=== PATIENT | female | born 1985 | race Caucasian/White ===

== ENCOUNTER 2016-07-26 14:13 | Emergency (ER) | payer SELFPAY ==
[~2016-07-26] VITALS: Ht 152.4 cm; Wt 57.2 kg
[~2016-07-26 14:13] MED LIST: ASPI-390 PO; IBUP-1050 PO
[2016-07-26 14:16] VITALS: TEMP 36.9; Ht 152.4 cm; Wt 57.2 kg
--- NOTE | 2016-07-26 14:45 | EMERGENCY ROOM VISIT NOTE ---
History Report prepared by Sachinibe: Sowmya Patel Under the Supervision of: Dr. Katia Fam M.D. First contact with patient: 14:32 Chief Complaint: VAGINAL DISCHARGE Stated Complaint: SOMETHING IS COMING OUT OF PATIENT History of Present Illness The patient is a 31 year old female who presents to the Emergency Room with complaints of persistent vaginal bleeding and discharge over the past month and a half. The patient states that she has had multiple abnormal menstrual periods and came to the emergency room to be evaluated for her vaginal bleeding a week ago. She admits that she became irritated due to the long wait in the ER and left without full testing and treatment. Since then, the bleeding has slowed down some. The patient states that she has noticed a clear, foul smelling fluid coming from her vagina. When she started her stream of urine earlier today, she felt something come out of her vagina and saw a white solid mass coming from her vagina. The patient states that there is no chance of as she has not had intercourse in several years. She has had one vaginal delivery 13 years ago. She does have her uterus. Source of History: patient Onset: a month and a half ago Position: other (vaginal) Quality: other (foul odor) Timing: other (persistent) Review of Systems See HPI for pertinent positives & negatives. A total of 10 systems reviewed and were otherwise negative. Past Medical & Surgical Medical Problems: (1) Kidney stones (2) Methicillin resistant Staphylococcus aureus infection Surgical Problems: (1) History of lithotripsy Family History Diabetes mellitus Social History Smoking Status: Current Every Day Smoker Alcohol Use: none Drug Use: none Marital Status: single Housing Status: lives with family Occupation Status: employed Current/Historical Medications Scheduled Buprenorphine Hcl-Naloxone Hcl (Suboxone 8-2 Mg), 1 EA SL DAILY Ibuprofen (Advil), 600 MG PO BID Miscellaneous Medications Tbbjpqp-Wekoghfcemqqx-Jocttqar (Excedrin Migraine), 1 TAB PO Allergies Coded Allergies: No Known Allergies (Unverified , 07/26/16) Physical Exam Vital Signs Date Time Temp Pulse Resp B/P Pulse Ox O2 Delivery O2 Flow Rate FiO2 07/26/16 18:56 69 18 120/77 100 07/26/16 18:05 68 20 115/78 99 Room Air 07/26/16 16:07 66 18 130/87 100 Room Air 07/26/16 14:16 36.9 78 18 146/97 96 Room Air Physical Exam Vital signs reviewed. General: Well-appearing 31 year old female, in no significant distress. HEENT: No scleral icterus, PERRLA, neck supple. Atraumatic. Cardiovascular: Regular rate and rhythm, no extra sounds. Pulmonary: Clear to auscultation bilaterally, normal work of breathing. Abdomen: Soft, nontender, nondistended, positive bowel sounds. Pelvic: She has normal external female genitals, clear vaginal discharge, 5 cm soft tissue mass fairly smooth with a white-maida discoloration, unable to be reduced without significant pain, minimal dark blood in the vault. Musculoskeletal: Atraumatic, no peripheral edema. Neurologic: Patient awake alert and oriented x 3 Skin: Warm, dry, no rash Medical Decision & Procedures ER Provider Diagnostic Interpretation: Radiology results as stated below per my review and radiologist interpretation: PELVIC ULTRASOUND, TRANSABDOMINAL AND TRANSVAGINAL HISTORY: dysfunctional uterine bleeding, clear d/c COMPARISON: Abdomen and pelvis CT 04/12/2014. FINDINGS: Uterus: 10.1 x 5.6 x 6.7 cm. The cervix is distended and filled with complex fluid. The cervix is heterogeneous and demonstrates increased color flow. The endometrial stripe is borderline thickened measuring up to 1.3 cm. The endometrial stripe is heterogeneous and demonstrates increased color flow. There are normal bilateral ovaries. No significant pelvic free fluid. Multiple bowel loops within the right adnexa. IMPRESSION: 1. Distended cervix containing complex fluid. The cervix is heterogeneous and demonstrates increased color flow. There is also a heterogeneous and borderline thickened endometrium demonstrating increased color flow. Therefore, this could represent an infectious process such as pelvic inflammatory disease. Clinical correlation recommended. 2. Normal bilateral ovaries. Electronically signed by: Jace Be M.D. 07/26/2016 5:57 PM Dictated Date/Time: 07/26/2016 5:50 PM Laboratory Results 07/26/16 15:05 Red Blood Count 3.50, Mean Corpuscular Volume 87.7, Mean Corpuscular Hemoglobin 28.6, Mean Corpuscular Hemoglobin Concent 32.6, Mean Platelet Volume 9.9, Neutrophils (%) (Auto) 49.3, Lymphocytes (%) (Auto) 39.0, Monocytes (%) (Auto) 7.8, Eosinophils (%) (Auto) 3.4, Basophils (%) (Auto) 0.4, Neutrophils # (Auto) 3.82, Lymphocytes # (Auto) 3.02, Monocytes # (Auto) 0.60, Eosinophils # (Auto) 0.26, Basophils # (Auto) 0.03 07/26/16 15:05 Test 07/26/16 15:00 07/26/16 15:05 07/26/16 15:25 Urine Color YELLOW Urine Appearance CLEAR (CLEAR) Urine pH 6.5 (4.5-7.5) Urine Specific [place] 1.018 (1.000-1.030) Urine Protein NEG (NEG) Urine Glucose (UA) NEG (NEG) Urine Ketones NEG (NEG) Urine Occult Blood 2+ (NEG) Urine Nitrite NEG (NEG) Urine Bilirubin NEG (NEG) Urine Urobilinogen NEG (NEG) Urine Leukocyte Esterase TRACE (NEG) Urine WBC (Auto) 1-5 /hpf (0-5) Urine RBC (Auto) 10-30 /hpf (0-4) Urine Hyaline Casts (Auto) 0 /lpf (0-5) Urine Epithelial Cells (Auto) 10-20 /lpf (0-5) Urine Bacteria (Auto) NEG (NEG) Urine Test NEG (NEG) White Blood Count 7.74 K/uL (4.8-10.8) Red Blood Count 3.50 M/uL (4.2-5.4) Hemoglobin 10.0 g/dL (12.0-16.0) Hematocrit 30.7 % (37-47) Mean Corpuscular Volume 87.7 fL (80-100) Mean Corpuscular Hemoglobin 28.6 pg (25-34) Mean Corpuscular Hemoglobin Concent 32.6 g/dl (32-36) Platelet Count 313 K/uL (130-400) Mean Platelet Volume 9.9 fL (7.4-10.4) Neutrophils (%) (Auto) 49.3 % Lymphocytes (%) (Auto) 39.0 % Monocytes (%) (Auto) 7.8 % Eosinophils (%) (Auto) 3.4 % Basophils (%) (Auto) 0.4 % Neutrophils # (Auto) 3.82 K/uL (1.4-6.5) Lymphocytes # (Auto) 3.02 K/uL (1.2-3.4) Monocytes # (Auto) 0.60 K/uL (0.11-0.59) Eosinophils # (Auto) 0.26 K/uL (0-0.5) Basophils # (Auto) 0.03 K/uL (0-0.2) RDW Standard Deviation 43.1 fL (36.4-46.3) RDW Coefficient of Variation 13.4 % (11.5-14.5) Immature Granulocyte % (Auto) 0.1 % Immature Granulocyte # (Auto) 0.01 K/uL (0.00-0.02) Anion Gap 8.0 mmol/L (3-11) Est Creatinine Clear Calc Drug Dose 140.9 ml/min Estimated GFR () > 150.0 Estimated GFR (Non- 131.7 BUN/Creatinine Ratio 40.7 (10-20) Calcium Level 8.6 mg/dl (8.5-10.1) Total Bilirubin 0.2 mg/dl (0.2-1) Direct Bilirubin < 0.1 mg/dl (0-0.2) Aspartate Amino Transf (AST/SGOT) 15 U/L (15-37) Alanine Aminotransferase (ALT/SGPT) 17 U/L (12-78) Alkaline Phosphatase 65 U/L (45-117) Total Protein 6.8 gm/dl (6.4-8.2) Albumin 3.6 gm/dl (3.4-5.0) Laboratory results per my review. Medications Administered Medications (Trade) Dose Ordered Sig/Juwan Route Start Time Stop Time Status Last Admin Dose Admin Sodium Chloride (Nss 1000ml) 1,000 ml @ 999 mls/hr Q1H1M STAT IV 07/26/16 14:46 07/26/16 15:46 DC 07/26/16 15:35 999 MLS/HR Ketorolac Tromethamine (Toradol Inj) 30 mg NOW STAT IV 07/26/16 14:46 07/26/16 14:50 DC 07/26/16 15:35 30 MG ED Course 1436: Past medical records reviewed. The patient was evaluated in room C5. A complete history and physical examination was performed. 1446: Ordered Toradol Inj 30 mg IV, NSS 1000 ml @ 999 mls/hr IV. 1805: I discussed the imaging results with Dr. Be - Radiology. 1810: I discussed the case with Dr. Juan Carlos CABR[employer]A [employer]. She will have the office call the patient on Thursday to schedule an outpatient appointment. She thinks the patient's radiology results and physical exam suggest a polyp obstructing uterine flow. 1814: Upon reevaluation, the patient was resting comfortably. I discussed findings with the patient. She verbalized agreement of the treatment plan. The patient was discharged home. Medical Decision Differential diagnosis: Dysfunctional uterine bleeding, uterine mass, uterine prolapse, bladder prolapse , rectal prolapse, uterine fibroid, STD. This patient was evaluated and appeared to be in no significant distress. IV access was obtained and laboratory work was drawn. Pelvic exam was performed and reveals a large mass near the cervix. An ultrasound was performed and is read as above. Vaginal cultures were sent. I did discuss the findings with Dr. Brittni Rangel of [employer]. She suggests that may be the mass is a polyp of the cervix and is blocking flow from the uterus. Nonetheless patient is stable and this has been going on for several weeks if not longer. Case management evaluated the patient and gave her some resources regarding insurance coverage. [employer] will contact the patient on Thursday morning with an appointment for evaluation this week. Patient seems happy with the plan and will return to the ER for worsening of symptoms or any medical concerns. Consults Time Called: 1800 Consulting Physician: Dr. Be - Radiology Returned Call: [phone] I discussed the imaging results with him. Additional Consults: Time Called: 180 Consulted Physician: Dr. Juan Carlos CAB[employer] Returned Call: [phone] Additional Comments: I discussed the case with her. She will have the office call the patient on Thursday to schedule an outpatient appointment. She thinks the patient's radiology results and physical exam suggest a polyp obstructing uterine flow. Impression Primary Impression: Cervical mass Scribe Attestation The scribe's documentation has been prepared under my direction and personally reviewed by me in its entirety. I confirm that the note above accurately reflects all work, treatment, procedures, and medical decision making performed by me. Departure Information Dispostion Home / Self-Care Referrals No Doctor, Assigned (PCP) Brittni Rangel M.D.([employer]) Forms HOME CARE DOCUMENTATION FORM, IMPORTANT VISIT INFORMATION, WORK / SCHOOL INSTRUCTIONS Patient Instructions A Signature Page, My [facility] Additional Instructions Diagnosis: Cervical mass [employer] O[employer] will call you on Thursday to help arrange a follow-up appointment. Return to the emergency department for worsening of symptoms or any medical concerns.
[2016-07-26] MEDS ORDERED: SODIUM CHLORIDE 0.9% 1000ML 1,000 ML IV STA (14:46)
[2016-07-26] MEDS ORDERED: KETOROLAC TROMETHAMINE 30 MG/ML VIAL IV STA (14:46)
[2016-07-26 15:21] LABS: BASO % 0.4 %; BASO ABS # 0.03 K/uL (0-0.2); COMPLETE YES; EOS % 3.4 %; HEMATOCRIT 30.7 % (37-47); IG% 0.1 %; LYMPH ABS # 3.02 K/uL (1.2-3.4); MEAN CELL VOLUME 87.7 fL (80-100); MEAN CORPUSCULAR HEMOGLOBIN 28.6 pg (25-34); MEAN CORPUSCULAR HGB CONC 32.6 g/dl (32-36); MEAN PLATELET VOLUME 9.9 fL (7.4-10.4); MONO % 7.8 %; NEUT % 49.3 %; PLATELET COUNT 313 K/uL (130-400); WHITE BLOOD COUNT 7.74 K/uL (4.8-10.8)
[2016-07-26 15:30] LABS: URINE APPEARANCE CLEAR (CLEAR); URINE BILIRUBIN NEG (NEG); URINE COLOR YELLOW; URINE NITRITE NEG (NEG); URINE PH 6.5 (4.5-7.5); URINE SPECIFIC GRAVITY 1.018 (1.000-1.030); UROBILINOGEN NEG (NEG); ZZUR CULT IF INDIC CLEAN CATCH NO
[2016-07-26 15:33] LABS: MANUAL MICROSCOPIC REQUIRED? NO; REVIEW REQ? NO
[2016-07-26 15:35] LABS: ALT/SGPT 17 U/L (12-78); BLOOD UREA NITROGEN 18 mg/dl (7-18); BUN/CREATININE RATIO 40.7 (10-20); CALCIUM 8.6 mg/dl (8.5-10.1); CARBON DIOXIDE 26 mmol/L (21-32); CHLORIDE 107 mmol/L (98-107); CREATININE 0.45 mg/dl (0.60-1.20); GLUCOSE 78 mg/dl (70-99); POTASSIUM 3.7 mmol/L (3.5-5.1); SODIUM 141 mmol/L (136-145)
[2016-07-26 15:38] LABS: ALKALINE PHOSPHATASE 65 U/L (45-117); AST/SGOT 15 U/L (15-37)
--- NOTE | 2016-07-26 17:59 | DIAGNOSTIC IMAGING REPORT ---
PELVIC ULTRASOUND, TRANSABDOMINAL AND TRANSVAGINAL HISTORY: dysfunctional uterine bleeding, clear d/c COMPARISON: Abdomen and pelvis CT 04/12/2014. FINDINGS: Uterus: 10.1 x 5.6 x 6.7 cm. The cervix is distended and filled with complex fluid. The cervix is heterogeneous and demonstrates increased color flow. The endometrial stripe is borderline thickened measuring up to 1.3 cm. The endometrial stripe is heterogeneous and demonstrates increased color flow. There are normal bilateral ovaries. No significant pelvic free fluid. Multiple bowel loops within the right adnexa. IMPRESSION: 1. Distended cervix containing complex fluid. The cervix is heterogeneous and demonstrates increased color flow. There is also a heterogeneous and borderline thickened endometrium demonstrating increased color flow. Therefore, this could represent an infectious process such as pelvic inflammatory disease. Clinical correlation recommended. 2. Normal bilateral ovaries. Electronically signed by: Jace Be M.D. 07/26/2016 5:57 PM Dictated Date/Time: 07/26/2016 5:50 PM
[2016-07-26 18:56] VITALS: BP 120/77; PULSE 69; O2SAT 100
[2016-07-30 03:25] LABS: CHLAMYDIA TRACH RNA*** NOT DETECTED (NOT DETECTED); GC (NEIS GONORRHOEAE)RNA** NOT DETECTED (NOT DETECTED); TRICHOMONAS VAGINALIS RNA** NOT DETECTED (NOT DETECTED)
[2016-08-11] MEDS ORDERED: ASPI-390 PO (10:00)
[2016-08-11] MEDS ORDERED: BUPR8MIS SL (16:46)
== END 2016-07-26 18:57 | disposition home or self-care (01) ==
LOC: C.EDB 14:14 → C.EDC 18:57
DX: N88.9 Noninflammatory disorder of cervix uteri, unspecified (principal); F17.200 Nicotine dependence, unspecified, uncomplicated; Z86.14 Personal history of Methicillin resistant Staphylococcus aureus infection

== ENCOUNTER 2016-08-09 10:59 | Emergency (ER) | payer SELFPAY ==
[~2016-08-09] VITALS: Ht 149.9 cm; Wt 54.5 kg
[2016-08-09 11:05] VITALS: TEMP 37.2; Ht 149.9 cm; Wt 54.5 kg
[2016-08-09] MEDS ORDERED: SODIUM CHLORIDE 0.9% 500ML 500 ML IV STA (11:45)
[2016-08-09 12:06] LABS: HEMATOCRIT 22.9 % (37-47); MEAN CELL VOLUME 84.8 fL (80-100); MEAN CORPUSCULAR HGB CONC 31.9 g/dl (32-36); MEAN PLATELET VOLUME 9.2 fL (7.4-10.4); PLATELET COUNT 312 K/uL (130-400)
[2016-08-09 12:29] LABS: BASO % 0.1 %; BASO ABS # 0.01 K/uL (0-0.2); COMPLETE YES; EOS % 1.5 %; HYPOCHROMIA PRESENT; IG% 0.1 %; LYMPH % 29.1 %; MONO % 8.3 %; NEUT % 60.9 %; POLYCHROMASIA 1+
[2016-08-09 12:30] LABS: ALT/SGPT 14 U/L (12-78); AST/SGOT 5 U/L (15-37); BLOOD UREA NITROGEN 15 mg/dl (7-18); BUN/CREATININE RATIO 29.1 (10-20); CALCIUM 8.1 mg/dl (8.5-10.1); CARBON DIOXIDE 27 mmol/L (21-32); CHLORIDE 111 mmol/L (98-107); CREATININE 0.51 mg/dl (0.60-1.20); GLUCOSE 82 mg/dl (70-99); POTASSIUM 3.9 mmol/L (3.5-5.1); SODIUM 143 mmol/L (136-145)
[2016-08-09 12:33] LABS: ALKALINE PHOSPHATASE 57 U/L (45-117)
--- NOTE | 2016-08-09 13:44 | DIAGNOSTIC IMAGING REPORT ---
ULTRASOUND OF THE PELVIS CLINICAL HISTORY: Pelvic mass. COMPARISON STUDY: Pelvic CT dated 04/12/2014. Pelvic ultrasound dated 07/26/2016. TECHNIQUE: Real-time, grayscale, and color flow sonography of the pelvis is performed both transabdominally and endovaginally. Images are reviewed in the transverse and longitudinal planes. FINDINGS: Uterus: The retroverted uterus is normal in size measuring 9.9 x 6.6 x 6.7 cm. Endometrium: The endometrium is slightly heterogeneous, and the endometrial stripe measures up to 0.6 cm. There is questionable mild vascularity within the endometrium on color flow imaging. Cervix: The cervix appears heterogeneous and slightly hyperemic, and is distended and filled with complex nonvascular fluid. This is unchanged from previous. Ovaries: The ovaries are normal in size and morphology, and only visualized transabdominally. The right ovary measures 3.0 x 2.2 x 3.0 cm and the left ovary measures 3.7 x 1.6 x 2.7 cm. Small follicles are seen bilaterally. Normal Doppler waveforms are shown within both ovaries. Pelvis: There is a small volume of free fluid in the cul-de-sac. No concerning adnexal lesion is seen. IMPRESSION: 1. The cervix is distended and filled with complex fluid. This is similar in appearance to the 07/26/2016 examination. The cervix appears heterogeneous and demonstrates increased color flow. There is also mild heterogeneity of the endometrial stripe. This is indeterminant, and could be seen in the setting of pelvic inflammatory disease/infection. This could also represent blood products or less likely an incomplete . Correlation with clinical and laboratory findings will be essential. Follow-up with gynecology is recommended. 2. The ovaries are normal as visualized. 3. No adnexal mass lesion is seen. Electronically signed by: Dhaval Johns M.D. 08/09/2016 1:43 PM Dictated Date/Time: 08/09/2016 1:35 PM
[2016-08-09 14:27] LABS: URINE APPEARANCE CLEAR (CLEAR); URINE BILIRUBIN NEG (NEG); URINE COLOR YELLOW; URINE NITRITE NEG (NEG); URINE SPECIFIC GRAVITY 1.022 (1.000-1.030); UROBILINOGEN NEG (NEG); ZZUR CULT IF INDIC CLEAN CATCH NO
[2016-08-09 14:32] LABS: MANUAL MICROSCOPIC REQUIRED? NO; REVIEW REQ? NO
[2016-08-09 15:15] VITALS: BP 106/78; PULSE 78; O2SAT 92
--- NOTE | 2016-08-09 15:38 | Medical Consult ---
Consultation Note Consultation Note OBGYN Consult Reason for consult: mass protruding in vagina, hemoglobin 7.3 Physician ordering consult: Dr Kasandra Oviedo CC: difficulty urinating HPI: Patient is a 31yo who presented to the emergency department today with complaint of mass protruding into the vagina making it sometimes difficult to urinate. She has a known fibroid protruding into the vaginal canal, and saw Dr Velasco in the office 07/28/16. His plan is to surgically remove mass. Due to problems with patient's insurance, she has not yet scheduled surgery, but is in talks with delinquency prevention officer Jackineena Das to obtain coverage. Today, patient reports that she is not having any current vaginal bleeding, but the mass sometimes bleeds like a period. She uses a tampon to splint the mass, and this makes her able to urinate. Denies dysuria, denies weakness/dizziness. Ambulating about the ER room without difficulty. PMH: opioid use, kidney stones PSH: lithotripsy Soc: current smoker, denies drug/ETOH use. Fam: noncontributory Allergies: NKDA Meds: suboxone ROS: all systems reviewed, negative except as above. Date Time Temp Pulse Resp B/P Pulse Ox O2 Delivery O2 Flow Rate FiO2 08/09/16 15:15 78 18 106/78 92 Room Air 08/09/16 13:33 79 18 129/82 100 Room Air 08/09/16 11:05 37.2 95 18 134/75 100 Room Air Gen: AAOx3 NAD CV: RRR S1S2 no MGR L:CTAB Abd: soft, NTTP, no palpable masses, no rebound/guarding Ext: no edema, no calf tenderness Pelvic exam: purple smooth mass protruding from cervix into vagina, to approximately hymenal ring. Causes dilation of cervix, unable to palpate stalk. Foul-smelling discharge. No vaginal bleeding on exam. Nontender. 08/09/16 11:55 Red Blood Count 2.70, Mean Corpuscular Volume 84.8, Mean Corpuscular Hemoglobin 27.0, Mean Corpuscular Hemoglobin Concent 31.9, Mean Platelet Volume 9.2, Neutrophils (%) (Auto) 60.9, Lymphocytes (%) (Auto) 29.1, Monocytes (%) (Auto) 8.3, Eosinophils (%) (Auto) 1.5, Basophils (%) (Auto) 0.1, Neutrophils # (Auto) 5.24, Lymphocytes # (Auto) 2.50, Monocytes # (Auto) 0.71, Eosinophils # (Auto) 0.13, Basophils # (Auto) 0.01 Test 08/09/16 11:55 08/09/16 12:50 White Blood Count 8.60 K/uL (4.8-10.8) Red Blood Count 2.70 M/uL (4.2-5.4) Hemoglobin 7.3 g/dL (12.0-16.0) Hematocrit 22.9 % (37-47) Mean Corpuscular Volume 84.8 fL (80-100) Mean Corpuscular Hemoglobin 27.0 pg (25-34) Mean Corpuscular Hemoglobin Concent 31.9 g/dl (32-36) Platelet Count 312 K/uL (130-400) Mean Platelet Volume 9.2 fL (7.4-10.4) Neutrophils (%) (Auto) 60.9 % Lymphocytes (%) (Auto) 29.1 % Monocytes (%) (Auto) 8.3 % Eosinophils (%) (Auto) 1.5 % Basophils (%) (Auto) 0.1 % Neutrophils # (Auto) 5.24 K/uL (1.4-6.5) Lymphocytes # (Auto) 2.50 K/uL (1.2-3.4) Monocytes # (Auto) 0.71 K/uL (0.11-0.59) Eosinophils # (Auto) 0.13 K/uL (0-0.5) Basophils # (Auto) 0.01 K/uL (0-0.2) RDW Standard Deviation 41.1 fL (36.4-46.3) RDW Coefficient of Variation 13.5 % (11.5-14.5) Immature Granulocyte % (Auto) 0.1 % Immature Granulocyte # (Auto) 0.01 K/uL (0.00-0.02) Polychromasia 1+ Hypochromasia PRESENT Anion Gap 5.0 mmol/L (3-11) Est Creatinine Clear Calc Drug Dose 118.2 ml/min Estimated GFR () 146.4 Estimated GFR (Non- 126.3 BUN/Creatinine Ratio 29.1 (10-20) Calcium Level 8.1 mg/dl (8.5-10.1) Total Bilirubin 0.1 mg/dl (0.2-1) Direct Bilirubin < 0.1 mg/dl (0-0.2) Aspartate Amino Transf (AST/SGOT) 5 U/L (15-37) Alanine Aminotransferase (ALT/SGPT) 14 U/L (12-78) Alkaline Phosphatase 57 U/L (45-117) Total Protein 6.3 gm/dl (6.4-8.2) Albumin 2.9 gm/dl (3.4-5.0) Lipase 74 U/L (73-393) Urine Color YELLOW Urine Appearance CLEAR (CLEAR) Urine pH 6.0 (4.5-7.5) Urine Specific [place] 1.022 (1.000-1.030) Urine Protein NEG (NEG) Urine Glucose (UA) NEG (NEG) Urine Ketones NEG (NEG) Urine Occult Blood NEG (NEG) Urine Nitrite NEG (NEG) Urine Bilirubin NEG (NEG) Urine Urobilinogen NEG (NEG) Urine Leukocyte Esterase NEG (NEG) Urine Test NEG (NEG) Ultrasound performed today: normal appearing endometrium. Ultrasound mentions fluid in cervix, no mention of vaginal mass. Bladder ultrasound performed at bedside by Dr Oviedo: 43cc residual A/P 1. 31yo with fibroid protrusion into vagina - Patient will ultimately need surgical management of this problem, however she is stable at this time and does not require emergent surgery. She has stable vitals and is able to ambulate around the room without symptoms. She is not having any bleeding today. When patient uses a tampon, she is able to urinate with a 43cc residual on bladder scan. Recommend that patient call our office on Thursday to schedule surgery. 2. anemia of acute loss - Hgb 7.3. Vitals are stable and she is not currently bleeding. I discussed with patient that while she is currently stable, it may behoove her to transfuse 2u PRBC to provide a better starting point prior to surgery. She states that she does not want to have a blood transfusion at this time and would prefer to take iron tablets. Recommend that she take 325mg iron BID. 3. trouble urinating - patient notes that she is able to splint with a tampon and this allows her to urinate. She has a bladder postvoid residual of 43cc. Recommend that she use a tampon with a small amount of lubricant and change it at least every 8 hours.
--- NOTE | 2016-08-09 17:02 | EMERGENCY ROOM VISIT NOTE ---
History Report prepared by Maxim: Charis Morales Under the Supervision of: Dr. Evens Oviedo D.O. First contact with patient: 11:21 Chief Complaint: UNABLE TO VOID Stated Complaint: CAN'T URINATE History of Present Illness The patient is a 31 year old female who presents to the Emergency Room with complaints of persistently being unable to void that started a couple days ago. She states that she is experiencing pain with urination, along with having to strain to void. She was able to pass a small amount of urine this morning. Her last bowel movement was this morning and it was normal. The patient is also experiencing headaches and fatigue. Additionally, she is experiencing dizziness with exertion.. She denies fevers, chest pain, shortness of breath, nausea, vomiting, diarrhea, and new vaginal discharge. The patient was seen in the ED on July 26, 2016 and was setup with a follow-up with [facility] PROSPECTING SUPERVISOR on the week of July 29, 2016. She saw Dr. Velasco - OB-GRAVITY PROSPECTING SUPERVISOR two weeks ago and was diagnosed with a prolapsed fibroid tumor. She has been experiencing nonstop vaginal bleeding for the past 2 months as a result of that. Dr. Velasco told her that they would operate, but there has been a problem with her insurance so they have not scheduled anything yet. She has been going through several pads an hour for the past month per the patient. Her bleeding has actually decreased recently over the past 24-48 hours. Source of History: patient Onset: a couple days ago Position: other (bladder) Quality: other (unable to void) Timing: other (persistent) Associated Symptoms: + fatigue, + headache, No SOB, No chest pain, No diarrhea, No fevers, No nausea, No vomiting Note: dizziness with exertion, no new vaginal discharge Review of Systems See HPI for pertinent positives & negatives. A total of 10 systems reviewed and were otherwise negative. Past Medical & Surgical Medical Problems: (1) Kidney stones (2) Methicillin resistant Staphylococcus aureus infection Surgical Problems: (1) History of lithotripsy Family History Diabetes mellitus Social History Smoking Status: Current Every Day Smoker Alcohol Use: none Drug Use: none Marital Status: single Housing Status: lives with family Occupation Status: employed Current/Historical Medications Scheduled Buprenorphine Hcl-Naloxone Hcl (Suboxone 8-2 Mg), 1 EA SL DAILY Scheduled PRN Fjgzsus-Ewfemsyaayvjz-Trqmmeci (Excedrin Migraine), 1 TAB PO DAILY PRN for Headache Allergies Coded Allergies: No Known Allergies (Unverified , 08/09/16) Physical Exam Vital Signs Date Time Temp Pulse Resp B/P Pulse Ox O2 Delivery O2 Flow Rate FiO2 08/09/16 15:15 78 18 106/78 92 Room Air 08/09/16 13:33 79 18 129/82 100 Room Air 08/09/16 11:05 37.2 95 18 134/75 100 Room Air Physical Exam GENERAL: alert, sitting up in bed, disheveled appearing, well nourished, no distress, non-toxic EYE EXAM: normal conjunctiva OROPHARYNX: no exudate, no erythema, lips, buccal mucosa, and tongue normal and mucous membranes are moist NECK: supple, no nuchal rigidity, no adenopathy, non-tender LUNGS: Clear to auscultation. Normal chest wall mechanics HEART: no murmurs, S1 normal and S2 normal ABDOMEN: abdomen soft, non-tender, normo-active bowel sounds, no masses, no rebound or guarding. BACK: Back is symmetrical on inspection and there is no deformity, no midline tenderness, no CVA tenderness. PELVIC: Normal external genitalia, at 1-5 o'clock there is a large firm mass with pale, green to black color and slight yellowish discharge, small clots present, unable to visualize cervix. SKIN: no rashes and no bruising UPPER EXTREMITIES: upper extremities are grossly normal. LOWER EXTREMITIES: No pitting edema. NEURO EXAM: Normal sensorium, cranial nerves II-XII grossly intact, normal speech, no gross weakness of arms, no gross weakness of legs. Medical Decision & Procedures ER Provider Diagnostic Interpretation: US results have been interpreted by the radiologist and reviewed by me. ULTRASOUND OF THE PELVIS IMPRESSION: 1. The cervix is distended and filled with complex fluid. This is similar in appearance to the 07/26/2016 examination. The cervix appears heterogeneous and demonstrates increased color flow. There is also mild heterogeneity of the endometrial stripe. This is indeterminant, and could be seen in the setting of pelvic inflammatory disease/infection. This could also represent blood products or less likely an incomplete . Correlation with clinical and laboratory findings will be essential. Follow-up with gynecology is recommended. 2. The ovaries are normal as visualized. 3. No adnexal mass lesion is seen. Electronically signed by: Dhaval Johns M.D. 08/09/2016 1:43 PM Dictated Date/Time: 08/09/2016 1:35 PM Laboratory Results 08/09/16 11:55 Red Blood Count 2.70, Mean Corpuscular Volume 84.8, Mean Corpuscular Hemoglobin 27.0, Mean Corpuscular Hemoglobin Concent 31.9, Mean Platelet Volume 9.2, Neutrophils (%) (Auto) 60.9, Lymphocytes (%) (Auto) 29.1, Monocytes (%) (Auto) 8.3, Eosinophils (%) (Auto) 1.5, Basophils (%) (Auto) 0.1, Neutrophils # (Auto) 5.24, Lymphocytes # (Auto) 2.50, Monocytes # (Auto) 0.71, Eosinophils # (Auto) 0.13, Basophils # (Auto) 0.01 08/09/16 11:55 Test 08/09/16 11:55 08/09/16 12:50 White Blood Count 8.60 K/uL (4.8-10.8) Red Blood Count 2.70 M/uL (4.2-5.4) Hemoglobin 7.3 g/dL (12.0-16.0) Hematocrit 22.9 % (37-47) Mean Corpuscular Volume 84.8 fL (80-100) Mean Corpuscular Hemoglobin 27.0 pg (25-34) Mean Corpuscular Hemoglobin Concent 31.9 g/dl (32-36) Platelet Count 312 K/uL (130-400) Mean Platelet Volume 9.2 fL (7.4-10.4) Neutrophils (%) (Auto) 60.9 % Lymphocytes (%) (Auto) 29.1 % Monocytes (%) (Auto) 8.3 % Eosinophils (%) (Auto) 1.5 % Basophils (%) (Auto) 0.1 % Neutrophils # (Auto) 5.24 K/uL (1.4-6.5) Lymphocytes # (Auto) 2.50 K/uL (1.2-3.4) Monocytes # (Auto) 0.71 K/uL (0.11-0.59) Eosinophils # (Auto) 0.13 K/uL (0-0.5) Basophils # (Auto) 0.01 K/uL (0-0.2) RDW Standard Deviation 41.1 fL (36.4-46.3) RDW Coefficient of Variation 13.5 % (11.5-14.5) Immature Granulocyte % (Auto) 0.1 % Immature Granulocyte # (Auto) 0.01 K/uL (0.00-0.02) Polychromasia 1+ Hypochromasia PRESENT Anion Gap 5.0 mmol/L (3-11) Est Creatinine Clear Calc Drug Dose 118.2 ml/min Estimated GFR () 146.4 Estimated GFR (Non- 126.3 BUN/Creatinine Ratio 29.1 (10-20) Calcium Level 8.1 mg/dl (8.5-10.1) Total Bilirubin 0.1 mg/dl (0.2-1) Direct Bilirubin < 0.1 mg/dl (0-0.2) Aspartate Amino Transf (AST/SGOT) 5 U/L (15-37) Alanine Aminotransferase (ALT/SGPT) 14 U/L (12-78) Alkaline Phosphatase 57 U/L (45-117) Total Protein 6.3 gm/dl (6.4-8.2) Albumin 2.9 gm/dl (3.4-5.0) Lipase 74 U/L (73-393) Urine Color YELLOW Urine Appearance CLEAR (CLEAR) Urine pH 6.0 (4.5-7.5) Urine Specific [place] 1.022 (1.000-1.030) Urine Protein NEG (NEG) Urine Glucose (UA) NEG (NEG) Urine Ketones NEG (NEG) Urine Occult Blood NEG (NEG) Urine Nitrite NEG (NEG) Urine Bilirubin NEG (NEG) Urine Urobilinogen NEG (NEG) Urine Leukocyte Esterase NEG (NEG) Urine Test NEG (NEG) Laboratory results per my review. Medications Administered Medications (Trade) Dose Ordered Sig/Juwan Route Start Time Stop Time Status Last Admin Dose Admin Sodium Chloride (Nss 500ml) 500 ml @ 999 mls/hr Q31M STAT IV 08/09/16 11:45 08/09/16 12:15 DC 08/09/16 11:45 999 MLS/HR ED Course ED COURSE: Vital signs were reviewed and showed normal. The patients medical record was reviewed The above diagnostic studies were performed and reviewed. ED treatments and interventions as stated above. 1127: The patient was evaluated in room C3. A complete history and physical examination was performed. 1145: Ordered Sodium Chloride 500 ml @ 999 mls/hr IV 1334: I reviewed the patient's case with Dr. Trivedi - [facility]PECTING SUPERVISOR. She is going to come in and evaluate the patient. 1447: Dr. Trivedi evaluated the patient and informed me that she does not think the patient needs any emergent surgery, since she is stable. She is going to have the office follow-up with the patient during the week. 1457: Upon reevaluation, the patient is doing well. She declined a blood transfusion. I discussed my findings with the patient and she understands and agrees with the treatment plan. Based on the patients age, coexisting illnesses, exam and lab findings the decision to treat as an outpatient was made. The patient remained stable while under my care. The patient appeared well at the time of discharge. Medical Decision Differential diagnoses include ectopic , dysfunction uterine bleeding, bleeding dyscrasia, trauma, infection, as well as others were entertained. Patient is a 31-year-old female who presents the ER for vaginal bleeding which is been present for the past month. She was seen here once in the ER earlier this month. She followed up with B[employer] PR[employer]ING SUPERVISOR and is supposed to have pelvic mass/ prolapsing uterine fibroid removed is having difficulty with insurance. Today she notes that her bleeding has actually improved. On exam no new pain. Labs are remarkable for hemoglobin of 7.3. This is trended down from 10 her last visit and upon review of her chart she started around 12. She is clearly symptom medical. BMP along with LFTs, bilirubin and lipase is unremarkable. UA was negative. She is completely emptying her bladder with a post void residual of 43 ML's. was negative. Pelvic ultrasound was unchanged. Patient was evaluated at bedside bysoila. Recommended transfusion but she declined. She prefers to follow up as an outpatient. She will likely be scheduled for the OR on Thursday morning. If anything changes of chest importance of returning to the ER. She is currently not bleeding on my pelvic exam by stressed that if this does recur or any things worsens she needs to return to the ER as her hemoglobin is extremely low at 7. Discussed with Pt concerning signs and symptoms to watch out for. Pt was instructed to follow up with their PCP and discussed with the patient their option to return to the ED at anytime for persistent or worsening symptoms. The appropriate anticipatory guidance and out-patient management, including indications for return to the emergency department, were explained at length to the patient and understood. Consults Time Called: 1331 Consulting Physician: Dr. Trivedi - OB[facility]PECTING SUPERVISOR Returned Call: [phone] I reviewed the patient's case with Dr. Trivedi - OB-GRAVITY PROSPECTING SUPERVISOR. She is going to come in and evaluate the patient. Impression Primary Impression: Vaginal bleeding Additional Impressions: Symptomatic anemia Pelvic mass Scribe Attestation The scribe's documentation has been prepared under my direction and personally reviewed by me in its entirety. I confirm that the note above accurately reflects all work, treatment, procedures, and medical decision making performed by me. Departure Information Dispostion Home / Self-Care Referrals No Doctor, Assigned (PCP) Forms HOME CARE DOCUMENTATION FORM, IMPORTANT VISIT INFORMATION, WORK / SCHOOL INSTRUCTIONS Patient Instructions Anemia, My [facility] [employer] Additional Instructions Please follow up with your data acquisition technician with in the next 24 hours. Any worsening of your symptoms, please return to the ED immediately. This includes return of bleeding from her vagina, feeling more dizzy or lightheaded, passing out, chest pain, shortness of breath, or any other concerning signs or symptoms from your standpoint. Please do not drive if you're feeling lightheaded or dizzy. Any recurrence of bleeding she should return to the ER. Please take one iron tab twice a day. Problem Qualifiers
== END 2016-08-09 15:21 | disposition home or self-care (01) ==
LOC: C.EDB 11:00 → C.EDC 15:21
DX: N93.9 Abnormal uterine and vaginal bleeding, unspecified (principal); D64.9 Anemia, unspecified; R19.00 Intra-abdominal and pelvic swelling, mass and lump, unspecified site; F17.200 Nicotine dependence, unspecified, uncomplicated; Z87.442 Personal history of urinary calculi; Z86.14 Personal history of Methicillin resistant Staphylococcus aureus infection; Z86.018 Personal history of other benign neoplasm; Z83.3 Family history of diabetes mellitus

== ENCOUNTER 2016-08-11 09:36 | Observation (INO) | payer SELFPAY ==
[~2016-08-11] VITALS: Ht 149.9 cm; Wt 55.0 kg
[2016-08-11] VITALS (14 sets, daily range): BP systolic 99–120; BP diastolic 64–78; PULSE 69–93; TEMP 36.7–37.2; O2SAT 96–100; Ht 149.9 cm; Wt 55.0 kg
[2016-08-11] MEDS ORDERED: ASPI-390 PO ×2 (10:00)
[2016-08-11] MEDS ORDERED: SODIUM CHLORIDE 0.9% 1000ML 500 ML IV STA (10:20)
[2016-08-11] MEDS ORDERED: SODIUM CHLORIDE 0.9% 1000ML 1,000 ML IV STA (10:20)
--- NOTE | 2016-08-11 10:32 | EMERGENCY ROOM VISIT NOTE ---
History Report prepared by Maxim: Earnestine Jarrett Under the Supervision of: Dr. Dhaval Forbes M.D. First contact with patient: 10:10 Chief Complaint: SHORTNESS OF BREATH Stated Complaint: TROUBLE BREATHING - FIBROID MASS OPERATION TODAY Nursing Triage Summary: "I was here on thursday told I need a blood transfusion. I am feeling short of breath and have a real bad headache" History of Present Illness The patient is a 31 year old female who presents to the Emergency Room with complaints of persistent shortness of breath that began last evening. She currently rates her discomfort as an 8/10 in severity. Per records, the patient was evaluated in the emergency department on 08/09 and was found to have a uterine cervical mass. Records indicate that the patient was recommended to have a blood transfusion because her hemoglobin was 7.3. Records indicate that the patient declined the blood transfusion and went home. Per records the patient had an venture capital analyst consult that day. Today the patient notes shortness of breath, a headache, and fatigue. She states that the vaginal bleeding has subsided. The patient states that she was supposed to see venture capital analyst today to consult for surgery, but states that since she was not feeling well, she came here. The patient notes a history of kidney stones, but denies any history of lung, heart or spleen problems. She denies any abdominal pain. The patient's problems began three months ago with urinary symptoms and vaginal bleeding. Source of History: patient, parent (mother) Onset: last evening Position: other (global) Symptom Intensity: 8/10 Quality: other (shortness of breath) Timing: other (persistent) Associated Symptoms: + fatigue, + headache, + urinary symptoms, No abdominal pain Review of Systems See HPI for pertinent positives & negatives. A total of 10 systems reviewed and were otherwise negative. Past Medical & Surgical Medical Problems: (1) Kidney stones (2) Methicillin resistant Staphylococcus aureus infection (3) Uterine fibroid Surgical Problems: (1) History of lithotripsy Family History Diabetes mellitus Social History Smoking Status: Current Every Day Smoker Alcohol Use: none Drug Use: none Marital Status: single Housing Status: lives with family Occupation Status: employed Current/Historical Medications Scheduled Buprenorphine Hcl-Naloxone Hcl (Suboxone 8-2 Mg), 1 EA SL DAILY Scheduled PRN Tqtbldw-Rgofxwikjrepi-Scuevewu (Excedrin Migraine), 1 TAB PO DAILY PRN for Headache Allergies Coded Allergies: No Known Allergies (Unverified , 08/09/16) Physical Exam Vital Signs Date Time Temp Pulse Resp B/P Pulse Ox O2 Delivery O2 Flow Rate FiO2 08/11/16 09:58 80 08/11/16 09:54 100 Room Air 08/11/16 09:54 85 17 118/83 97 Room Air 08/11/16 09:40 100 Room Air 08/11/16 09:38 37.0 92 18 130/80 100 Room Air Physical Exam GENERAL: Patient is in no acute distress. HEENT: No acute trauma, normocephalic atraumatic, mucous membranes moist, no nasal congestion, no scleral icterus. NECK: No stridor, no adenopathy, no meningismus, trachea is midline. LUNGS: Clear to auscultation bilaterally, no wheeze, no rhonchi, breath sounds equal. HEART: Without murmurs gallops or rubs, regular rate and rhythm. ABDOMEN: Soft, nontender, bowel sounds positive, no hernias, no peritonitis. EXTREMITIES: No cyanosis or edema, full range of motion of all the joints without pain or difficulty, no signs for acute trauma. NEUROLOGIC: Oriented x 3, no acute motor or sensory deficits, no focal weakness. SKIN: No rash, no jaundice, no diaphoresis. Medical Decision & Procedures ER Provider Diagnostic Interpretation: X-ray results as stated below per interpretation by me and the radiologist: CHEST ONE VIEW PORTABLE CLINICAL HISTORY: Altered mental status. Weakness. COMPARISON STUDY: Chest radiograph May 18, 2012. FINDINGS: Lung volumes are normal. There is no pneumothorax or pleural effusion. Cardiac size is normal. Mediastinal contours are normal. There is no evidence of pulmonary edema. IMPRESSION: No acute cardiopulmonary findings. Electronically signed by: Christian Mao M.D. 08/11/2016 10:41 AM Dictated Date/Time: 08/11/2016 10:41 AM Laboratory Results 08/11/16 10:14 Red Blood Count 2.69, Mean Corpuscular Volume 85.5, Mean Corpuscular Hemoglobin 26.8, Mean Corpuscular Hemoglobin Concent 31.3, Mean Platelet Volume 9.9, Neutrophils (%) (Auto) 59.6, Lymphocytes (%) (Auto) 28.3, Monocytes (%) (Auto) 9.9, Eosinophils (%) (Auto) 1.9, Basophils (%) (Auto) 0.2, Neutrophils # (Auto) 4.92, Lymphocytes # (Auto) 2.34, Monocytes # (Auto) 0.82, Eosinophils # (Auto) 0.16, Basophils # (Auto) 0.02 08/11/16 10:14 Test 08/11/16 10:14 White Blood Count 8.27 K/uL (4.8-10.8) Red Blood Count 2.69 M/uL (4.2-5.4) Hemoglobin 7.2 g/dL (12.0-16.0) Hematocrit 23.0 % (37-47) Mean Corpuscular Volume 85.5 fL (80-100) Mean Corpuscular Hemoglobin 26.8 pg (25-34) Mean Corpuscular Hemoglobin Concent 31.3 g/dl (32-36) Platelet Count 384 K/uL (130-400) Mean Platelet Volume 9.9 fL (7.4-10.4) Neutrophils (%) (Auto) 59.6 % Lymphocytes (%) (Auto) 28.3 % Monocytes (%) (Auto) 9.9 % Eosinophils (%) (Auto) 1.9 % Basophils (%) (Auto) 0.2 % Neutrophils # (Auto) 4.92 K/uL (1.4-6.5) Lymphocytes # (Auto) 2.34 K/uL (1.2-3.4) Monocytes # (Auto) 0.82 K/uL (0.11-0.59) Eosinophils # (Auto) 0.16 K/uL (0-0.5) Basophils # (Auto) 0.02 K/uL (0-0.2) RDW Standard Deviation 41.8 fL (36.4-46.3) RDW Coefficient of Variation 13.4 % (11.5-14.5) Immature Granulocyte % (Auto) 0.1 % Immature Granulocyte # (Auto) 0.01 K/uL (0.00-0.02) Red Blood Cell Morphology Unremarkable Prothrombin Time 11.0 SECONDS (9.0-12.0) Prothromb Time International Ratio 1.0 (0.9-1.1) Activated Partial Thromboplast Time 29.1 SECONDS (21.0-31.0) Partial Thromboplastin Ratio 1.1 Anion Gap 8.0 mmol/L (3-11) Est Creatinine Clear Calc Drug Dose 112.1 ml/min Estimated GFR () 143.7 Estimated GFR (Non- 124.0 BUN/Creatinine Ratio 26.2 (10-20) Calcium Level 8.5 mg/dl (8.5-10.1) Laboratory results reviewed by me. Medications Administered Medications (Trade) Dose Ordered Sig/Juwan Route Start Time Stop Time Status Last Admin Dose Admin Sodium Chloride 500 ml @ 999 mls/hr Q31M STAT IV 08/11/16 10:20 08/11/16 10:50 DC 08/11/16 10:33 999 MLS/HR Sodium Chloride 1,000 ml @ 200 mls/hr Q5H STAT IV 08/11/16 10:20 08/11/16 12:44 DC 08/11/16 11:21 200 MLS/HR Sodium Chloride (Nss 1000ml) 1,000 ml @ 125 mls/hr Q8H IV 08/11/16 11:16 09/10/16 11:15 08/11/16 15:08 125 MLS/HR ECG Indication: SOB/dyspnea Rate (beats per minute): 74 Rhythm: normal sinus Findings: no acute ischemic change, no ectopy ED Course 1015: The patient was evaluated in room A2. A complete history and physical exam was performed. I discussed the treatment plan with her and she verbalized complete understanding and agreement. She will be evaluated for further treatment. 1020: Ordered Sodium chloride 1000 ml @ 200 mls/hr IV, Sodium Chloride 500 ml @ 999 mls/hr IV. 1057: I discussed the patient's case with Dr. Arizmendi, venture capital analyst. She is going to evaluate the patient for further treatment. Medical Decision The patient is a 31 year old female who presents to the ED with complaints of shortness of breath. Differential diagnoses considered include Anemia, electrolyte imbalance, dehydration, UTI, pneumonia, dysrhythmia. There is no leukocytosis. The patient is quite anemic with a hemoglobin of 7.2. No significant electrolyte abnormality or kidney failure. There is no coagulopathy. Chest film shows no CHF or pneumonia. EKG shows a normal sinus rhythm, no acute ischemia. The patient presents with weakness, fatigue and some shortness of breath. She is quite anemic. I discussed her case with the on-call FOOTWEAR STITCHER doctor. The patient will be brought into the hospital for a blood transfusion and also likely for uterine surgery. Blood was ordered for transfusion, it is not yet ready to be given. The patient did receive IV saline. I talked to the patient, case management has been consulted. Consults Time Called: 1054 Consulting Physician: Dr. Arizmendi, venture capital analyst Returned Call: [phone] I discussed the patient's case with Dr. Arizmendi, venture capital analyst. She is going to evaluate the patient for further treatment. Impression Primary Impression: Anemia Additional Impressions: Weakness Vaginal bleeding Scribe Attestation The scribe's documentation has been prepared under my direction and personally reviewed by me in its entirety. I confirm that the note above accurately reflects all work, treatment, procedures, and medical decision making performed by me. Departure Information Dispostion Being Evaluated By Surgeon (FOOTWEAR STITCHER) Referrals Jacinto Velasco M.D. (PCP) Problem Qualifiers
[2016-08-11 10:37] LABS: BASO % 0.2 %; BASO ABS # 0.02 K/uL (0-0.2); EOS % 1.9 %; IG% 0.1 %; LYMPH % 28.3 %; LYMPH ABS # 2.34 K/uL (1.2-3.4); MEAN CELL VOLUME 85.5 fL (80-100); MEAN CORPUSCULAR HEMOGLOBIN 26.8 pg (25-34); MEAN CORPUSCULAR HGB CONC 31.3 g/dl (32-36); MEAN PLATELET VOLUME 9.9 fL (7.4-10.4); MONO % 9.9 %; NEUT % 59.6 %; PLATELET COUNT 384 K/uL (130-400); RED BLOOD COUNT 2.69 M/uL (4.2-5.4); WHITE BLOOD COUNT 8.27 K/uL (4.8-10.8)
--- NOTE | 2016-08-11 10:43 | DIAGNOSTIC IMAGING REPORT ---
CHEST ONE VIEW PORTABLE CLINICAL HISTORY: Altered mental status. Weakness. COMPARISON STUDY: Chest radiograph May 18, 2012. FINDINGS: Lung volumes are normal. There is no pneumothorax or pleural effusion. Cardiac size is normal. Mediastinal contours are normal. There is no evidence of pulmonary edema. IMPRESSION: No acute cardiopulmonary findings. Electronically signed by: Christian Mao M.D. 08/11/2016 10:41 AM Dictated Date/Time: 08/11/2016 10:41 AM
[2016-08-11 10:46] LABS: PARTIAL THROMBOPLASTIN RATIO 1.1
[2016-08-11 10:54] LABS: BUN/CREATININE RATIO 26.2 (10-20); CALCIUM 8.5 mg/dl (8.5-10.1); CREATININE 0.54 mg/dl (0.60-1.20); POTASSIUM 3.9 mmol/L (3.5-5.1)
[2016-08-11 11:06] LABS: COMPLETE YES
[2016-08-11] MEDS ORDERED: SODIUM CHLORIDE 0.9% 1000ML 1,000 ML IV SCH (11:16)
[2016-08-11] MEDS ORDERED: ACETAMINOPHEN 325 MG TAB PO PRN (11:30)
--- NOTE | 2016-08-11 11:30 | History and Physical ---
History & Physical Date & Time of Service: Aug 11, 2016 at 11:18 Chief Complaint: Trouble Breathing - Fibroid Mass Operation Today Primary Care Physician: Jacinto Velasco M.D. History of Present Illness Source: patient Patient is a 31yowf , x 1 who presents to the ED with symptomatic anemia. Patient known to our practice with a prolapsing 6cm fibroid through the cervical os into the vagina. It intermittently bleeds, can be heavy. Has been seen by Dr. Velasco and hoping to plan surgery but did not have insurance so working on this. Patient was then seen in the ED on 08/09 because she was unable to void. Patient uses a tampon to reduce so she can void. Hgb was found to be 7.3 at that time. She refused transfusion at that time. since then the patient has felt more symptomatic--sob, dizzy, headache, fatigue and represents. No significant increase in her bleeding, just spotting. She is now amendable to a transfusion. She is also orthostatic. Notes she is able to void ok now. Notes no f/c/n/v. Patient is on suboxone currently in maintainance therapy, except note being seen in a clinic because of insurance issues. She has been getting her suboxone off the street. She notes she only takes a "small amount". 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 psxhx--lithotripsy and cysto. Past Medical/Surgical History Medical Problems: (1) Kidney stones Status: Chronic (2) Methicillin resistant Staphylococcus aureus infection Status: Chronic Surgical Problems: (1) History of lithotripsy Status: Resolved Family History Diabetes mellitus Social History Smoking Status: Current Every Day Smoker Smokeless Tobacco Use: No Alcohol Use: none Drug Use: none Marital Status: single Housing status: lives with family Occupational Status: employed Immunizations History of Influenza Vaccine: No History of Tetanus Vaccine?: YES - 2 YEAR AGO History of Pneumococcal: No History of Hepatitis B Vaccine: Yes Multi-Drug Resistant Organisms History of MDRO: Yes Type of MDRO: MRSA Allergies Coded Allergies: No Known Allergies (Unverified , 08/09/16) Home Medications Scheduled Buprenorphine Hcl-Naloxone Hcl (Suboxone 8-2 Mg), 1 EA SL DAILY Scheduled PRN [id number]-Cmalhoegirxuu-Ydsyvddd (Excedrin Migraine), 1 TAB PO DAILY PRN for Headache Review of Systems Constitutional: + weight loss, No chills, No fatigue, No fever, No problem reported, No sweats, No weakness Respiratory: + dyspnea on exertion, + shortness of breath, No cough, No dyspnea at rest, No hemoptysis, No problem reported, No sputum, No wheezing Cardiovascular: No PND, No chest pain, No claudication, No edema, No orthopnea , No palpitations, No problem reported Abdomen: No GI bleeding, No constipation, No diarrhea, No nausea, No pain, No problem reported, No vomiting Genitourinary - Female: + menorrhagia, + vaginal bleeding, + vaginal discharge Psychiatric: No anhedonism, No anxiety, No depression symptoms, No insomnia, No problem reported, No substance abuse Endocrine: + fatigue, No excessive thirst, No excessive urination, No problem reported Physical Exam Vital Signs Date Time Temp Pulse Resp B/P Pulse Ox O2 Delivery O2 Flow Rate FiO2 08/11/16 09:58 80 08/11/16 09:54 100 Room Air 08/11/16 09:54 85 17 118/83 97 Room Air 08/11/16 09:40 100 Room Air 08/11/16 09:38 37.0 92 18 130/80 100 Room Air General Appearance: WD/WN, no apparent distress Neck: supple, no adenopathy Respiratory/Chest: lungs clear, normal breath sounds Cardiovascular: regular rate, rhythm, no edema Abdomen/GI: normal bowel sounds, non tender, soft Back: no CVA tenderness Neurologic/Psych: alert, normal mood/affect, oriented x 3 Skin: normal color, warm/dry, no rash Diagnostics Laboratory Results Results Past 24 Hours Test 08/11/16 10:14 Range/Units White Blood Count 8.27 4.8-10.8 K/uL Red Blood Count 2.69 4.2-5.4 M/uL Hemoglobin 7.2 12.0-16.0 g/dL Hematocrit 23.0 37-47 % Mean Corpuscular Volume 85.5 80-100 fL Mean Corpuscular Hemoglobin 26.8 25-34 pg Mean Corpuscular Hemoglobin Concent 31.3 32-36 g/dl Platelet Count 384 130-400 K/uL Mean Platelet Volume 9.9 7.4-10.4 fL Neutrophils (%) (Auto) 59.6 % Lymphocytes (%) (Auto) 28.3 % Monocytes (%) (Auto) 9.9 % Eosinophils (%) (Auto) 1.9 % Basophils (%) (Auto) 0.2 % Neutrophils # (Auto) 4.92 1.4-6.5 K/uL Lymphocytes # (Auto) 2.34 1.2-3.4 K/uL Monocytes # (Auto) 0.82 0.11-0.59 K/uL Eosinophils # (Auto) 0.16 0-0.5 K/uL Basophils # (Auto) 0.02 0-0.2 K/uL RDW Standard Deviation 41.8 36.4-46.3 fL RDW Coefficient of Variation 13.4 11.5-14.5 % Immature Granulocyte % (Auto) 0.1 % Immature Granulocyte # (Auto) 0.01 0.00-0.02 K/uL Red Blood Cell Morphology Unremarkable Prothrombin Time 11.0 9.0-12.0 SECONDS Prothromb Time International Ratio 1.0 0.9-1.1 Activated Partial Thromboplast Time 29.1 21.0-31.0 SECONDS Partial Thromboplastin Ratio 1.1 Sodium Level 141 136-145 mmol/L Potassium Level 3.9 3.5-5.1 mmol/L Chloride Level 106 98-107 mmol/L Carbon Dioxide Level 27 21-32 mmol/L Anion Gap 8.0 3-11 mmol/L Blood Urea Nitrogen 14 7-18 mg/dl Creatinine 0.54 0.60-1.20 mg/dl Est Creatinine Clear Calc Drug Dose 112.1 ml/min Estimated GFR () 143.7 Estimated GFR (Non- 124.0 BUN/Creatinine Ratio 26.2 10-20 Random Glucose 78 70-99 mg/dl Calcium Level 8.5 8.5-10.1 mg/dl Impression Assessment and Plan Patient is a 31yowf with a symptomatic prolapsing fibroid and many weeks of bleeding leading to anemia. Now the anemia is symptomatic and she is agreeable to a transfusion. Has been typed and crossed for 2 units and we plan to transfuse. She is not currently bleeding at this point. Pelvic exam is deferred so as not to increase bleeding. Plan to transfuse and then d/c home to schedule surgery as an outpatient. r/b/se of blood transfusion reviewed with the patient. Level of Care Women's & Children's Resuscitation Status FULL RESUSCITATION VTE Prophylaxis VTE Risk Assessment Done? Y/N: Yes Risk Level: Low Given or contraindicated: Treatment not indicated Social Service Consult None Apply
[2016-08-11] MEDS ORDERED: IV FLUIDS COMPLETED PRN (13:45)
[2016-08-11] MEDS ORDERED: INFLUENZA VIRUS QUAD VACCINE 0.5 ML SYR IM. ONE (15:15)
[2016-08-11] MEDS ORDERED: INFLUENZA ADMINISTRATION CHARGE ONE (15:15)
[2016-08-11] MEDS ORDERED: BUPR8MIS SL ×2 (16:46)
--- NOTE | 2016-08-11 19:11 | Progress Note ---
Progress Note Patient just finishing with her second unit of blood. She is feeling much better. She is sitting up in bed and eating. She really wants to go home. afvss pe--deferred a/p--anemia from a symptomatic fibroid. Not bleeding today. Feeling much better. If we wait 4 hours to get a f/u h/h it will be 11pm. She would rather not spend the night in the hospital and I don't see a reason to keep her as it is very unlikely that I would be giving her more blood. The patient is agreeable to coming into the office tomorrow and having her cbc drawn. Has appt for a pre-op appt with Dr. Velasco and surgery scheduled for 08/29. Strict precautions were given to return should she start bleeding again or if she would become symptomatic.
--- NOTE | 2016-08-11 19:14 | Discharge Instructions ---
Discharge Instructions Admission Reason for Admission: Symptomatic Anemia, Uterine Fibroid Discharge Discharge Diagnosis / Problem: s/p transfusion of 2 units of blood. Discharge Goals Goal(s): Continuing [employer] WORKER care Activity Recommendations Activity Limitations: resume your previous activity . Instructions / Follow-Up Instructions / Follow-Up To return if heavy bleeding occurs or if she feels symptomatic again as she felt earlier in the day. Call with fever >100.5. Call with nausea, vomiting, shortness of breath or hives/skin lesions. Return to the office tomorrow to the lab on the 4th floor for blood work. Call [phone] overnight if any concerns. Current Hospital Diet Patient's current hospital diet: Regular Diet Discharge Diet Recommended Diet: Regular Diet Pending Studies Studies pending at discharge: no Medical Emergencies . Who to Call and When: Medical Emergencies: If at any time you feel your situation is an emergency, please call 911 immediately. . Non-Emergent Contact Non-Emergency issues call your: Site Administrator Contact Number: [phone] Call Non-Emergent contact if: temperature is above 100.5 . . "Provider Documentation" section prepared by Modesta Arizmendi. VTE Core Measure Inpt VTE Proph given/why not?: Treatment not indicated
--- NOTE | 2016-08-12 01:32 | DISCHARGE SUMMARY ---
ADMIT DIAGNOSES: 1. Symptomatic anemia. 2. History of fibroid prolapsing through the vagina. PROCEDURE: Transfusion of 2 units packed red blood cells. HISTORY OF PRESENT ILLNESS: The patient is a 31-year-old white female, G1, P1, x1, who presented to the ED with symptomatic anemia. The patient is known to our practice with a prolapsing 6 cm fibroid through the cervical os into the vagina. It intermittently bleeds and can be heavy at times. She has been seen by Dr. Velasco and hoping to plan surgery but did not have insurance, so was working on this issue. The patient was seen in the ED on 08/09 because she was unable to void. The patient uses a tampon to reduce, so that she can void. Her hemoglobin at that time was found to be 7.3, which she was asymptomatic and refused transfusion. Since then, the patient has felt more symptomatic with shortness of breath, dizziness, headache, fatigue and she re-presents. She has had no significant increase in her bleeding, just spotting. She is now amenable to transfusion. She is also slightly orthostatic. She is able to void without difficulty now. She notes no fevers, chills, nausea, vomiting, diarrhea or constipation. The patient is on Suboxone currently, maintenance therapy except she is not being seen by clinic because of insurance issues. She has been getting her Suboxone off the street. She notes that she only takes a "small amount.'' She admits to meth, heroin and narcotic use in the past but denies use at this point. For the rest of the patient's detailed history and physical, please see her history and physical note from the admission. ASSESSMENT: The patient is a 31-year-old white female with symptomatic prolapsing fibroid and many weeks of bleeding leading to anemia. That anemia is now symptomatic and she is agreeable to transfusion. HOSPITAL COURSE: The patient was admitted. She was typed and crossed for 2 units and was transfused without difficulty. She was consented prior to transfusion. She has remained afebrile. She is not tachycardic. Her blood pressure is normal. She feels significantly better after the transfusion. She notes that her color is better and she no longer notes shortness of breath or dizziness upon standing. She has been able to go to the bathroom and void without difficulty. She has eaten without nausea and vomiting. Typically, I would get an H\\T\\H 4 hours after transfusion to see what the results were but it is now 7:00 in the evening, the weather is starting to turn poor and the patient would like to go home. Given that she is symptomatically much improved, I see no reason why she cannot go home tonight and return tomorrow to the outpatient lab to have an H\\T\\H drawn. She assures me that she would this. Therefore, she was discharged home once the transfusion was finished and all vitals were taken. She will return tomorrow for an H\\T\\H. She is now scheduled for surgery on August 29 and has a preoperative appointment on August 27. She was given information on the time and date of these appointments. She was instructed to call the on-call doctor if she has a temperature greater than 100.5, nausea and vomiting, hives and skin changes, shortness of breath, chest pain, return of any symptomatic symptoms or increase of her vaginal bleeding. She agrees to these conditions, will return to my office for an H\\T\\H and is discharged.
[2016-08-12] MEDS ORDERED: ASPIRIN 325 MG ECTAB PO SCH (09:00)
== END 2016-08-11 20:00 | disposition home or self-care (01) ==
LOC: ENRESERVTM → ENRESERVDT → C.EDB 09:39 → C.MS4N 11:18 → EDBEDREQ 12:17
PROVIDERS: ADMIT Obstetrics & Gynecology; ATTEND Obstetrics & Gynecology
DX: D50.0 Iron deficiency anemia secondary to blood loss (chronic) (principal); N93.9 Abnormal uterine and vaginal bleeding, unspecified; D25.9 Leiomyoma of uterus, unspecified; N81.4 Uterovaginal prolapse, unspecified; F17.200 Nicotine dependence, unspecified, uncomplicated; F11.20 Opioid dependence, uncomplicated; Z79.899 Other long term (current) drug therapy; Z86.14 Personal history of Methicillin resistant Staphylococcus aureus infection; Z83.3 Family history of diabetes mellitus

== ENCOUNTER → 2016-08-12 | Outpatient (CLI) | payer SELFPAY ==
[~2016-08-12] MED LIST changes: +BUPR8MIS SL; +BUPR8SUB19 SL; +FRRS300 PO; +MEDR5TAB PO; +OXYC-57 PO; +SULF800T23 PO
[2016-08-12 12:19] LABS: HEMATOCRIT 30.2 % (37-47)
== END | disposition home or self-care (01) ==
LOC: C.LAB1850 11:20
PROVIDERS: ATTEND Obstetrics & Gynecology
DX: N93.8 Other specified abnormal uterine and vaginal bleeding (principal)

== ENCOUNTER 2016-08-22 10:42 | Emergency (ER) | payer SELFPAY ==
[~2016-08-22] VITALS: Ht 149.9 cm; Wt 53.2 kg
[~2016-08-22 10:42] MED LIST changes: -BUPR8SUB19 SL; -FRRS300 PO; -IBUP-1050 PO; -MEDR5TAB PO; -OXYC-57 PO; -SULF800T23 PO
[2016-08-22 10:47] VITALS: TEMP 36.9; Ht 149.9 cm; Wt 53.2 kg
[2016-08-22] MEDS ORDERED: SODIUM CHLORIDE 0.9% 1000ML 1,000 ML IV STA (11:06)
[2016-08-22] MEDS ORDERED: IBUP-1050 PO (11:12)
[2016-08-22 11:26] VITALS: O2SAT 95
--- NOTE | 2016-08-22 11:28 | EMERGENCY ROOM VISIT NOTE ---
History First contact with patient: 10:57 Chief Complaint: VAGINAL BLEEDING Stated Complaint: VAGINAL BLEEDING History of Present Illness The patient is a 31 year old female who presents to the Emergency Room via private vehicle with complaints of "vaginal bleeding". Patient states that she was recently diagnosed with a prolapsed fibroid tumor which she is to have removed on August [address] Velasco. She states she's been here recently in the past for blood transfusion. Her most recent episode of vaginal bleeding began this morning at 1:30 AM when she began passing large clots of blood from the vagina. She states that she is using an ultrasound as tampon every 15 minutes due to the amount of bleeding. She states this is the worst vaginal bleeding she has had to date. She called Dr. Walton's office this morning and the nurse told her to come here today to the emergency department. She states this is all blood without any other discoloration or discharge. There is only pain with insertion of the tampon. She does have associated dizziness as well as chills. She feels like there is a pulse inside her head. She denies any abdominal pain, chest pain, shortness of breath or fevers. Review of Systems A complete 10-point Review of Systems was discussed with the patient, with pertinent positives and negatives listed in the History of Present Illness. All remaining Review of Systems questions can be considered negative unless otherwise specified. Past Medical/Surgical History Medical Problems: (1) Kidney stones (2) Methicillin resistant Staphylococcus aureus infection (3) Uterine fibroid Surgical Problems: (1) History of lithotripsy Family History Diabetes mellitus Social History Smoking Status: Current Every Day Smoker Alcohol Use: none Drug Use: none Marital Status: single Housing Status: lives with family Occupation Status: employed Current/Historical Medications Scheduled Buprenorphine Hcl-Naloxone Hcl (Suboxone 8-2 Mg), 1 EA SL DAILY Scheduled PRN Zmzozpx-Duyoobhfupqsz-Epxsjhde (Excedrin Migraine), 1 TAB PO DAILY PRN for Headache Miscellaneous Medications Ibuprofen (Advil), 200 MG PO Allergies Coded Allergies: No Known Allergies (Unverified , 08/22/16) Physical Exam Vital Signs Date Time Temp Pulse Resp B/P Pulse Ox O2 Delivery O2 Flow Rate FiO2 08/22/16 13:36 90 18 103/77 99 Room Air 08/22/16 13:06 73 08/22/16 12:13 75 18 102/65 100 Room Air 08/22/16 11:37 82 18 122/75 96 Room Air 08/22/16 11:26 95 Room Air 08/22/16 11:16 83 08/22/16 10:47 36.9 98 18 127/88 98 Room Air Physical Exam VITAL SIGNS - Vital signs and nursing notes were reviewed. Patient is afebrile , she is normotensive at 127/88, she is not tachycardic and saturating well on room air 98%. Vital signs are stable. GENERAL -31-year-old female appearing her stated age who is in no acute distress. Communicates well with provider and answers questions appropriately. SKIN - Without rashes. No petechial rashes on the skin. HEAD - NC/AT. EYES - PERRL with EOMI bilaterally. Sclera anicteric. Palpebral conjunctiva pink and moist with no injection noted. EARS - No deformities of external structures noted on gross examination bilaterally. NOSE - Midline and without cyanosis. No epistaxis or purulent drainage noted. Septum midline without deviation or septal hematoma noted. MOUTH/OROPHARYNX - Without perioral cyanosis. NECK - Neck with FROM. Supple to palpation. No meningeal signs. LUNGS - Chest wall symmetric without accessory muscle use, intercostals retractions, or central cyanosis. Normal vesicular breath sounds CTA B/L. No wheezes, rales, or rhonchi appreciated. CARDIAC - RRR with S1/S2. No murmur, rubs, or gallops appreciated. ABDOMEN - Abdominal contour without pulsations or visible masses. BS normoactive all four quadrants. No tenderness, palpable masses, hepatosplenomegaly, or ascites noted. EXTREMITIES - No clubbing or peripheral cyanosis. No pretibial edema present. + 5/5 strength noted in UE/LE bilaterally. NEUROLOGIC - Cranial nerves II through XII grossly intact. Sensory intact to light touch throughout. PSYCH - Pt is very pleasant and interacts well with examiner. PELVIC EXAM: The patient's nurse was present to assist with exam, and mechanical unit repairer. The patient was educated upon what her pelvic exam was, and she was offered to decline. Patient did not decline. I explained to her the pelvic exam. The patient was prepared and positioned for best examination. Exam began at 11:30AM Patient was positioned by nurse. The external genitalia, mons pubis, labia majora, labia minora, clitoris, urethral meatus, Bartholin's glands, perineum, and anus were within normal limits. The speculum was held then a 45 angle and properly lubricated, the speculum was inserted without difficulty to the depth of the cervix. Speculum was then open slowly. Cervix was identified. There was evidence of blood in the vaginal vault that was beginning to slowly come out of the vagina. No active hemorrhaging noted. The discharge was consistent with blood. No green or yellow discharge identified. Patient did not experience any discomfort. The exam was concluded, the nurse felt the patient back to her bed. Exam was tolerated well and was done to exclude active hemorrhage. Medical Decision & Procedures Laboratory Results 08/22/16 11:17 Red Blood Count 3.65, Mean Corpuscular Volume 83.8, Mean Corpuscular Hemoglobin 27.7, Mean Corpuscular Hemoglobin Concent 33.0, Mean Platelet Volume 10.1, Neutrophils (%) (Auto) 64.6, Lymphocytes (%) (Auto) 24.2, Monocytes (%) (Auto) 9.2, Eosinophils (%) (Auto) 1.6, Basophils (%) (Auto) 0.3, Neutrophils # (Auto) 5.63, Lymphocytes # (Auto) 2.11, Monocytes # (Auto) 0.80, Eosinophils # (Auto) 0.14, Basophils # (Auto) 0.03 08/22/16 11:17 Test 08/22/16 11:17 08/22/16 11:21 White Blood Count 8.72 K/uL (4.8-10.8) Red Blood Count 3.65 M/uL (4.2-5.4) Hemoglobin 10.1 g/dL (12.0-16.0) Hematocrit 30.6 % (37-47) Mean Corpuscular Volume 83.8 fL (80-100) Mean Corpuscular Hemoglobin 27.7 pg (25-34) Mean Corpuscular Hemoglobin Concent 33.0 g/dl (32-36) Platelet Count 322 K/uL (130-400) Mean Platelet Volume 10.1 fL (7.4-10.4) Neutrophils (%) (Auto) 64.6 % Lymphocytes (%) (Auto) 24.2 % Monocytes (%) (Auto) 9.2 % Eosinophils (%) (Auto) 1.6 % Basophils (%) (Auto) 0.3 % Neutrophils # (Auto) 5.63 K/uL (1.4-6.5) Lymphocytes # (Auto) 2.11 K/uL (1.2-3.4) Monocytes # (Auto) 0.80 K/uL (0.11-0.59) Eosinophils # (Auto) 0.14 K/uL (0-0.5) Basophils # (Auto) 0.03 K/uL (0-0.2) RDW Standard Deviation 41.2 fL (36.4-46.3) RDW Coefficient of Variation 13.5 % (11.5-14.5) Immature Granulocyte % (Auto) 0.1 % Immature Granulocyte # (Auto) 0.01 K/uL (0.00-0.02) Prothrombin Time 11.6 SECONDS (9.0-12.0) Prothromb Time International Ratio 1.1 (0.9-1.1) Activated Partial Thromboplast Time 32.6 SECONDS (21.0-31.0) Partial Thromboplastin Ratio 1.3 Est Creatinine Clear Calc Drug Dose 102.8 ml/min Estimated GFR () 140.4 Estimated GFR (Non- 121.1 BUN/Creatinine Ratio 27.1 (10-20) Calcium Level 8.7 mg/dl (8.5-10.1) Total Bilirubin 0.2 mg/dl (0.2-1) Aspartate Amino Transf (AST/SGOT) 5 U/L (15-37) Alanine Aminotransferase (ALT/SGPT) 13 U/L (12-78) Alkaline Phosphatase 78 U/L (45-117) Total Protein 7.3 gm/dl (6.4-8.2) Albumin 3.2 gm/dl (3.4-5.0) Globulin 4.1 gm/dl (2.5-4.0) Albumin/Globulin Ratio 0.8 (0.9-2) Human Chorionic Gonadotropin, Qual NEG (NEG) Bedside Hemoglobin 10.2 g/dl (12.0-16.0) Bedside Hematocrit 30 % (37-47) Bedside Sodium 139 mEq/L (135-144) Bedside Potassium 3.9 mEq/L (3.3-5.0) Bedside Chloride 105 mEq/L (101-112) Bedside Total CO2 21 mEq/l (24-31) Anion Gap 18.0 mmol/L (16-25) Bedside Blood Urea Nitrogen 16 mg/dl (7-18) Bedside Creatinine 0.5 mg/dl (0.6-1.3) Bedside Glucose (other) 101 mg/dl (70-99) Bedside Ionized Calcium (Thomas) 1.17 mmol/l (1.12-1.32) Medications Administered Medications (Trade) Dose Ordered Sig/Juwan Route Start Time Stop Time Status Last Admin Dose Admin Sodium Chloride (Nss 1000ml) 1,000 ml @ 999 mls/hr Q1H1M STAT IV 08/22/16 11:06 08/22/16 12:06 DC 08/22/16 11:28 999 MLS/HR Medical Decision Patient was seen and evaluated as above. After obtaining a thorough history and physical examination IV access is obtained and a CBC, CMP, coagulation studies, type and screen, a liter of normal saline, i-STAT, serum brings test as well as type and cross were obtained secondary to subjective and objective examination findings. Patient was noted to have a low hemoglobin and hematocrit in the past 2 portion needed to be transfused recently therefore the type and cross began. This was for 2 units. Hold Packed blood cells. The patient stated that she had been passing cat-sized clots of blood from her vagina since 1:30 AM. Because she had gone through a tampon every 15 minutes that she said was supersized I was concerned for active extravasation or hemorrhage. Pelvic exam was quickly initiated. She consented for this. There is no active hemorrhage but slight bleeding in the vaginal vault noted. This appears stable. Her vital signs are stable. I did discuss the case with Dr. Trivedi, and ROTOR COIL TAPER who was familiar with the patient's case. The phone call took place around 12:30 PM and the case was thoroughly discussed. She was very kind, and came down to personally evaluate the patient. Patient seemed very happy with this. It was identified that the patient will keep her appointment on the with Dr. Elam, for her preop visit with her appointment for surgery scheduled for the and will be discharged home from the emergency department today. Patient is to return if any worsening of her symptoms and verbalizes understanding. She was educated upon worrisome symptoms in which to return, had questions answered prior to discharge and was discharged home in good condition. No leukocytosis but anemia noted hemoglobin of 10.1. Slight increase of the APTT. CMP revealed a slight elevation in chloride, decreased creatinine private , but no evidence of emergent kidney or liver failure. She was negative for . Patient's vital signs were stable as were her H&H. In evaluation treatment this patient the following differential diagnoses were entertained: Hemorrhage, anemia, among others. Impression Primary Impression: Abnormal vaginal bleeding Additional Impression: Anemia Departure Information Dispostion Home / Self-Care Condition GOOD Referrals No Doctor, Assigned (PCP) Patient Instructions My [facility] Additional Instructions You were seen in the emergency Department for vaginal bleeding. Hemoglobin and vital signs today are stable. Please have basic labs repeated with your family doctor. You were seen by Dr. Soriano here today. Please keep your scheduled appointment preoperatively with Dr. Velasco. Please return with any worsening of your symptoms or continued bleeding. Please return to the emergency department with any new/concerning symptoms. Problem Qualifiers Additional Impression:
[2016-08-22 11:32] LABS: HEMATOCRIT 30.6 % (37-47); MEAN CELL VOLUME 83.8 fL (80-100); MEAN CORPUSCULAR HEMOGLOBIN 27.7 pg (25-34); MEAN PLATELET VOLUME 10.1 fL (7.4-10.4); PLATELET COUNT 322 K/uL (130-400); RED BLOOD COUNT 3.65 M/uL (4.2-5.4); WHITE BLOOD COUNT 8.72 K/uL (4.8-10.8)
[2016-08-22 11:38] LABS: ISTAT CREATININE 0.5 mg/dl (0.6-1.3); ISTAT HEMOGLOBIN 10.2 g/dl (12.0-16.0); ISTAT IONIZED CALCIUM 1.17 mmol/l (1.12-1.32)
[2016-08-22 11:41] LABS: INR 1.1 (0.9-1.1); PARTIAL THROMBOPLASTIN RATIO 1.3; PROTHROMBIN TIME (PATIENT) 11.6 SECONDS (9.0-12.0)
[2016-08-22 11:52] LABS: BUN/CREATININE RATIO 27.1 (10-20); CALCIUM 8.7 mg/dl (8.5-10.1); CREATININE 0.58 mg/dl (0.60-1.20); POTASSIUM 3.9 mmol/L (3.5-5.1)
[2016-08-22 11:55] LABS: ALB/GLOB RATIO 0.8 (0.9-2)
[2016-08-22 11:56] LABS: BASO % 0.3 %; BASO ABS # 0.03 K/uL (0-0.2); COMPLETE YES; EOS % 1.6 %; IG% 0.1 %; LYMPH % 24.2 %; LYMPH ABS # 2.11 K/uL (1.2-3.4); MONO % 9.2 %; NEUT % 64.6 %
[2016-08-22 11:57] LABS: PREG INTERNAL NEGATIVE QC NEG CLEAR BACKGROUND; PREG INTERNAL POSITIVE QC POS CONTROL LINE
[2016-08-22 13:36] VITALS: BP 103/77; PULSE 90; O2SAT 99
--- NOTE | 2016-08-23 16:46 | Medical Consult ---
Consultation Note Consultation Note OBGYN Consult Reason for consult: vaginal bleeding, known cervical fibroid Physician ordering consult: Valdo Garza PA-C CC: vaginal bleeding HPI: Patient is a 31yo who presented to the emergency department today with complaint of vaginal bleeding. She notes that she had heavy bleeding overnight, and passed some large clots. She notes that the bleeding has slowed a bit since she came to the ER. She has a known fibroid protruding into the vaginal canal, and saw Dr Velasco in the office 07/28/16. His plan is to surgically remove mass next week. She states she felt dizzy and weak at home this morning and was concerned that she was losing too much blood, so she came to the ER. She underwent transfusion 2 weeks ago due to hgb 7.3, and discharge hgb after 2u PRBC was 9.9. At the time of my evaluation in the ER, she was asymptomatic. PMH: opioid use, kidney stones PSH: lithotripsy Soc: current smoker, denies drug/ETOH use. Fam: noncontributory Allergies: NKDA Meds: suboxone ROS: all systems reviewed, negative except as above. Last Vital Signs Documentation Date Time Temp Pulse Resp B/P Pulse Ox O2 Delivery O2 Flow Rate FiO2 08/22/16 13:36 90 18 103/77 99 Room Air 08/22/16 10:47 36.9 Gen: AAOx3 NAD CV: RRR S1S2 no MGR L:CTAB Abd: soft, NTTP, no palpable masses, no rebound/guarding Ext: no edema, no calf tenderness Pelvic exam: performed by Valdo Garza PA-C, minimal vaginal bleeding. No clots. 08/22/16 11:17 Red Blood Count 3.65, Mean Corpuscular Volume 83.8, Mean Corpuscular Hemoglobin 27.7, Mean Corpuscular Hemoglobin Concent 33.0, Mean Platelet Volume 10.1, Neutrophils (%) (Auto) 64.6, Lymphocytes (%) (Auto) 24.2, Monocytes (%) (Auto) 9.2, Eosinophils (%) (Auto) 1.6, Basophils (%) (Auto) 0.3, Neutrophils # (Auto) 5.63, Lymphocytes # (Auto) 2.11, Monocytes # (Auto) 0.80, Eosinophils # (Auto) 0.14, Basophils # (Auto) 0.03 08/22/16 11:17 Test 08/22/16 11:17 08/22/16 11:21 White Blood Count 8.72 K/uL (4.8-10.8) Red Blood Count 3.65 M/uL (4.2-5.4) Hemoglobin 10.1 g/dL (12.0-16.0) Hematocrit 30.6 % (37-47) Mean Corpuscular Volume 83.8 fL (80-100) Mean Corpuscular Hemoglobin 27.7 pg (25-34) Mean Corpuscular Hemoglobin Concent 33.0 g/dl (32-36) Platelet Count 322 K/uL (130-400) Mean Platelet Volume 10.1 fL (7.4-10.4) Neutrophils (%) (Auto) 64.6 % Lymphocytes (%) (Auto) 24.2 % Monocytes (%) (Auto) 9.2 % Eosinophils (%) (Auto) 1.6 % Basophils (%) (Auto) 0.3 % Neutrophils # (Auto) 5.63 K/uL (1.4-6.5) Lymphocytes # (Auto) 2.11 K/uL (1.2-3.4) Monocytes # (Auto) 0.80 K/uL (0.11-0.59) Eosinophils # (Auto) 0.14 K/uL (0-0.5) Basophils # (Auto) 0.03 K/uL (0-0.2) RDW Standard Deviation 41.2 fL (36.4-46.3) RDW Coefficient of Variation 13.5 % (11.5-14.5) Immature Granulocyte % (Auto) 0.1 % Immature Granulocyte # (Auto) 0.01 K/uL (0.00-0.02) Prothrombin Time 11.6 SECONDS (9.0-12.0) Prothromb Time International Ratio 1.1 (0.9-1.1) Activated Partial Thromboplast Time 32.6 SECONDS (21.0-31.0) Partial Thromboplastin Ratio 1.3 Anion Gap 10.0 mmol/L (3-11) 18.0 mmol/L (16-25) Est Creatinine Clear Calc Drug Dose 102.8 ml/min Estimated GFR () 140.4 Estimated GFR (Non- 121.1 BUN/Creatinine Ratio 27.1 (10-20) Calcium Level 8.7 mg/dl (8.5-10.1) Total Bilirubin 0.2 mg/dl (0.2-1) Aspartate Amino Transf (AST/SGOT) 5 U/L (15-37) Alanine Aminotransferase (ALT/SGPT) 13 U/L (12-78) Alkaline Phosphatase 78 U/L (45-117) Total Protein 7.3 gm/dl (6.4-8.2) Albumin 3.2 gm/dl (3.4-5.0) Globulin 4.1 gm/dl (2.5-4.0) Albumin/Globulin Ratio 0.8 (0.9-2) Human Chorionic Gonadotropin, Qual NEG (NEG) Bedside Hemoglobin 10.2 g/dl (12.0-16.0) Bedside Hematocrit 30 % (37-47) Bedside Sodium 139 mEq/L (135-144) Bedside Potassium 3.9 mEq/L (3.3-5.0) Bedside Chloride 105 mEq/L (101-112) Bedside Total CO2 21 mEq/l (24-31) Bedside Blood Urea Nitrogen 16 mg/dl (7-18) Bedside Creatinine 0.5 mg/dl (0.6-1.3) Bedside Glucose (other) 101 mg/dl (70-99) Bedside Ionized Calcium (Thomas) 1.17 mmol/l (1.12-1.32) Bladder ultrasound performed at bedside by Dr Oviedo: 43cc residual A/P 1. 31yo with fibroid protrusion into vagina - Patient has scheduled surgery next week for treatment of this problem. At this time, she is stable and does not require emergent surgery. She has stable vitals and is asymptomatic. She is having minimal bleeding on exam. Her hemoglobin has been stable since transfusion 2 weeks ago. Recommend that patient followup as scheduled in the office for her pre- operative visit, and undergo surgery as scheduled with Dr Velasco in 1 week.
== END 2016-08-22 13:38 | disposition home or self-care (01) ==
LOC: C.EDB 10:43
DX: N93.9 Abnormal uterine and vaginal bleeding, unspecified (principal); D64.9 Anemia, unspecified; D25.9 Leiomyoma of uterus, unspecified; F17.200 Nicotine dependence, unspecified, uncomplicated

== ENCOUNTER 2016-08-26 08:47 | Inpatient (IN) | payer SELFPAY ==
[2016-08-20 11:51] VITALS: BMI 24.0
[~2016-08-26] VITALS: Ht 149.9 cm; Wt 54.7 kg
[2016-08-26] VITALS (22 sets, daily range): BP systolic 86–121; BP diastolic 56–82; PULSE 71–91; TEMP 36.5–37.5; O2SAT 97–100; Ht 149.9 cm; Wt 54.7 kg
[~2016-08-26 08:47] MED LIST changes: +IBUP-1050 PO
[2016-08-26] MEDS ORDERED: SODIUM CHLORIDE 0.9% 1000ML 1,000 ML IV STA (09:17)
[2016-08-26 09:48] LABS: HEMATOCRIT 15.3 % (37-47); MEAN CELL VOLUME 84.5 fL (80-100); MEAN CORPUSCULAR HEMOGLOBIN 27.6 pg (25-34); MEAN CORPUSCULAR HGB CONC 32.7 g/dl (32-36); MEAN PLATELET VOLUME 9.7 fL (7.4-10.4); PLATELET COUNT 269 K/uL (130-400); RED BLOOD COUNT 1.81 M/uL (4.2-5.4); WHITE BLOOD COUNT 7.59 K/uL (4.8-10.8)
[2016-08-26 09:50] LABS: BUN/CREATININE RATIO 18.6 (10-20); CALCIUM 7.9 mg/dl (8.5-10.1); CREATININE 0.56 mg/dl (0.60-1.20); POTASSIUM 3.6 mmol/L (3.5-5.1)
--- NOTE | 2016-08-26 15:06 | HISTORY & PHYSICAL EXAMINATION ---
DATE OF ADMISSION: 08/26/2016 PRINCIPAL DIAGNOSES: Anemia because of acute blood loss and prolapsing cervical fibroid. HISTORY OF PRESENT ILLNESS: The patient is a 31-year-old 1, p 1-0-0-1 white female who has had a known history of a prolapsing fibroid that is prolapsing through the cervix noted by Dr. Watson on office visit on 07/28/2016. She has been having significant bleeding over time, at that point that she has become anemic on multiple occasions. On the 15 of August, she was seen in the Emergency Room, had a hemoglobin of 10 and was sent home with further instructions to be seen for followup. She then reappeared in the Emergency Room on August 22. She received 2 units because she was feeling weak and short of breath. Hemoglobin was 7.3. She continued to have bleeding and presented to the Emergency Room once again on the morning of July 26. On her admission here, she was lightheaded, dizzy, and pale. Hemoglobin is 5.3. So far, she has received 2 units of blood. She was originally scheduled for surgery on the for removal of this prolapsed fibroid; however, this will be removed tomorrow morning when she has been transfused with several more units. The patient understands the plan and is willing to proceed. She understands the risks of procedure as well and all questions have been answered to her satisfaction. PAST MEDICAL HISTORY: Significant for prior opioid use, currently taking Suboxone. She also has a history of kidney stones. PAST SURGICAL HISTORY: She has had lithotripsy done for the kidney stones. SOCIAL HISTORY: She does smoke cigarettes, but denies any other drug or alcohol use beside the Suboxone. ALLERGIES: She has no known drug allergies. REVIEW OF SYSTEMS: Otherwise is all within normal limits. PHYSICAL EXAMINATION: VITAL SIGNS: She is afebrile. Vital signs are stable at this time. HEART: Regular rate and rhythm. No murmurs or gallops. LUNGS: Clear to auscultation. ABDOMEN: Soft, flat and nontender. PELVIC: Deferred since that was done in the Emergency Room earlier today. EXTREMITIES: Without calf tenderness or swelling. ASSESSMENT: A 31-year-old with known fibroid prolapsing through the cervix, approximately 6 cm in size based on Dr. Velasco's first evaluation. She is now going to be transfused at least 4 units of blood packed cells and planning surgical removal of the fibroid in the operating room tomorrow. Consents have been signed and again, all questions have been answered. Please see the orders for further directions.
--- NOTE | 2016-08-26 16:58 | EMERGENCY ROOM VISIT NOTE ---
History First contact with patient: :06 Chief Complaint: OTHER COMPLAINT Stated Complaint: ANEMIA, FIBROID History of Present Illness The patient is a 31 year old female who presents to the Emergency Room via private vehicle with complaints of "anemia, fibroid". Patient states "I think I need blood. My hemoglobin was okay on Thursday, but I was still bleeding really bad vaginally. I feel real weak. I received 2 units of blood the last time it was low". The patient states that her symptoms are identical to when she was here in the past on Thursday. She has been bleeding continuously. She again has the mass noted in the uterus necessitating surgery this Thursday. She' s been bleeding for roughly 3 months. Today she does have a headache, nausea, racing heart, dizziness and weakness. Review of Systems A complete 10-point Review of Systems was discussed with the patient, with pertinent positives and negatives listed in the History of Present Illness. All remaining Review of Systems questions can be considered negative unless otherwise specified. Past Medical/Surgical History Medical Problems: (1) Fibroid (bleeding) (uterine) (2) Kidney stones (3) Methicillin resistant Staphylococcus aureus infection (4) Uterine fibroid Surgical Problems: (1) History of lithotripsy Family History Diabetes mellitus Social History Smoking Status: Current Every Day Smoker Alcohol Use: none Drug Use: none Marital Status: single Housing Status: lives with family Occupation Status: employed Current/Historical Medications Scheduled Buprenorphine Hcl-Naloxone Hcl (Suboxone 8-2 Mg), 1 EA SL DAILY Scheduled PRN Sqvdutm-Oixyilkkbxllx-Rttnmyyu (Excedrin Migraine), 1 TAB PO DAILY PRN for Headache Allergies Coded Allergies: No Known Allergies (Unverified , 08/26/16) Physical Exam Vital Signs Date Time Temp Pulse Resp B/P Pulse Ox O2 Delivery O2 Flow Rate FiO2 08/26/16 14:00 Room Air 08/26/16 14:00 37.1 76 16 109/67 Room Air 08/26/16 13:59 08/26/16 13:45 37.1 77 16 106/70 100 08/26/16 13:17 36.9 88 16 100/61 99 08/26/16 13:03 36.7 79 16 98/63 99 08/26/16 13:03 82 08/26/16 12:46 36.9 79 16 95/63 99 08/26/16 12:42 36.9 79 16 95/69 100 08/26/16 12:14 36.8 79 16 99/61 100 08/26/16 12:00 89 18 102/63 100 Room Air 08/26/16 11:44 37.0 85 12 86/63 100 08/26/16 11:30 36.7 80 14 96/66 100 08/26/16 09:42 86 16 100/63 100 Room Air 08/26/16 09:10 97 08/26/16 08:49 36.8 110 18 113/73 100 Room Air Pain Rating (0-10): 0 Physical Exam VITAL SIGNS - Vital signs and nursing notes were reviewed. Patient is afebrile , normotensive, tachycardic at a rate of 110 bpm and is saturating well on room air at 100%. GENERAL -31-year-old female appearing her stated age who is in no acute distress. She is very pale in appearance. Communicates well with provider and answers questions appropriately. SKIN - Without rashes. HEAD - NC/AT. EYES - Sclera anicteric. Palpebral conjunctiva pink and moist with no injection noted. EARS - No deformities of external structures noted on gross examination bilaterally. NOSE - Midline and without cyanosis. No epistaxis or purulent drainage noted. Septum midline without deviation or septal hematoma noted. MOUTH/OROPHARYNX - Without perioral cyanosis. NECK - Neck with FROM. LUNGS - Chest wall symmetric without accessory muscle use, intercostals retractions, or central cyanosis. Normal vesicular breath sounds CTA B/L. No wheezes, rales, or rhonchi appreciated. CARDIAC - RRR with S1/S2. No murmur, rubs, or gallops appreciated. Medical Decision & Procedures Laboratory Results 08/26/16 09:15 Test 08/26/16 09:15 Anion Gap 10.0 mmol/L (3-11) Est Creatinine Clear Calc Drug Dose 107.9 ml/min Estimated GFR () 142.0 Estimated GFR (Non- 122.5 BUN/Creatinine Ratio 18.6 (10-20) Calcium Level 7.9 mg/dl (8.5-10.1) Medications Administered Medications (Trade) Dose Ordered Sig/Juwan Route Start Time Stop Time Status Last Admin Dose Admin Sodium Chloride (Nss 1000ml) 1,000 ml @ 999 mls/hr Q1H1M STAT IV 08/26/16 09:17 08/26/16 10:17 DC 08/26/16 09:42 999 MLS/HR Medical Decision Patient was seen and evaluated as above. I was the last ER provider to care for the patient which was on Thursday and I am familiar with the patient's case. Her hemoglobin was stable on Thursday. She was instructed to return with worsening of her symptoms. She has had persistent bleeding since then. The above workup was obtained. Hemoglobin was noted to be 5.0. Hematocrit was 15.3. Red blood cell count was 1.8. Because of this finding she was typed and crossed for 2 units. Chloride was high at 110, creatinine was low at 0.56. Serum negative. Case was discussed with my attending and the decision was made to contact the on-call ENGINE EMISSION TECHNICIAN. I spoke with Dr. Carvajal, and we initially discussed potentially starting the patient on Aygestin however my attending and I felt that she may also benefit from inpatient management. When speaking with Dr. Carvajal, it was decided to contact the medicine team for admission who stated they felt this would be best managed by ENGINE EMISSION TECHNICIAN. We then spoke with Dr. Carvajal again who agreed to admit the patient. I do believe this is best for the patient given the amount of bleeding she has been experiencing from the vagina. She deferred a pelvic exam today and notes there was no change from I performed a 1 on Thursday. She was transfused 2 units. She was then taken to the fourth floor for further evaluation and management with potential surgery for tomorrow. Please refer to further documentation regarding her stay. In evaluation treatment of this patient following differential diagnoses were entertained: Anemia, vaginal hemorrhage, uterine fibroids, among others. Impression Primary Impression: Abnormal vaginal bleeding Additional Impression: Anemia Departure Information Dispostion Admitted as an inpatient Condition FAIR Referrals No Doctor, Assigned (PCP) Forms WORK / SCHOOL INSTRUCTIONS, HOME CARE DOCUMENTATION FORM, IMPORTANT VISIT INFORMATION Patient Instructions My [facility] Problem Qualifiers
--- NOTE | 2016-08-26 18:43 | Anesthesiology Progress Note ---
Anesthesia Progress Note Date of Service Aug 26, 2016. Progress Notes The patient is a 31 y/o female scheduled for D+C and fibroid removal. She presented to the ER today with a hgb of 5.3. due to bleeding from her fibroid. She had previously been transfused on 08/22/16 2 units PRBC. Other PMH includes remote hx of opioid abuse for which she is now on Suboxone, smoking, and GERD. The patient gets emotional when waking from surgery but otherwise has no problems with anesthesia. The patient is receiving four units of PRBC. On exam the patient has a MP 2 airway with good neck extension. She has a pierced lip and is missing her upper teeth. Lungs were clear and heart was RRR. The patient was consented for general anesthesia. She was counseled to remain NPO after midnight except for sips of water with pills. The patient has an H/H pending as well as serum HCG.
[2016-08-26] MEDS ORDERED: NICOTINE 21 MG/24 HR TDSY TD ONE (20:15)
[2016-08-26 21:36] LABS: HEMATOCRIT 26.6 % (37-47); MEAN CELL VOLUME 83.4 fL (80-100); MEAN CORPUSCULAR HEMOGLOBIN 27.9 pg (25-34); MEAN CORPUSCULAR HGB CONC 33.5 g/dl (32-36); PLATELET COUNT 233 K/uL (130-400); RED BLOOD COUNT 3.19 M/uL (4.2-5.4); WHITE BLOOD COUNT 10.04 K/uL (4.8-10.8)
[2016-08-26 21:44] LABS: PREG INTERNAL NEGATIVE QC NEG CLEAR BACKGROUND; PREG INTERNAL POSITIVE QC POS CONTROL LINE
[2016-08-26 21:53] LABS: BASO % 0.2 %; BASO ABS # 0.02 K/uL (0-0.2); COMPLETE YES; ECHINOCYTES 1+; EOS % 1.3 %; IG% 0.2 %; LYMPH % 27.2 %; LYMPH ABS # 2.73 K/uL (1.2-3.4); MONO % 10.8 %; NEUT % 60.3 %
[2016-08-27] VITALS (9 sets, daily range): BP systolic 82–116; BP diastolic 49–75; PULSE 43–82; TEMP 36.2–36.8; O2SAT 95–100
[2016-08-27] MEDS ORDERED: CEFAZOLIN 2000 MG/60 ML D5W IV SCH (06:00)
[2016-08-27] MEDS ORDERED: CEFAZOLIN IV 2,000 MG in DEXTROSE 5% 50ML 50 ML IV SCH (06:00)
--- NOTE | 2016-08-27 07:27 | OB/GYN Progress Note ---
ORDER FILLER Progress Note Date of Service Aug 27, 2016. Subjective conversation w/ patient, physical exam Ambulation: ambulating normally Voiding: no voiding problems Diet Tolerance: NPO Objective Vital Signs Date Time Temp Pulse Resp B/P Pulse Ox O2 Delivery O2 Flow Rate FiO2 08/27/16 04:40 36.7 82 14 101/67 97 Room Air 08/26/16 23:15 36.9 71 16 95/56 98 Room Air 08/26/16 23:15 98 Room Air 08/26/16 19:30 36.7 72 18 110/77 97 Room Air 08/26/16 18:53 36.7 84 16 107/69 100 08/26/16 18:20 36.8 76 16 116/76 100 08/26/16 17:55 36.5 91 18 121/82 100 08/26/16 17:55 36.5 91 18 121/82 100 08/26/16 17:35 36.6 77 16 120/75 100 08/26/16 17:17 37.1 75 18 107/77 99 08/26/16 16:55 37.3 82 16 109/72 99 08/26/16 16:55 37.3 82 16 109/72 99 08/26/16 15:55 37.4 76 20 102/68 100 08/26/16 15:55 37.4 76 20 102/68 100 08/26/16 15:55 37.4 76 20 102/68 100 08/26/16 15:25 37.1 76 16 100/65 100 08/26/16 15:15 37.5 89 16 101/68 100 08/26/16 14:50 36.9 88 18 112/78 100 08/26/16 14:33 37.4 74 16 106/71 100 08/26/16 14:00 Room Air 08/26/16 14:00 37.1 76 16 109/67 Room Air 08/26/16 13:59 08/26/16 13:45 37.1 77 16 106/70 100 08/26/16 13:17 36.9 88 16 100/61 99 08/26/16 13:03 36.7 79 16 98/63 99 08/26/16 13:03 82 08/26/16 12:46 36.9 79 16 95/63 99 08/26/16 12:42 36.9 79 16 95/69 100 08/26/16 12:14 36.8 79 16 99/61 100 08/26/16 12:00 89 18 102/63 100 Room Air 08/26/16 11:44 37.0 85 12 86/63 100 08/26/16 11:30 36.7 80 14 96/66 100 08/26/16 09:42 86 16 100/63 100 Room Air 08/26/16 09:10 97 08/26/16 08:49 36.8 110 18 113/73 100 Room Air Physical Exam General Appearance: WELL-APPEARING, NO APPARENT DISTRESS Respiratory/Chest: lungs clear Cardiovascular: regular rate, rhythm Fundus: Firm (Bimanual examination shows a anterior uterus with a prolapsing cervical fibroid approximately 6 centimeters in diameter. Cervical os is dilated approximately 3 centimeters.) Extremities: no calf tenderness Laboratory Results Last 24 Hours Test 08/26/16 09:15 08/26/16 21:14 08/27/16 07:05 White Blood Count 7.59 K/uL 10.04 K/uL Red Blood Count 1.81 M/uL 3.19 M/uL Hemoglobin 5.0 g/dL 8.9 g/dL Hematocrit 15.3 % 26.6 % Mean Corpuscular Volume 84.5 fL 83.4 fL Mean Corpuscular Hemoglobin 27.6 pg 27.9 pg Mean Corpuscular Hemoglobin Concent 32.7 g/dl 33.5 g/dl RDW Standard Deviation 43.4 fL 42.8 fL RDW Coefficient of Variation 14.2 % 14.1 % Platelet Count 269 K/uL 233 K/uL Mean Platelet Volume 9.7 fL 10.0 fL Sodium Level 143 mmol/L Potassium Level 3.6 mmol/L Chloride Level 110 mmol/L Carbon Dioxide Level 23 mmol/L Anion Gap 10.0 mmol/L Blood Urea Nitrogen 10 mg/dl Creatinine 0.56 mg/dl Est Creatinine Clear Calc Drug Dose 107.9 ml/min Estimated GFR () 142.0 Estimated GFR (Non- 122.5 BUN/Creatinine Ratio 18.6 Random Glucose 119 mg/dl Calcium Level 7.9 mg/dl Neutrophils (%) (Auto) 60.3 % Lymphocytes (%) (Auto) 27.2 % Monocytes (%) (Auto) 10.8 % Eosinophils (%) (Auto) 1.3 % Basophils (%) (Auto) 0.2 % Neutrophils # (Auto) 6.06 K/uL Lymphocytes # (Auto) 2.73 K/uL Monocytes # (Auto) 1.08 K/uL Eosinophils # (Auto) 0.13 K/uL Basophils # (Auto) 0.02 K/uL Immature Granulocyte % (Auto) 0.2 % Immature Granulocyte # (Auto) 0.02 K/uL Echinocytes 1+ Human Chorionic Gonadotropin, Qual NEG Assessment and Plan Day Number: 1 (1) Cervical mass Status: Acute Assessment & Plan: Discussed with the patient today the goals of the surgery. Patient with a prolapsing cervical fibroid causing menorrhagia with symptomatic anemia requiring transfusion. Procedure of choice here will be a myomectomy done transvaginally. The risks benefits and alternatives to this have been discussed while the benefits will be removal of the fibroids the risks of bleeding infection incomplete resection of the fibroid and recurrence. In addition we discussed the possibility of uncontrolled hemorrhage with an attempted myomectomy necessitating a total abdominal hysterectomy. The patient understands the procedure, all questions answered of the patient, and she wishes to proceed. (2) Uterine fibroid
--- NOTE | 2016-08-27 07:28 | History & Physical Bridge Note ---
H&P Re-Evaluation Bridge Note: I have examined the patient, reviewed the History & Physical and in the interval since the performance of the History & Physical I have noted the following changes of clinical significance: Please see bariatric coordinator progress note from this date for discussion of surgery with risks and benefits.
[2016-08-27 07:36] LABS: HEMATOCRIT 25.4 % (37-47)
[2016-08-27] MEDS: NICOTINE 21 MG/24 HR TDSY TD SCH ×2 (08:41→15:36)
[2016-08-27 11:14] LABS: ISTAT CARBON DIOXIDE 19 mEq/l (24-31); ISTAT CHLORIDE 106 mEq/L (101-112); ISTAT CREATININE 0.5 mg/dl (0.6-1.3); ISTAT HEMATOCRIT < 15 % (37-47); ISTAT IONIZED CALCIUM 1.14 mmol/l (1.12-1.32); ISTAT SODIUM 139 mEq/L (135-144)
[2016-08-27] MEDS ORDERED: KETOROLAC TROMETHAMINE 30 MG/ML VIAL IV. PRN (13:30)
[2016-08-27] MEDS ORDERED: IBUPROFEN 600 MG TAB PO PRN (13:30)
[2016-08-27] MEDS ORDERED: ONDANSETRON INJ 2 MG/ML 2 ML VIAL IV PRN ×2 (13:30→14:00)
--- NOTE | 2016-08-27 13:31 | [facility] Post Operative Brief Note ---
Immediate Operative Summary Operative Date Aug 27, 2016. Pre-Operative Diagnosis 1) Prolapsing Cervial Fibroid, 2) Anemia due to Acute Blood Loss Post-Operative Diagnosis Same Procedure(s) Performed 1) EUA 2) Cervical myomectomy 3) Uterine Curretage Surgeon Dr. Velasco Manager Bank Surgeon(s) Dr. Norman Estimated Blood Loss 150 Findings 6 cm necrotic prolapsing cervical fibroid. Fibroid debulked, stalked removed, Uterine cavity curettaged Fluids (cc crystalloids) 600 Specimens 1) Cervical Fibroid Drains None Anesthesia General Complication(s) None Disposition Recovery Room / PACU
--- NOTE | 2016-08-27 13:42 | OPERATIVE REPORT ---
DATE OF OPERATION: 08/27/2016 PREOPERATIVE DIAGNOSIS: Prolapsing cervical fibroid. POSTOPERATIVE DIAGNOSIS: 1. Same. PROCEDURES PERFORMED: 1. Resection of cervical fibroid. 2. Uterine curettage. SURGEON: Dr. Velasco. NURSING HOME ADMISSIONS DIRECTOR: Dr. Alex Norman. ANESTHESIA: General. FINDINGS: Exam under anesthesia revealed a large prolapsing 6 cm cervical fibroid with visualization fibroid appeared to be necrotic. Initial bulking of the fibroid with a twisting motion to remove the residual fibroid curettage of the endometrial cavity. All specimens sent for pathological evaluation. PROCEDURE IN DETAIL: The patient was taken to the operating room and after general anesthesia, was placed in dorsal lithotomy position and draped and prepped in the usual fashion. A Turner catheter was inserted into the bladder which remained there throughout the procedure. A large weighted speculum was placed into the posterior vagina and a Carlson speculum was placed anterior. A large necrotic fibroid noted with description as above. Using a 15 blade approximately 75% of the fibroid was debulked under the stalk. The stalk was near the cervical os, the cervical os was approximately 4-5 cm dilated. Grasping the residual stalk and in a twisting fashion, the majority of the cervical fibroid was excised and sent for pathological evaluation. Using a medium horseshoe curet, the uterine cavity was curettaged any residual tissue was removed and sent for pathological evaluation. The uterus was then observed for 5 minutes with a weighted speculum in place and minimal bleeding at this point. The decision was made to terminate the procedure. Turner catheter was removed from the bladder. The patient was taken out of dorsal lithotomy and to recovery room in satisfactory condition. I attest to the content of the Intraoperative Record and any orders documented therein. Any exceptio ns are noted below.
[2016-08-27] MEDS ORDERED: ESTROGENS, CONJUGATED INJ 25 MG in SYRINGE 0 ML IV SCH (13:45)
[2016-08-27] MEDS ORDERED: HYDROmorphone INJ 1 MG/ML SYR ONE (13:52)
[2016-08-27] MEDS ORDERED: HYDROmorphone INJ 1 MG/ML SYR IV PRN (14:00)
[2016-08-27] MEDS ORDERED: FLUMAZENIL 0.1 MG/1 ML 10 ML VIAL IV PRN (14:00)
[2016-08-27] MEDS ORDERED: PROMETHAZINE HCL INJ 12.5 MG in SODIUM CHLORIDE 0.9% 50ML 50 ML IV PRN (14:00)
[2016-08-27] MEDS ORDERED: LABETALOL HCL IV 5 MG/ML 20ML IV PRN (14:00)
[2016-08-27] MEDS ORDERED: ATROPINE SULFATE 0.1 MG/ML 5ML SYR IV PRN (14:00)
[2016-08-27] MEDS ORDERED: EpHEDrine SULFATE INJ 50 MG/ML AMP IV PRN (14:00)
[2016-08-27] MEDS ORDERED: NALOXONE HCL 0.4 MG/1 ML VIAL/CARP IV PRN (14:00)
--- NOTE | 2016-08-27 14:52 | Anesthesiology Progress Note ---
Anesthesia Post Op Note Date & Time Aug 27, 2016 at 14:52 Vital Signs Pain Intensity: 2 Vital Signs Past 12 Hours Date Time Temp Pulse Resp B/P Pulse Ox O2 Delivery O2 Flow Rate FiO2 08/27/16 14:25 42 16 111/71 100 Nasal Cannula 2 08/27/16 14:15 36.4 46 16 108/65 100 Nasal Cannula 2 08/27/16 14:05 41 20 115/85 100 Nasal Cannula 2 08/27/16 13:55 56 20 118/59 100 Mask 10 08/27/16 13:45 52 12 127/80 100 Mask 10 08/27/16 13:35 64 12 120/82 100 Mask 10 08/27/16 13:34 36.0 72 12 123/81 100 Mask 10 08/27/16 11:50 36.6 63 18 115/75 99 Room Air 08/27/16 07:30 Room Air 08/27/16 07:30 36.7 74 16 116/74 100 Room Air 08/27/16 04:40 36.7 82 14 101/67 97 Room Air Notes Mental Status: alert / awake / arousable, participated in evaluation Pt Amnestic to Procedure: Yes Nausea / Vomiting: adequately controlled Pain: adequately controlled Airway Patency, RR, SpO2: stable & adequate BP & HR: stable & adequate Hydration State: stable & adequate Anesthetic Complications: no major complications apparent
[2016-08-27] MEDS: LACTATED RINGER'S 1000ML 1,000 ML IV SCH (15:33)
[2016-08-27 20:10] LABS: HEMATOCRIT 24.9 % (37-47)
--- NOTE | 2016-08-27 21:22 | EMERGENCY ROOM VISIT NOTE ---
ED Visit Note First contact with patient: 09:06 I have personally seen and evaluated the patient with the PA. I agree with the diagnosis and management decisions and have been personally involved in the case. The patient is found to be markedly anemic with a hemoglobin of 5. Vital signs did remain stable however the patient will require blood transfusion. She was typed and crossed for 2 units. Case was discussed with Dr. Carvajal of PHLEBOTOMY PROGRAM COORDINATOR. She will be admitted for further management. Please see Valdo Garza PA-C's notes for further details of the history, physical and visit. Diagnosis: Dysfunctional vaginal bleeding I have personally spent greater than 30 minutes of critical care time in the direct management of this patient. This includes bedside care, interpretation of diagnostic studies, and testing, discussion with consultants, patient, and family members, and other required patient management activities. This 30 minutes is in excess of all separately billable procedures.
[2016-08-28 00:20] VITALS: BP 98/64; PULSE 84; TEMP 36.7; O2SAT 98
[2016-08-28 04:30] VITALS: BP 105/69; PULSE 85; TEMP 36.6; O2SAT 99
[2016-08-28 06:38] LABS: HEMATOCRIT 24.8 % (37-47); MEAN CELL VOLUME 84.4 fL (80-100); MEAN CORPUSCULAR HEMOGLOBIN 28.6 pg (25-34); MEAN CORPUSCULAR HGB CONC 33.9 g/dl (32-36); MEAN PLATELET VOLUME 10.4 fL (7.4-10.4); PLATELET COUNT 227 K/uL (130-400); RED BLOOD COUNT 2.94 M/uL (4.2-5.4); WHITE BLOOD COUNT 11.85 K/uL (4.8-10.8)
[2016-08-28 06:59] LABS: ANISOCYTOSIS PRESENT; BASO % 0.2 %; BASO ABS # 0.02 K/uL (0-0.2); COMPLETE YES; EOS % 1.9 %; IG% 0.3 %; LYMPH % 17.6 %; LYMPH ABS # 2.09 K/uL (1.2-3.4); POLYCHROMASIA 1+
[2016-08-28 07:20] VITALS: BP 108/65; PULSE 84; TEMP 36.8; O2SAT 97
--- NOTE | 2016-08-28 08:06 | OB/GYN Progress Note ---
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 Subjective conversation w/ patient (minimal bleeding), physical exam Ambulation: ambulating normally Voiding: no voiding problems Diet Tolerance: Regular Diet Objective Vital Signs Date Time Temp Pulse Resp B/P Pulse Ox O2 Delivery O2 Flow Rate FiO2 08/28/16 04:30 36.6 85 16 105/69 99 Room Air 08/28/16 00:20 98 Room Air 08/28/16 00:20 36.7 84 16 98/64 98 Room Air 08/27/16 20:05 36.6 80 16 82/49 99 Room Air 08/27/16 17:35 36.6 58 16 90/57 99 Room Air 08/27/16 16:35 36.8 57 18 94/65 99 Room Air 08/27/16 15:45 Room Air 08/27/16 15:35 36.4 50 18 103/70 100 Room Air 08/27/16 15:05 36.6 50 18 92/67 95 Room Air 08/27/16 14:35 100 Nasal Cannula 2.0 08/27/16 14:35 36.2 43 16 111/75 100 Nasal Cannula 2.0 08/27/16 14:25 42 16 111/71 100 Nasal Cannula 2 08/27/16 14:15 36.4 46 16 108/65 100 Nasal Cannula 2 08/27/16 14:05 41 20 115/85 100 Nasal Cannula 2 08/27/16 13:55 56 20 118/59 100 Mask 10 08/27/16 13:45 52 12 127/80 100 Mask 10 08/27/16 13:35 64 12 120/82 100 Mask 10 08/27/16 13:34 36.0 72 12 123/81 100 Mask 10 08/27/16 11:50 36.6 63 18 115/75 99 Room Air Physical Exam General Appearance: WELL-APPEARING, NO APPARENT DISTRESS Abdomen: normal bowel sounds Fundus: Firm Extremities: no calf tenderness Laboratory Results Last 24 Hours Test 08/27/16 19:57 08/28/16 06:17 Hemoglobin 8.4 g/dL 8.4 g/dL Hematocrit 24.9 % 24.8 % White Blood Count 11.85 K/uL Red Blood Count 2.94 M/uL Mean Corpuscular Volume 84.4 fL Mean Corpuscular Hemoglobin 28.6 pg Mean Corpuscular Hemoglobin Concent 33.9 g/dl Platelet Count 227 K/uL Mean Platelet Volume 10.4 fL Neutrophils (%) (Auto) 73.0 % Lymphocytes (%) (Auto) 17.6 % Monocytes (%) (Auto) 7.0 % Eosinophils (%) (Auto) 1.9 % Basophils (%) (Auto) 0.2 % Neutrophils # (Auto) 8.65 K/uL Lymphocytes # (Auto) 2.09 K/uL Monocytes # (Auto) 0.83 K/uL Eosinophils # (Auto) 0.23 K/uL Basophils # (Auto) 0.02 K/uL RDW Standard Deviation 45.8 fL RDW Coefficient of Variation 14.9 % Immature Granulocyte % (Auto) 0.3 % Immature Granulocyte # (Auto) 0.03 K/uL Polychromasia 1+ Anisocytosis PRESENT Assessment and Plan Post-Op Day Number: 1 (1) Cervical mass Status: Acute Assessment & Plan: - discussed surgery and findings with patient - bleeding minimal - will d/c home - Provera 5 mg for 12 days, then probable menses - Iron for anemia - f/u in 2 weeks for post-op check (2) Uterine fibroid
[2016-08-28] MEDS ORDERED: FRRS300 PO (08:09)
[2016-08-28] MEDS ORDERED: MEDR5TAB PO (08:09)
--- NOTE | 2016-08-28 08:10 | Discharge Instructions ---
Discharge Instructions Admission Reason for Admission: Anemia, Fibroid Discharge Discharge Diagnosis / Problem: same Discharge Goals Goal(s): Routine recovery after surgery Activity Recommendations Activity Limitations: as noted below . Instructions / Follow-Up Instructions / Follow-Up ACTIVITY RECOMMENDATIONS: * Avoid tampons, douching, hot tubs, pools, and intercourse until bleeding has stopped. * May shower as usual. * No strenuous activity for 24-48 hours. After 24-48 hours, you may do anything you feel like doing (driving and sports are okay). SPECIAL CARE INSTRUCTIONS: Special Diet: * Mild nausea may occur in the immediate post-operative period. * Take clear liquids such as tea, cola or bouillon until all nausea has subsided; you may then resume your normal diet. Special Care: * Light bleeding and vaginal spotting can last from a few days to 3-4 weeks. Call your doctor if bleeding becomes heavier than the heaviest part of your period. * Check your temperature twice a day for one week. If it goes above 100.4 degrees Fahrenheit (38.0 Celsius), notify your doctor. * Call your doctor's office for an appointment for 2 weeks after your surgery. FOLLOW-UP VISIT: Call your doctor's office for an appointment for 2 weeks after your surgery. Current Hospital Diet Patient's current hospital diet: Regular Diet Discharge Diet Recommended Diet: Regular Diet Procedures Procedures Performed: 1) EUA 2) Cervical myomectomy 3) Uterine Curretage Pending Studies Studies pending at discharge: yes List of pending studies: 1) Pthology from surgery Medical Emergencies . Who to Call and When: Medical Emergencies: If at any time you feel your situation is an emergency, please call 911 immediately. . Non-Emergent Contact Non-Emergency issues call your: Professional Services Specialist Call Non-Emergent contact if: you have a fever, temperature is above 100.5 . . "Provider Documentation" section prepared by Jacinto Velasco. VTE Core Measure Inpt VTE Proph given/why not?: SCD's
[2016-08-28] MEDS: NICOTINE 21 MG/24 HR TDSY TD SCH (09:00)
[2016-08-28 09:09] VITALS: BP 108/65; PULSE 84; TEMP 36.8; O2SAT 97
--- NOTE | 2016-08-28 18:36 | DISCHARGE SUMMARY ---
ADMITTING DIAGNOSES: 1. Symptomatic cervical fibroid. 2. Anemia. 3. Acute blood loss. DISCHARGE DIAGNOSES: Same. PROCEDURES PERFORMED: 1. Cervical myomectomy. 2. D\T\C. 3. Transfusion of 4 units of packed red blood cells. DISCHARGE MEDICATIONS: 1. Provera 5 mg p.o. every day for 12 days. 2. Iron sulfate 325 mg p.o. b.i.d. ADMISSION HISTORY: The patient is a 31-year-old 1, para 1 admitted from the Emergency Room for anemia from chronic blood loss from a symptomatic fibroid uterus. The patient was seen in the office in July after referral from the Emergency Room. She had been having heavy vaginal bleeding and was found to have a prolapsing cervical fibroid. The patient initially was uninsured and declined scheduling surgery until financial aspects could be arranged. The patient was scheduled for surgery on 29 August but had 2 episodes of acute vaginal bleeding. The first one was early August where she was transfused 2 units of packed red blood cells. She then presented to the Emergency Room again on 26 August with lightheadedness, dizziness and heavy bleeding. She had a hemoglobin of 5 and was admitted for transfusion and treatment. ADMISSION PHYSICAL EXAMINATION: GENERAL: Showed a thin female, pale, afebrile in no acute distress. HEAD, EYES, EARS, NOSE, AND THROAT EXAMINATION: Unremarkable. NECK: Supple. LUNGS: Clear. HEART: Tachycardiac. ABDOMEN: Soft, nontender. PELVIC EXAMINATION: Showed normal external genitalia. On bimanual examination there was a prolapsing cervical fibroid in the vagina approximately 6 cm in diameter, small anterior uterus. The adnexa show no palpable masses. EXTREMITY EXAMINATION: Showed no deep calf tenderness. ADMISSION LABORATORY VALUES: Showed a hemoglobin of 5.00 and hematocrit of 15.3. HOSPITAL COURSE: Because of the anemia, the patient was typed and crossed and transfused 4 units of packed red blood cells. This allowed her to become hemodynamically stable and allowed her to be taken to the operating room on 08/27/2016. Operative findings showed the necrotic cervical fibroid which was excised and D\T\C was performed for any residual tissue. The patient received Premarin 25 mg IV immediately postop to stabilize the endometrial lining. On the first postoperative day, the patient's bleeding was minimal. Her H\T\H was 8.4 and 24.8. She was discharged home with a prescription for the medications as listed as above. She will follow up in the office in 2 weeks' time for a postoperative check but as always she has been instructed to call with any questions, problems or difficulties.
== END 2016-08-28 09:35 | disposition home or self-care (01) | DRG 744 ==
LOC: C.EDB 08:48 → C.MS4N 14:20
PROVIDERS: ADMIT Obstetrics & Gynecology; ATTEND Obstetrics & Gynecology
PROC: 0UDB7ZX Extraction of Endometrium, Via Natural or Artificial Opening, Diagnostic (ICD-10-PCS; 2016-08-27)
PROC: 0UCC7ZZ Extirpation of Matter from Cervix, Via Natural or Artificial Opening (ICD-10-PCS; principal; 2016-08-27 12:30)
DX: D28.7 Benign neoplasm of other specified female genital organs (principal); D62 Acute posthemorrhagic anemia; F17.200 Nicotine dependence, unspecified, uncomplicated; Z83.3 Family history of diabetes mellitus

== ENCOUNTER → 2016-09-19 | Outpatient (CLI) | payer SELFPAY ==
[~2016-09-19] MED LIST changes: +BUPR8SUB19 SL; +FRRS300 PO; -IBUP-1050 PO; +OXYC-57 PO; +SULF800T23 PO
[2016-09-19 12:12] LABS: HEMATOCRIT 33.6 % (37-47); MEAN CELL VOLUME 85.3 fL (80-100); MEAN CORPUSCULAR HEMOGLOBIN 27.7 pg (25-34); MEAN CORPUSCULAR HGB CONC 32.4 g/dl (32-36); MEAN PLATELET VOLUME 10.6 fL (7.4-10.4); PLATELET COUNT 219 K/uL (130-400); RED BLOOD COUNT 3.94 M/uL (4.2-5.4); WHITE BLOOD COUNT 6.12 K/uL (4.8-10.8)
== END | disposition home or self-care (01) ==
LOC: C.LAB1850 10:48
PROVIDERS: ATTEND Obstetrics & Gynecology
DX: D50.0 Iron deficiency anemia secondary to blood loss (chronic) (principal)

== ENCOUNTER 2017-03-03 09:16 | Emergency (ER) | payer SELFPAY ==
[~2017-03-03] VITALS: Ht 149.9 cm; Wt 54.8 kg
[~2017-03-03 09:16] MED LIST changes: -BUPR8SUB19 SL; -OXYC-57 PO; -SULF800T23 PO
[2017-03-03 09:17] VITALS: TEMP 36.7; Ht 149.9 cm; Wt 54.8 kg
[2017-03-03] MEDS ORDERED: BUPR8SUB19 SL (09:36)
[2017-03-03] MEDS ORDERED: ONDANSETRON INJ 2 MG/ML 2 ML VIAL IV STA (09:48)
[2017-03-03] MEDS ORDERED: KETOROLAC TROMETHAMINE 30 MG/ML VIAL IV STA (09:48)
[2017-03-03] MEDS ORDERED: SODIUM CHLORIDE 0.9% 1000ML 1,000 ML IV STA (09:48)
[2017-03-03] MEDS ORDERED: HYDROmorphone INJ 1 MG/ML SYR IV STA (09:48)
--- NOTE | 2017-03-03 09:51 | EMERGENCY ROOM VISIT NOTE ---
History Report prepared by Maxim: Dahlia Barlow Under the Supervision of: Dr. Bc Seo M.D. First contact with patient: 09:42 Chief Complaint: FLANK PAIN Stated Complaint: PEEING BLOOD History of Present Illness The patient is a 31 year old female who presents to the Emergency Room with complaints of constant suprapubic abdominal pain beginning last night. She rates the pain at a 7/10. She also reports having back pain. The patient states that she has a history of kidney stones and denies a chance of . Source of History: patient Onset: last night Position: abdomen (suprapubic) Symptom Intensity: rated at a 7/10 Timing: constant Associated Symptoms: + back pain Review of Systems See HPI for pertinent positives & negatives. A total of 10 systems reviewed and were otherwise negative. Past Medical & Surgical Medical Problems: (1) Fibroid (bleeding) (uterine) (2) Kidney stones (3) Methicillin resistant Staphylococcus aureus infection (4) Uterine fibroid Surgical Problems: (1) History of lithotripsy Family History Diabetes mellitus Social History Smoking Status: Current Every Day Smoker Alcohol Use: none Drug Use: none Marital Status: single Housing Status: lives with family Occupation Status: employed Current/Historical Medications Scheduled Buprenorphine Hcl (Subutex), 1 TAB SL DAILY Sulfa/Trimethoprim (Bactrim Ds 800MG/160MG), 1 TAB PO BID Scheduled PRN Oxycodone/Acetaminophen 5MG/325MG (Percocet 5MG/325MG), 1-2 TAB PO Q4H PRN for Pain Allergies Coded Allergies: No Known Allergies (Unverified , 03/03/17) Physical Exam Vital Signs Date Time Temp Pulse Resp B/P (MAP) Pulse Ox O2 Delivery O2 Flow Rate FiO2 03/03/17 12:27 65 16 12/78 98 03/03/17 11:40 63 16 113/75 97 Room Air 03/03/17 09:17 36.7 77 18 133/92 98 Room Air Physical Exam GENERAL: Patient is a healthy-appearing well-nourished female HEAD: Normocephalic atraumatic EYES: Ocular movements intact pupils equal and react to light OROPHARYNX mucous membranes are moist no exudates present no erythema or edema present NECK: Supple no nuchal rigidity CHEST: Good equal expansion LUNGS: Clear and equal to auscultation CARDIAC: Normal S1 and S2 ABDOMEN: Slight tenderness in suprapubic area. BACK: No CVA tenderness EXTREMITIES: No pain upon palpation normal muscle strength in all groups no clubbing cyanosis or edema NEURO: Patient is following commands and answering questions appropriately. Alert and oriented x3 Cranial Nerves 2-12 grossly intact Medical Decision & Procedures ER Provider Diagnostic Interpretation: Radiology results as stated below per my review and radiologist interpretation: (RENAL)RETROPERITON COMP CLINICAL HISTORY: 31 years-old Female presenting with Pt c/o flank pain, history of bilateral nephrolithiasis. TECHNIQUE: Real-time grayscale and limited color Doppler ultrasound imaging of the kidneys and bladder was performed. COMPARISON: 08/30/2015. FINDINGS: Right kidney: Normal echogenicity. Right kidney measures 9.5 cm. No hydronephrosis. Multiple hyperechogenic foci with posterior shadowing and twinkling artifact consistent with renal calculi, the largest in the interpolar region measuring 13 mm. Normal perfusion. Left kidney: Normal echogenicity. Left kidney measures 8.7 cm. No hydronephrosis. Multiple hyperechogenic foci with posterior shadowing and twinkling artifact consistent with renal calculi, the largest in the interpolar region measuring 5 mm. Normal perfusion. Bladder: Minimal layering debris within the bladder lumen. Bilateral ureteral jets present. Other: None. IMPRESSION: 1. Bilateral nephrolithiasis. No evidence of obstruction. 2. Minimal layering debris within the bladder lumen. Electronically signed by: Inocente Rai M.D. 03/03/2017 11:15 AM Dictated Date/Time: 03/03/2017 11:12 AM X-ray results as stated below per interpretation by me and the radiologist: KUB CLINICAL HISTORY: 31 years-old Female presenting with Pt c/o flank pain, history of bilateral nephrolithiasis . TECHNIQUE: Single supine view of the abdomen was obtained. COMPARISON: 08/30/2015. FINDINGS: Stable position of the 10 mm calculus in the interpolar to lower pole of the right kidney. Multiple previously seen left renal calculi are again apparent, although the evaluation is somewhat degraded by the presence of moderate stool burden. Left renal calculi measure up to 2 mm. New calcification in the region of the right renal pelvis is now apparent at the level of L3, which may represent a calculus at the right ureteropelvic junction. Nonobstructive bowel gas pattern. Moderate stool burden. Osseous structures normal. IMPRESSION: 1. Bilateral nephrolithiasis. 2. Calcification in the region of the right ureteropelvic junction could represent a proximal right ureteral calculus. No hydronephrosis was noted on contemporaneous ultrasound. If there is continuing clinical concern, noncontrast CT could be obtained for better visualization. Electronically signed by: Inocente Rai M.D. 03/03/2017 11:29 AM Dictated Date/Time: 03/03/2017 11:25 AM Laboratory Results 03/03/17 09:55 Red Blood Count 3.51, Mean Corpuscular Volume 90.6, Mean Corpuscular Hemoglobin 30.2, Mean Corpuscular Hemoglobin Concent 33.3, Mean Platelet Volume 10.0, Neutrophils (%) (Auto) 46.2, Lymphocytes (%) (Auto) 45.3, Monocytes (%) (Auto) 5.7, Eosinophils (%) (Auto) 2.3, Basophils (%) (Auto) 0.5, Neutrophils # (Auto) 2.59, Lymphocytes # (Auto) 2.54, Monocytes # (Auto) 0.32, Eosinophils # (Auto) 0.13, Basophils # (Auto) 0.03 03/03/17 09:55 Test 03/03/17 09:50 03/03/17 09:55 Urine Color DK YELLOW Urine Appearance CLOUDY (CLEAR) Urine pH 5.5 (4.5-7.5) Urine Specific [place] 1.028 (1.000-1.030) Urine Protein TRACE (NEG) Urine Glucose (UA) NEG (NEG) Urine Ketones TRACE (NEG) Urine Occult Blood 3+ (NEG) Urine Nitrite NEG (NEG) Urine Bilirubin NEG (NEG) Urine Urobilinogen NEG (NEG) Urine Leukocyte Esterase TRACE (NEG) Urine WBC (Auto) >30 /hpf (0-5) Urine RBC (Auto) >30 /hpf (0-4) Urine Hyaline Casts (Auto) 1-5 /lpf (0-5) Urine Epithelial Cells (Auto) >30 /lpf (0-5) Urine Bacteria (Auto) 1+ (NEG) Urine Yeast (Auto) (NONE PRSENT) Urine Test NEG (NEG) White Blood Count 5.61 K/uL (4.8-10.8) Red Blood Count 3.51 M/uL (4.2-5.4) Hemoglobin 10.6 g/dL (12.0-16.0) Hematocrit 31.8 % (37-47) Mean Corpuscular Volume 90.6 fL (80-100) Mean Corpuscular Hemoglobin 30.2 pg (25-34) Mean Corpuscular Hemoglobin Concent 33.3 g/dl (32-36) Platelet Count 196 K/uL (130-400) Mean Platelet Volume 10.0 fL (7.4-10.4) Neutrophils (%) (Auto) 46.2 % Lymphocytes (%) (Auto) 45.3 % Monocytes (%) (Auto) 5.7 % Eosinophils (%) (Auto) 2.3 % Basophils (%) (Auto) 0.5 % Neutrophils # (Auto) 2.59 K/uL (1.4-6.5) Lymphocytes # (Auto) 2.54 K/uL (1.2-3.4) Monocytes # (Auto) 0.32 K/uL (0.11-0.59) Eosinophils # (Auto) 0.13 K/uL (0-0.5) Basophils # (Auto) 0.03 K/uL (0-0.2) RDW Standard Deviation 48.6 fL (36.4-46.3) RDW Coefficient of Variation 14.7 % (11.5-14.5) Immature Granulocyte % (Auto) 0.0 % Immature Granulocyte # (Auto) 0.00 K/uL (0.00-0.02) Anion Gap 5.0 mmol/L (3-11) Est Creatinine Clear Calc Drug Dose 97.5 ml/min Estimated GFR () 137.3 Estimated GFR (Non- 118.5 BUN/Creatinine Ratio 23.5 (10-20) Calcium Level 8.1 mg/dl (8.5-10.1) Total Bilirubin 0.2 mg/dl (0.2-1) Direct Bilirubin < 0.1 mg/dl (0-0.2) Aspartate Amino Transf (AST/SGOT) 10 U/L (15-37) Alanine Aminotransferase (ALT/SGPT) 18 U/L (12-78) Alkaline Phosphatase 57 U/L (45-117) Total Protein 6.0 gm/dl (6.4-8.2) Albumin 3.1 gm/dl (3.4-5.0) Lipase 76 U/L (73-393) Labs reviewed by ED physician. Medications Administered Medications (Trade) Dose Ordered Sig/[place] Route Start Time Stop Time Status Last Admin Dose Admin Sodium Chloride 1,000 ml @ 999 mls/hr Q1H1M STAT IV 03/03/17 09:48 03/03/17 10:48 DC 03/03/17 10:11 999 MLS/HR Ketorolac Tromethamine (Toradol Inj) 30 mg NOW STAT IV 03/03/17 09:48 03/03/17 09:51 DC 03/03/17 10:10 30 MG Hydromorphone HCl (Dilaudid Inj) 1 mg NOW STAT IV 03/03/17 09:48 03/03/17 09:51 DC 03/03/17 10:11 1 MG Ondansetron HCl (Zofran Inj) 4 mg NOW STAT IV 03/03/17 09:48 03/03/17 09:51 DC 03/03/17 10:09 4 MG Ceftriaxone Sodium (Rocephin Inj) 1 gm NOW STAT IV 03/03/17 10:53 03/03/17 10:54 DC 03/03/17 11:38 1 GM ED Course 0945: Past medical records reviewed. The patient was evaluated in room B8. A complete history and physical examination was performed. 0948: Ordered Zofran Inj 4 mg IV, Dilaudid Inj 1 mg IV, Toradol Inj 30 mg IV, Sodium Chloride 1,000 ml @ 999 mls/hr IV. 1053: Ordered Rocephin Inj 1 gm IV. 1140:Upon reexamination the patient is resting. I discussed results and treatment plan with the patient. She verbalizes agreement and understanding. The patient is ready for discharge. Medical Decision Differential diagnosis: Etiologies such as appendicitis, diverticulitis, PUD, biliary pathology, UTI, pancreatitis, obstruction, mesenteric ischemia, aortic pathology, infections, inflammatory bowel disease, renal colic, as well as others were entertained. This is a 31-year-old female who presents emergency department over complaints that she is being blood and having painful urination. The patient has a history of kidney stones and feels this is a kidney stone. As she has had a number of CAT scans and using shared medical decision-making, we made a decision not to CAT scan the patient's abdomen. She was sent for KUB as well as a renal ultrasound. This was concerning for possible small right stone. The patient was also started on Rocephin as well as Bactrim for possible UTI. I do feel that the patient can be safely discharged home for follow-up with her primary care physician. Patient was given a prescription for Percocet for home for pain. She was also given Toradol as well as Dilaudid here in the emergency department. Repeat examination revealed improvement the patient's symptoms. Patient was in agreement with the treatment plan. Medication Reconcilliation Current Medication List: was personally reviewed by me Blood Pressure Screening Patient's blood pressure: Normal blood pressure Impression Primary Impression: Right flank pain Scribe Attestation The scribe's documentation has been prepared under my direction and personally reviewed by me in its entirety. I confirm that the note above accurately reflects all work, treatment, procedures, and medical decision making performed by me. Departure Information Dispostion Home / Self-Care Prescriptions Oxycodone/Acetaminophen 5MG/325MG (PERCOCET 5MG/325MG) Tab 1-2 TAB PO Q4H Y for Pain, #14 TAB Prov: Bc Seo MD 03/03/17 Sulfa/Trimethoprim (Bactrim Ds 800MG/160MG) Tab 1 TAB PO BID for 10 Days, #20 TAB Prov: Bc Seo MD 03/03/17 Referrals No Doctor, Assigned (PCP) Forms HOME CARE DOCUMENTATION FORM, IMPORTANT VISIT INFORMATION, School Instructions, Work Instructions Patient Instructions Kidney Stones - [facility], Kidney Stones Eval, Kidney Stones Expectant Therapy, Kidney Stones Identify, Kidney Stones Prevent, Kidney Stones Risk, My [facility] Additional Instructions You received narcotic or benzodiazepene medication while in the emergency room today. Do not drive, operate heavy machinery, or drink alcohol under the influence of this medication. Take 600 mg Ibuprofen every 6 hours Take Percocet for breakthrough pain Culture results are usually available in approx 48 hours You have been examined and treated today on an emergency basis only. This is not a substitute for, or an effort to provide, complete comprehensive medical care. It is impossible to recognize and treat all injuries or illnesses in a single emergency department visit. It is therefore important that you follow up closely with your PCP. Call as soon as possible for an appointment. Thank you for your time and consideration. I look forward to speaking with you again soon. Please don't hesitate to call us if you have any questions.
[2017-03-03 10:16] LABS: BASO % 0.5 %; BASO ABS # 0.03 K/uL (0-0.2); COMPLETE YES; EOS % 2.3 %; HEMATOCRIT 31.8 % (37-47); LYMPH % 45.3 %; LYMPH ABS # 2.54 K/uL (1.2-3.4); MEAN CELL VOLUME 90.6 fL (80-100); MEAN CORPUSCULAR HEMOGLOBIN 30.2 pg (25-34); MEAN CORPUSCULAR HGB CONC 33.3 g/dl (32-36); MONO % 5.7 %; NEUT % 46.2 %; PLATELET COUNT 196 K/uL (130-400); RED BLOOD COUNT 3.51 M/uL (4.2-5.4); WHITE BLOOD COUNT 5.61 K/uL (4.8-10.8)
[2017-03-03 10:23] LABS: URINE APPEARANCE CLOUDY (CLEAR); URINE BILIRUBIN NEG (NEG); URINE COLOR DK YELLOW; URINE EPITHELIAL CELL AUTO >30 /lpf (0-5); URINE NITRITE NEG (NEG); URINE PH 5.5 (4.5-7.5); URINE SPECIFIC GRAVITY 1.028 (1.000-1.030); UROBILINOGEN NEG (NEG)
[2017-03-03 10:26] LABS: MANUAL MICROSCOPIC REQUIRED? NO; REVIEW REQ? YES
[2017-03-03 10:40] LABS: ALT/SGPT 18 U/L (12-78); AST/SGOT 10 U/L (15-37); BLOOD UREA NITROGEN 15 mg/dl (7-18); BUN/CREATININE RATIO 23.5 (10-20); CALCIUM 8.1 mg/dl (8.5-10.1); CARBON DIOXIDE 25 mmol/L (21-32); CHLORIDE 110 mmol/L (98-107); CREATININE 0.62 mg/dl (0.60-1.20); GLUCOSE 80 mg/dl (70-99); SODIUM 140 mmol/L (136-145)
[2017-03-03 10:43] LABS: ALKALINE PHOSPHATASE 57 U/L (45-117)
[2017-03-03] MEDS ORDERED: CEFTRIAXONE SOD INJ 1 GM ADDVIAL IV STA (10:53)
--- NOTE | 2017-03-03 11:16 | DIAGNOSTIC IMAGING REPORT ---
(RENAL)RETROPERITON COMP CLINICAL HISTORY: 31 years-old Female presenting with Pt c/o flank pain, history of bilateral nephrolithiasis. TECHNIQUE: Real-time grayscale and limited color Doppler ultrasound imaging of the kidneys and bladder was performed. COMPARISON: 08/30/2015. FINDINGS: Right kidney: Normal echogenicity. Right kidney measures 9.5 cm. No hydronephrosis. Multiple hyperechogenic foci with posterior shadowing and twinkling artifact consistent with renal calculi, the largest in the interpolar region measuring 13 mm. Normal perfusion. Left kidney: Normal echogenicity. Left kidney measures 8.7 cm. No hydronephrosis. Multiple hyperechogenic foci with posterior shadowing and twinkling artifact consistent with renal calculi, the largest in the interpolar region measuring 5 mm. Normal perfusion. Bladder: Minimal layering debris within the bladder lumen. Bilateral ureteral jets present. Other: None. IMPRESSION: 1. Bilateral nephrolithiasis. No evidence of obstruction. 2. Minimal layering debris within the bladder lumen. Electronically signed by: Inocente Rai M.D. 03/03/2017 11:15 AM Dictated Date/Time: 03/03/2017 11:12 AM
[2017-03-03] MEDS ORDERED: CEFTRIAXONE SOD INJ 1 GM ADDVIAL ONE (11:24)
--- NOTE | 2017-03-03 11:31 | DIAGNOSTIC IMAGING REPORT ---
KUB CLINICAL HISTORY: 31 years-old Female presenting with Pt c/o flank pain, history of bilateral nephrolithiasis . TECHNIQUE: Single supine view of the abdomen was obtained. COMPARISON: 08/30/2015. FINDINGS: Stable position of the 10 mm calculus in the interpolar to lower pole of the right kidney. Multiple previously seen left renal calculi are again apparent, although the evaluation is somewhat degraded by the presence of moderate stool burden. Left renal calculi measure up to 2 mm. New calcification in the region of the right renal pelvis is now apparent at the level of L3, which may represent a calculus at the right ureteropelvic junction. Nonobstructive bowel gas pattern. Moderate stool burden. Osseous structures normal. IMPRESSION: 1. Bilateral nephrolithiasis. 2. Calcification in the region of the right ureteropelvic junction could represent a proximal right ureteral calculus. No hydronephrosis was noted on contemporaneous ultrasound. If there is continuing clinical concern, noncontrast CT could be obtained for better visualization. Electronically signed by: Inocente Rai M.D. 03/03/2017 11:29 AM Dictated Date/Time: 03/03/2017 11:25 AM
[2017-03-03] MEDS ORDERED: SULF800T23 PO (12:06)
[2017-03-03] MEDS ORDERED: OXYC-57 PO (12:06)
[2017-03-03 12:27] VITALS: BP 12/78; PULSE 65; O2SAT 98
[2017-05-01] MEDS ORDERED: BUPR1SUB23 PO (13:40)
== END 2017-03-03 12:28 | disposition home or self-care (01) ==
LOC: C.EDB 09:16
DX: R10.9 Unspecified abdominal pain (principal); Z87.442 Personal history of urinary calculi; Z86.14 Personal history of Methicillin resistant Staphylococcus aureus infection; Z83.3 Family history of diabetes mellitus; F17.210 Nicotine dependence, cigarettes, uncomplicated

== ENCOUNTER 2017-04-28 06:38 | Emergency (ER) | payer SELFPAY ==
[~2017-04-28] VITALS: Ht 149.9 cm; Wt 55.3 kg
[~2017-04-28 06:38] MED LIST changes: -ASPI-390 PO; -BUPR8MIS SL; +BUPR8SUB19 SL; -FRRS300 PO; +OXYC-57 PO
[2017-04-28 06:45] VITALS: TEMP 36.6; Ht 149.9 cm; Wt 55.3 kg
[2017-04-28] MEDS ORDERED: SODIUM CHLORIDE 0.9% 1000ML 1,000 ML IV STA (06:50)
[2017-04-28] MEDS ORDERED: ONDANSETRON INJ 2 MG/ML 2 ML VIAL IV STA (06:50)
[2017-04-28] MEDS ORDERED: CEFTRIAXONE SOD INJ 1 GM ADDVIAL IV STA (06:50)
[2017-04-28 07:14] LABS: PREG INTERNAL NEGATIVE QC NEG CLEAR BACKGROUND; PREG INTERNAL POSITIVE QC POS CONTROL LINE
[2017-04-28 07:16] LABS: MANUAL MICROSCOPIC REQUIRED? YES; REVIEW REQ? NO; URINE APPEARANCE CLOUDY (CLEAR); URINE COLOR RED
[2017-04-28 07:19] LABS: SULFASALICYLIC ACID POS (NEG); URINE SPECIFIC GRAVITY 1.012 (1.000-1.030)
[2017-04-28 07:24] LABS: BASO % 0.2 %; BASO ABS # 0.02 K/uL (0-0.2); COMPLETE YES; EOS % 1.5 %; HEMATOCRIT 32.6 % (37-47); IG% 0.2 %; LYMPH % 28.4 %; LYMPH ABS # 2.79 K/uL (1.2-3.4); MEAN CELL VOLUME 89.6 fL (80-100); MEAN CORPUSCULAR HEMOGLOBIN 30.8 pg (25-34); MEAN CORPUSCULAR HGB CONC 34.4 g/dl (32-36); MEAN PLATELET VOLUME 9.9 fL (7.4-10.4); MONO % 8.6 %; NEUT % 61.1 %; PLATELET COUNT 239 K/uL (130-400); RED BLOOD COUNT 3.64 M/uL (4.2-5.4); WHITE BLOOD COUNT 9.81 K/uL (4.8-10.8)
[2017-04-28 07:24] LABS: URINE RBC >30 /hpf (0-4)
[2017-04-28 07:32] LABS: URINE WBC >30 /hpf (0-5)
[2017-04-28 07:34] LABS: URINE BACTERIA NEG (NEG)
[2017-04-28 07:35] LABS: ZZUR CULT IF INDIC CLEAN CATCH YES
[2017-04-28 07:48] LABS: ALT/SGPT 17 U/L (12-78); AST/SGOT 14 U/L (15-37); BLOOD UREA NITROGEN 15 mg/dl (7-18); BUN/CREATININE RATIO 23.1 (10-20); CALCIUM 8.2 mg/dl (8.5-10.1); CARBON DIOXIDE 27 mmol/L (21-32); CHLORIDE 105 mmol/L (98-107); CREATININE 0.64 mg/dl (0.60-1.20); GLUCOSE 83 mg/dl (70-99); POTASSIUM 3.4 mmol/L (3.5-5.1); SODIUM 139 mmol/L (136-145)
[2017-04-28 07:50] LABS: ALKALINE PHOSPHATASE 73 U/L (45-117)
--- NOTE | 2017-04-28 09:01 | DIAGNOSTIC IMAGING REPORT ---
ABD/PELVIS WITHOUT FOR STONE CLINICAL HISTORY: 31 years-old Female presenting with kidney stone. TECHNIQUE: Multidetector CT of the abdomen and pelvis was performed without the use of intravenous contrast. IV contrast: None. A dose lowering technique was used consistent with the principles of ALARA (as low as reasonably achievable). COMPARISON: 04/12/2014. CT DOSE (mGy.cm): The estimated cumulative dose is 363.10 mGy.cm. FINDINGS: [employer] topogram: Unremarkable. Lung bases: Minimal dependent changes likely atelectasis. Dilatation of the hepatic veins and IVC could suggest elevated right heart pressures. Normal heart size. No pericardial or pleural effusion. Liver: Normal morphology. Normal density. Biliary: No gross biliary ductal dilatation allowing for noncontrast technique. Normal gallbladder. Pancreas: Normal noncontrast appearance. Spleen: Normal noncontrast appearance. Adrenal glands: Normal noncontrast appearance. Kidneys and ureters: Two obstructing proximal right ureteral calculi in the region of the ureteropelvic junction, the more distal calculus measuring 5 mm and the more proximal calculus measuring 10 mm there is resultant mild right hydroureteronephrosis. Additional punctate nonobstructing calculus at the lower pole the right kidney. Multiple nonobstructing calculi in the left kidney measuring up to 3 mm no left hydronephrosis. Bladder: Normal. No bladder calculi. Pelvic organs: Rightward deviation of the otherwise normal-appearing uterus. Prominence of the cervix, incompletely evaluated. Normal noncontrast appearance of the left ovary. Right ovary poorly visualized. Bowel: Moderate stool burden throughout normal caliber colon. Unchanged appearance of the appendix, which contains high density material similar to prior exam. Mild dilatation of the diameter of the appendix, although no periappendiceal inflammatory change. This appearance is unchanged since 2014. No bowel obstruction. Peritoneal cavity: No free fluid or intraperitoneal gas. Lymph nodes: No gross lymphadenopathy allowing for noncontrast technique. Vasculature: Normal noncontrast appearance. Abdominal wall: Normal. Musculoskeletal: Normal. IMPRESSION: 1. Two obstructing calculi in the proximal right ureter near the right ureteropelvic junction, the more proximal calculus measuring 10 mm in the distal calculus measuring 5 mm. Resultant mild right hydroureteronephrosis. 2. Bilateral nephrolithiasis. Electronically signed by: Inocente Rai M.D. 04/28/2017 8:59 AM Dictated Date/Time: 04/28/2017 8:52 AM
--- NOTE | 2017-04-28 10:05 | EMERGENCY ROOM VISIT NOTE ---
History First contact with patient: 06:49 Chief Complaint: URINARY SYMPTOMS Stated Complaint: PEEING BLOOD Nursing Triage Summary: pt reports hx of kidney stones. pt reports nausea, vomitting feeling hot and cold. pt reports blood in urine x 2 days. History of Present Illness The patient is a 31 year old female who presents to the Emergency Room with complaints of abdominal pain and hematuria -Pt reports a PMHx of UTI, kidney stones and fibroids -Pt describes the pain as a crampy suprapubic pain worse with urination. Pain began 4 days ago. Pt say that she is urinating blood for 2 days. -Pt has reports associated n/v. Patient reports 1 episode of red watery emesis yesterday. -Pt denies vaginal bleeding, discharge, itching or burning -Pt has had one sexual partner over the past year -LMP end 4 days ago. Pt reports normal menses. Review of Systems see below Past Medical/Surgical History Medical Problems: (1) Fibroid (bleeding) (uterine) (2) Kidney stones (3) Methicillin resistant Staphylococcus aureus infection (4) Uterine fibroid Surgical Problems: (1) History of lithotripsy Family History Diabetes mellitus Social History Smoking Status: Current Every Day Smoker Alcohol Use: none Drug Use: none Marital Status: single Housing Status: lives with family Occupation Status: employed Current/Historical Medications Scheduled Buprenorphine Hcl (Subutex), 1 TAB SL DAILY Physical Exam Vital Signs Date Time Temp Pulse Resp B/P (MAP) Pulse Ox O2 Delivery O2 Flow Rate FiO2 04/28/17 08:42 69 16 102/77 99 Room Air 04/28/17 07:24 73 18 113/82 98 Room Air 04/28/17 06:45 36.6 92 17 41/96 100 Room Air Physical Exam see below General Appearance: WD/WN, no apparent distress Head: normocephalic, atraumatic Eyes: normal inspection, PERRL, EOMI Neck: supple, no adenopathy Respiratory/Chest: chest non-tender, lungs clear, normal breath sounds, no respiratory distress, no accessory muscle use Cardiovascular: regular rate, rhythm, no edema, no gallop, no murmur Abdomen / GI: normal bowel sounds, soft, no organomegaly, no pulsatile mass Back: no CVA tenderness Neurologic/Psych: no motor/sensory deficits, alert, normal mood/affect Medical Decision & Procedures Laboratory Results 04/28/17 07:15 Red Blood Count 3.64, Mean Corpuscular Volume 89.6, Mean Corpuscular Hemoglobin 30.8, Mean Corpuscular Hemoglobin Concent 34.4, Mean Platelet Volume 9.9, Neutrophils (%) (Auto) 61.1, Lymphocytes (%) (Auto) 28.4, Monocytes (%) (Auto) 8.6, Eosinophils (%) (Auto) 1.5, Basophils (%) (Auto) 0.2, Neutrophils # (Auto) 5.99, Lymphocytes # (Auto) 2.79, Monocytes # (Auto) 0.84, Eosinophils # (Auto) 0.15, Basophils # (Auto) 0.02 04/28/17 07:15 Test 04/28/17 06:55 04/28/17 07:15 Urine Color RED Urine Appearance CLOUDY (CLEAR) Urine pH (4.5-7.5) Urine Specific [place] 1.012 (1.000-1.030) Urine Protein POS (NEG) Urine Glucose (UA) (NEG) Urine Ketones (NEG) Urine Occult Blood (NEG) Urine Nitrite (NEG) Urine Bilirubin (NEG) Urine Urobilinogen (NEG) Urine Leukocyte Esterase (NEG) Urine RBC >30 /hpf (0-4) Urine WBC >30 /hpf (0-5) Urine Epithelial Cells >30 /lpf (0-5) Urine Calcium Oxalate Crystals PRESENT (NONE PRSENT) Urine Bacteria NEG (NEG) Urine Test NEG (NEG) White Blood Count 9.81 K/uL (4.8-10.8) Red Blood Count 3.64 M/uL (4.2-5.4) Hemoglobin 11.2 g/dL (12.0-16.0) Hematocrit 32.6 % (37-47) Mean Corpuscular Volume 89.6 fL (80-100) Mean Corpuscular Hemoglobin 30.8 pg (25-34) Mean Corpuscular Hemoglobin Concent 34.4 g/dl (32-36) Platelet Count 239 K/uL (130-400) Mean Platelet Volume 9.9 fL (7.4-10.4) Neutrophils (%) (Auto) 61.1 % Lymphocytes (%) (Auto) 28.4 % Monocytes (%) (Auto) 8.6 % Eosinophils (%) (Auto) 1.5 % Basophils (%) (Auto) 0.2 % Neutrophils # (Auto) 5.99 K/uL (1.4-6.5) Lymphocytes # (Auto) 2.79 K/uL (1.2-3.4) Monocytes # (Auto) 0.84 K/uL (0.11-0.59) Eosinophils # (Auto) 0.15 K/uL (0-0.5) Basophils # (Auto) 0.02 K/uL (0-0.2) RDW Standard Deviation 45.4 fL (36.4-46.3) RDW Coefficient of Variation 13.7 % (11.5-14.5) Immature Granulocyte % (Auto) 0.2 % Immature Granulocyte # (Auto) 0.02 K/uL (0.00-0.02) Anion Gap 7.0 mmol/L (3-11) Est Creatinine Clear Calc Drug Dose 94.9 ml/min Estimated GFR () 135.9 Estimated GFR (Non- 117.2 BUN/Creatinine Ratio 23.1 (10-20) Calcium Level 8.2 mg/dl (8.5-10.1) Total Bilirubin 0.2 mg/dl (0.2-1) Direct Bilirubin < 0.1 mg/dl (0-0.2) Aspartate Amino Transf (AST/SGOT) 14 U/L (15-37) Alanine Aminotransferase (ALT/SGPT) 17 U/L (12-78) Alkaline Phosphatase 73 U/L (45-117) Total Protein 7.1 gm/dl (6.4-8.2) Albumin 3.7 gm/dl (3.4-5.0) Lipase 80 U/L (73-393) Medications Administered Medications (Trade) Dose Ordered Sig/Juwan Route Start Time Stop Time Status Last Admin Dose Admin Sodium Chloride 1,000 ml @ 999 mls/hr Q1H1M STAT IV 04/28/17 06:50 04/28/17 07:50 DC 04/28/17 07:22 999 MLS/HR Ondansetron HCl (Zofran Inj) 4 mg NOW STAT IV 04/28/17 06:50 04/28/17 06:53 DC 04/28/17 07:22 4 MG Ceftriaxone Sodium (Rocephin Inj) 1 gm NOW STAT IV 04/28/17 06:50 04/28/17 06:53 DC 04/28/17 07:22 1 GM ED Course 6:45 History and physical 7:15 CBC w diff, PRP, liver profile, lipase, HCG, UA ordered: IVF, Zofran, Rocephin 7:30 reviewed lab results 8:[address] 8:45 Reaccessed patient. Pt is tolerating pain w/o medications 9:[address]: 10 mm stone in right ureteropelvic junction and 5 mm stone in the right ureter. Mild Hydroureteronephrosis. Medical Decision 31 yo female presented to the ED with recent h/o suprapubic pain and hematuria. -Following differential was considered: UTI/pyelonephritis, cystitis, kidney stones, , PID, ovarian torsion. -UA demonstrated >20 WBC and >20 RBC's. -CT was subsequently ordered and the patient was found to have imaging significant for stones in the right ureter (10 mm at ureteropelvic junction and 5 mm distally. Mild hydronephrosis) -Throughout the ED course, patient was seen to be in stable condition: afebrile , low white count and tolerating pain without medication -After consultation with Amber Hudson from [facility] [place] urology, it was decided that the patient could be managed in the outpatient setting. -Pt has a appointment tomorrow at 3pm with [facility]. Impression Primary Impression: Kidney stone on right side Additional Impressions: Hematuria Hydronephrosis Departure Information Dispostion Home / Self-Care Condition GOOD Referrals No Doctor, Assigned (PCP) Patient Instructions My [facility] Additional Instructions You came to the ED today with abdominal pain and blood in you urine. It was found that this is due to kidney stones on the right side (10mm and 5mm stones) . We discussed this with [facility] and they have agreed to see you tomorrow at 3pm. Please follow up sooner if you develop worsening symptoms or high fevers. Problem Qualifiers
[2017-04-28 10:09] VITALS: BP 105/78; PULSE 71; O2SAT 98
--- NOTE | 2017-04-28 13:06 | EMERGENCY ROOM VISIT NOTE ---
History Report prepared by Maxim: Earnestine Jarrett Under the Supervision of: Guille JassoO. First contact with patient: 06:48 Chief Complaint: URINARY SYMPTOMS Stated Complaint: PEEING BLOOD Nursing Triage Summary: pt reports hx of kidney stones. pt reports nausea, vomitting feeling hot and cold. pt reports blood in urine x 2 days. History of Present Illness The patient is a 31 year old female who presents to the Emergency Room with complaints of hematuria and suprapubic abdominal pain. The patient's symptoms started 4 days ago. The patient was initially crampy in the lower abdomen. She also describes some burning with urination. She denied any vaginal discharge, itching or burning. The patient does report having had similar symptoms in the past. The patient does report associated nausea and some vomiting. She vomited once at 3 AM this morning. The patient was working at [employer] overnight when the symptoms worsened. Last menstrual periods started 3 days ago. This was normal and on time. Source of History: patient Onset: four days ago Position: abdomen (suprapubic) Quality: cramping Associated Symptoms: + nausea, + vomiting, + urinary symptoms (hemturia, burning with urination) Review of Systems As above otherwise negative for 10 systems Past Medical & Surgical Medical Problems: (1) Fibroid (bleeding) (uterine) (2) Kidney stones (3) Methicillin resistant Staphylococcus aureus infection (4) Uterine fibroid Surgical Problems: (1) History of lithotripsy Family History Diabetes mellitus Social History Smoking Status: Current Every Day Smoker Alcohol Use: none Drug Use: none Marital Status: single Housing Status: lives with family Occupation Status: employed Current/Historical Medications Scheduled Buprenorphine Hcl (Subutex), 1 TAB SL DAILY Allergies Coded Allergies: No Known Allergies (Unverified , 04/28/17) Physical Exam Vital Signs Date Time Temp Pulse Resp B/P (MAP) Pulse Ox O2 Delivery O2 Flow Rate FiO2 04/28/17 10:09 71 18 105/78 98 04/28/17 08:42 69 16 102/77 99 Room Air 04/28/17 07:24 73 18 113/82 98 Room Air 04/28/17 06:45 36.6 92 17 41/96 100 Room Air Physical Exam CONSTITUTIONAL/VITAL SIGNS: Reviewed / noted above. GENERAL: Non-toxic in appearance. INTEGUMENTARY: Warm, dry, and [place]. HEAD: Normocephalic. EYES: without scleral icterus or trauma. ENT/OROPHARYNX: clear and moist. LYMPHADENOPATHY/NECK: Is supple without lymphadenopathy or meningismus. RESPIRATORY: Lungs clear and equal. CARDIOVASCULAR: Regular rate and rhythm. GI/ABDOMEN: Soft and tender in the suprapubic area. No organomegaly or pulsatile mass. No rebound or guarding. Normal bowel sounds. EXTREMITIES: Warm and well perfused. BACK: No CVA tenderness. NEUROLOGICAL: Intact without focal deficits. PSYCHIATRIC: normal affect. MUSCULOSKELETAL: Normally developed with good muscle tone. TRIAGE NURSING DOCUMENTATION REVIEWED. Medical Decision & Procedures ER Provider Diagnostic Interpretation: CT results as stated below per my review and radiologist interpretation: ABD/PELVIS WITHOUT FOR STONE CLINICAL HISTORY: 31 years-old Female presenting with kidney stone. TECHNIQUE: Multidetector CT of the abdomen and pelvis was performed without the use of intravenous contrast. IV contrast: None. A dose lowering technique was used consistent with the principles of ALARA (as low as reasonably achievable). COMPARISON: 04/12/2014. CT DOSE (mGy.cm): The estimated cumulative dose is 363.10 mGy.cm. FINDINGS: Twister Tender topogram: Unremarkable. Lung bases: Minimal dependent changes likely atelectasis. Dilatation of the hepatic veins and IVC could suggest elevated right heart pressures. Normal heart size. No pericardial or pleural effusion. Liver: Normal morphology. Normal density. Biliary: No gross biliary ductal dilatation allowing for noncontrast technique. Normal gallbladder. Pancreas: Normal noncontrast appearance. Spleen: Normal noncontrast appearance. Adrenal glands: Normal noncontrast appearance. Kidneys and ureters: Two obstructing proximal right ureteral calculi in the region of the ureteropelvic junction, the more distal calculus measuring 5 mm and the more proximal calculus measuring 10 mm there is resultant mild right hydroureteronephrosis. Additional punctate nonobstructing calculus at the lower pole the right kidney. Multiple nonobstructing calculi in the left kidney measuring up to 3 mm no left hydronephrosis. Bladder: Normal. No bladder calculi. Pelvic organs: Rightward deviation of the otherwise normal-appearing uterus. Prominence of the cervix, incompletely evaluated. Normal noncontrast appearance of the left ovary. Right ovary poorly visualized. Bowel: Moderate stool burden throughout normal caliber colon. Unchanged appearance of the appendix, which contains high density material similar to prior exam. Mild dilatation of the diameter of the appendix, although no periappendiceal inflammatory change. This appearance is unchanged since 2013. No bowel obstruction. Peritoneal cavity: No free fluid or intraperitoneal gas. Lymph nodes: No gross lymphadenopathy allowing for noncontrast technique. Vasculature: Normal noncontrast appearance. Abdominal wall: Normal. Musculoskeletal: Normal. IMPRESSION: 1. Two obstructing calculi in the proximal right ureter near the right ureteropelvic junction, the more proximal calculus measuring 10 mm in the distal calculus measuring 5 mm. Resultant mild right hydroureteronephrosis. 2. Bilateral nephrolithiasis. Electronically signed by: Inocente Rai M.D. 04/28/2017 8:59 AM Dictated Date/Time: 04/28/2017 8:52 AM Laboratory Results 04/28/17 07:15 Red Blood Count 3.64, Mean Corpuscular Volume 89.6, Mean Corpuscular Hemoglobin 30.8, Mean Corpuscular Hemoglobin Concent 34.4, Mean Platelet Volume 9.9, Neutrophils (%) (Auto) 61.1, Lymphocytes (%) (Auto) 28.4, Monocytes (%) (Auto) 8.6, Eosinophils (%) (Auto) 1.5, Basophils (%) (Auto) 0.2, Neutrophils # (Auto) 5.99, Lymphocytes # (Auto) 2.79, Monocytes # (Auto) 0.84, Eosinophils # (Auto) 0.15, Basophils # (Auto) 0.02 04/28/17 07:15 Test 04/28/17 06:55 04/28/17 07:15 Urine Color RED Urine Appearance CLOUDY (CLEAR) Urine pH (4.5-7.5) Urine Specific [place] 1.012 (1.000-1.030) Urine Protein POS (NEG) Urine Glucose (UA) (NEG) Urine Ketones (NEG) Urine Occult Blood (NEG) Urine Nitrite (NEG) Urine Bilirubin (NEG) Urine Urobilinogen (NEG) Urine Leukocyte Esterase (NEG) Urine RBC >30 /hpf (0-4) Urine WBC >30 /hpf (0-5) Urine Epithelial Cells >30 /lpf (0-5) Urine Calcium Oxalate Crystals PRESENT (NONE PRSENT) Urine Bacteria NEG (NEG) Urine Test NEG (NEG) White Blood Count 9.81 K/uL (4.8-10.8) Red Blood Count 3.64 M/uL (4.2-5.4) Hemoglobin 11.2 g/dL (12.0-16.0) Hematocrit 32.6 % (37-47) Mean Corpuscular Volume 89.6 fL (80-100) Mean Corpuscular Hemoglobin 30.8 pg (25-34) Mean Corpuscular Hemoglobin Concent 34.4 g/dl (32-36) Platelet Count 239 K/uL (130-400) Mean Platelet Volume 9.9 fL (7.4-10.4) Neutrophils (%) (Auto) 61.1 % Lymphocytes (%) (Auto) 28.4 % Monocytes (%) (Auto) 8.6 % Eosinophils (%) (Auto) 1.5 % Basophils (%) (Auto) 0.2 % Neutrophils # (Auto) 5.99 K/uL (1.4-6.5) Lymphocytes # (Auto) 2.79 K/uL (1.2-3.4) Monocytes # (Auto) 0.84 K/uL (0.11-0.59) Eosinophils # (Auto) 0.15 K/uL (0-0.5) Basophils # (Auto) 0.02 K/uL (0-0.2) RDW Standard Deviation 45.4 fL (36.4-46.3) RDW Coefficient of Variation 13.7 % (11.5-14.5) Immature Granulocyte % (Auto) 0.2 % Immature Granulocyte # (Auto) 0.02 K/uL (0.00-0.02) Anion Gap 7.0 mmol/L (3-11) Est Creatinine Clear Calc Drug Dose 94.9 ml/min Estimated GFR () 135.9 Estimated GFR (Non- 117.2 BUN/Creatinine Ratio 23.1 (10-20) Calcium Level 8.2 mg/dl (8.5-10.1) Total Bilirubin 0.2 mg/dl (0.2-1) Direct Bilirubin < 0.1 mg/dl (0-0.2) Aspartate Amino Transf (AST/SGOT) 14 U/L (15-37) Alanine Aminotransferase (ALT/SGPT) 17 U/L (12-78) Alkaline Phosphatase 73 U/L (45-117) Total Protein 7.1 gm/dl (6.4-8.2) Albumin 3.7 gm/dl (3.4-5.0) Lipase 80 U/L (73-393) Laboratory results as stated above per my review. Medications Administered Medications (Trade) Dose Ordered Sig/Juwan Route Start Time Stop Time Status Last Admin Dose Admin Sodium Chloride 1,000 ml @ 999 mls/hr Q1H1M STAT IV 04/28/17 06:50 04/28/17 07:50 DC 04/28/17 07:22 999 MLS/HR Ondansetron HCl (Zofran Inj) 4 mg NOW STAT IV 04/28/17 06:50 04/28/17 06:53 DC 04/28/17 07:22 4 MG Ceftriaxone Sodium (Rocephin Inj) 1 gm NOW STAT IV 04/28/17 06:50 04/28/17 06:53 DC 04/28/17 07:22 1 GM ED Course 0650: Previous medical records were reviewed. The patient was evaluated in room A2. A complete history and physical examination was performed. Ordered Sodium Chloride 1000 ml @ 999 mls/hr IV, Zofran Inj 4 mg IV, Rocephin Inj 1 gm IV. 0919: Dr. Justice, PPG1 discussed the patients case with Dr. Jeffrey, Urology. She states that she will see the patient in the office. 0922: Dr. Justice, PPG1 reevaluated the patient and he discussed the exam findings with her and he discussed the treatment plan. The patient verbalized complete understanding and agreement. The patient is ready for discharge. Medical Decision Is a 31-year-old female who presents with the above complaint. Primarily she is complaining of suprapubic abdominal pain as well as some nausea and vomiting. She has had hematuria as well. The patient's exam reveals some tenderness in the suprapubic area. Her vital signs are stable. She is afebrile. This is a 31-year-old female who presents to the ED with a chief complaint of hematuria. The patient also states that she felt hot and cold, had a little nausea and vomiting and has some discomfort mainly in the suprapubic area. The patient was seen in conjunction with the resident. The patient's urinalysis reveals a findings suggesting hematuria. There is no obvious infection. CT scan of the abdomen and pelvis reveals a 10 mm proximal right ureteral stone as well as a 5 mm distal right ureteral stone with mild [place]. The patient did not want pain medication. She was given IV fluids, IV Zofran and some IV Rocephin pending urine culture. We spoke with Amber Hudson from urology. She will see the patient tomorrow morning. The patient did was discharged on some pain medication. She is felt to be stable for discharge. Medication Reconcilliation Current Medication List: was personally reviewed by me Consults Time Called: 914 Consulting Physician: Dr. Justice, PPG1 Returned Call: 918 Dr. Justice, PPG1 discussed the patients case with Dr. Jeffrey, Urology. She states that she will see the patient in the office. Impression Primary Impression: Hydronephrosis Additional Impressions: Hematuria Ureteral calculus, right Scribe Attestation The scribe's documentation has been prepared under my direction and personally reviewed by me in its entirety. I confirm that the note above accurately reflects all work, treatment, procedures, and medical decision making performed by me. Departure Information Dispostion Home / Self-Care Referrals No Doctor, Assigned (PCP) Forms HOME CARE DOCUMENTATION FORM, IMPORTANT VISIT INFORMATION Patient Instructions My ENT Surgical Additional Instructions You came to the ED today with abdominal pain and blood in you urine. It was found that this is due to kidney stones on the right side (10mm and 5mm stones) . We discussed this with [facility] and they have agreed to see you tomorrow at 3pm. Please follow up sooner if you develop worsening symptoms or high fevers. Problem Qualifiers
[2017-05-01] MEDS ORDERED: BUPR1SUB23 PO (13:40)
== END 2017-04-28 10:10 | disposition home or self-care (01) ==
LOC: C.EDB 06:40 → C.EDA 10:10
DX: N13.30 Unspecified hydronephrosis (principal); R31.9 Hematuria, unspecified; N20.1 Calculus of ureter; Z87.442 Personal history of urinary calculi; Z86.14 Personal history of Methicillin resistant Staphylococcus aureus infection; F17.210 Nicotine dependence, cigarettes, uncomplicated

== ENCOUNTER → 2017-05-08 | Day surgery (SDC) | payer SELFPAY ==
[2017-05-01 13:41] VITALS: Ht 149.9 cm; Wt 53.6 kg
[~2017-05-08] VITALS: Ht 149.9 cm; Wt 53.6 kg
[~2017-05-08] MED LIST changes: +ACETAMINOPHEN 325 MG TAB PO PRN; +ATROPINE SULFATE 0.1 MG/ML 5ML SYR IV PRN; +BUPR1SUB23 PO; -BUPR8SUB19 SL; +CIPR-255 PO; +CIPROFLOXACIN 400MG / D5W IV SCH; +DEXAMETHASONE SOD INJ 4 MG/ML VIAL IV PRN; +DEXAMETHASONE SOD INJ 4 MG/ML VIAL ONE; +EpHEDrine SULFATE INJ 50 MG/ML AMP IV PRN; +FENTANYL CITRATE INJ 50 MCG/1 ML 2 ML VIAL IV PRN; +FENTANYL CITRATE INJ 50 MCG/1 ML 2 ML VIAL ONE; +KETOROLAC TROMETHAMINE 30 MG/ML VIAL IV. PRN; +LABETALOL HCL IV 5 MG/ML 20ML IV PRN; +LACTATED RINGER'S 1000ML 1,000 ML IV SCH; +LIDOCAINE HCL 2% 2 ML VIAL (20MG/ML) ONE; +METOCLOPRAMIDE HCL INJ 5 MG/ML 2 ML VIAL IV PRN; +MIDAZOLAM HCL 1 MG/ML 2ML VIAL ONE; +MoRPHine SULFATE 10 MG/ML CARP/VIAL IV PRN; +ONDANSETRON INJ 2 MG/ML 2 ML VIAL IV PRN; +ONDANSETRON INJ 2 MG/ML 2 ML VIAL ONE; -OXYC-57 PO; +OXYC7.5T65 PO; +OXYCODONE HCL IR 5 MG TAB (IMMEDIATE RELEASE) PO PRN; +OXYCODONE/ACETAMINOPHEN 7.5-325 TAB PO PRN; +PHEN-775 PO; +PHENYLEPHRINE 100MCG/ML 5ML SYR IV PRN; +PROPOFOL IV EMULSION 10 MG/ML 20 ML VIAL IV ONE
--- NOTE | 2017-05-08 06:56 | History & Physical Bridge - SC ---
H&P Re-Evaluation Bridge Note: I have examined the patient, reviewed the History & Physical and in the interval since the performance of the History & Physical I have noted the following changes of clinical significance: Right Stone x 2 for ESWL. No changes noted
--- NOTE | 2017-05-08 07:33 | Discharge Instructions ---
Discharge Instructions Date of Service May 08, 2017. Admission Reason for Admission: Stones Discharge Discharge Diagnosis / Problem: Stone Discharge Goals Goal(s): Decrease discomfort, Improve function Activity Recommendations Activity Limitations: resume your previous activity Lifting Limitations: none Exercise/Sports Limitations: none . Instructions / Follow-Up Instructions / Follow-Up May have blood in urine. May have discomfort or flank bruising. Call if any fevers. Current Hospital Diet Hospital Diet(s): Regular Diet Discharge Diet Recommended Diet: Regular Diet Procedures Procedures Performed: ESWL Pending Studies Studies pending at discharge: no Medical Emergencies . Who to Call and When: Medical Emergencies: If at any time you feel your situation is an emergency, please call 911 immediately. . Non-Emergent Contact Non-Emergency issues call your: Primary Care Provider, Urologist Call Non-Emergent contact if: you have a fever, temperature is above 101, temperature is above 101.5, your pain is not controlled, your pain is worsening . . "Provider Documentation" section prepared by Josue Mayer,. . VTE Core Measure Inpt VTE Proph given/why not?: Johnnie Lance, SCD's
--- NOTE | 2017-05-08 07:48 | [facility] Operative Report ---
Operative Report Operative Date May 08, 2017. Pre-Operative Diagnosis Right Renal Stone Post-Operative Diagnosis Same as pre-op Procedure(s) Performed ESWL Surgeon Dr. Mayer Firmware Architect Surgeon(s) None Estimated Blood Loss 0 mL Findings Large 1 cm stone at Right UPJ Fluids (cc crystalloids) See Anes Report Specimens None Anesthesia General Complication(s) None Disposition Recovery Room / PACU Indications Large symptomatic stone on right UPJ. Risks and benefits discussed at length. Patient agreeable and consented. Description of Procedure Patient was consented and brought back to the operating room. Patient was placed under anesthesia in the supine position. Patient was prepped and draped in the regular sterile fashion. A time out was completed. With the time out completed, The patient was assessed with fluoroscopy. The stone was identified and position was triangulated. At this point, the shock waves commenced. The stone was monitored throughout the process with fluoroscopy to assess progression and maintain position. The stone was pulverized with 2500 shocks to the large right stone at a maximum voltage of 5 with a total fluoroscopic time of 3:19. With the stone treated, the procedure ended. The patient was cleaned, aroused from anesthesia, and transferred to the pacu in stable condition having tolerated the procedure well with no complications. I was present and participated in all aspects of the procedure. The patient will be monitored in the PACU until transferred. I attest to the content of the Intraoperative Record and any orders documented therein. Any exceptions are noted below.
[2017-05-08 08:30] VITALS: TEMP 36.4
[2017-05-08 08:48] VITALS: BP 120/86; PULSE 65; O2SAT 100
--- NOTE | 2017-05-08 08:57 | Anesthesia Progress Nt - [facility] ---
Anesthesia Post Op Note Date & Time May 08, 2017 at 08:57 Vital Signs Pain Intensity: 0 Vital Signs Past 12 Hours Date Time Temp Pulse Resp B/P (MAP) Pulse Ox O2 Delivery O2 Flow Rate FiO2 05/08/17 08:48 65 16 120/86 (97) 100 Room Air 05/08/17 08:30 36.4 61 16 118/85 (96) 97 Room Air 05/08/17 08:21 106/81 05/08/17 08:19 36.6 64 14 106/81 100 Room Air 05/08/17 08:19 67 14 100 05/08/17 08:19 67 14 05/08/17 08:16 36.7 05/08/17 08:15 121/82 05/08/17 08:14 67 13 05/08/17 08:14 67 13 100 05/08/17 08:11 110/84 05/08/17 08:09 56 11 05/08/17 08:09 58 11 100 05/08/17 08:06 127/80 05/08/17 08:04 56 14 100 05/08/17 08:04 56 14 05/08/17 08:01 120/80 05/08/17 07:59 58 10 100 05/08/17 07:59 59 10 05/08/17 07:56 122/80 05/08/17 07:54 62 14 05/08/17 07:54 65 14 100 05/08/17 07:50 131/84 05/08/17 07:49 64 99 05/08/17 07:49 36.2 60 12 131/84 100 Mask 6 05/08/17 07:49 64 05/08/17 06:34 37.1 78 16 115/79 (91) 99 Room Air Notes Mental Status: alert / awake / arousable, participated in evaluation Pt Amnestic to Procedure: Yes Nausea / Vomiting: adequately controlled Pain: adequately controlled Airway Patency, RR, SpO2: stable & adequate BP & HR: stable & adequate Hydration State: stable & adequate Anesthetic Complications: no major complications apparent
== END | disposition home or self-care (01) ==
LOC: X.SURG 06:26
PROVIDERS: ATTEND Urology
DX: N20.0 Calculus of kidney (principal); N20.1 Calculus of ureter; N93.8 Other specified abnormal uterine and vaginal bleeding; D26.0 Other benign neoplasm of cervix uteri; D50.0 Iron deficiency anemia secondary to blood loss (chronic); G43.909 Migraine, unspecified, not intractable, without status migrainosus; F17.200 Nicotine dependence, unspecified, uncomplicated; F19.21 Other psychoactive substance dependence, in remission; Z87.898 Personal history of other specified conditions; Z87.440 Personal history of urinary (tract) infections; Z86.14 Personal history of Methicillin resistant Staphylococcus aureus infection; Z98.890 Other specified postprocedural states; Z80.3 Family history of malignant neoplasm of breast; Z83.3 Family history of diabetes mellitus; Z82.49 Family history of ischemic heart disease and other diseases of the circulatory system

== ENCOUNTER 2017-05-15 13:18 | Emergency (ER) | payer SELFPAY ==
[~2017-05-15] VITALS: Ht 152.4 cm; Wt 55.8 kg
[~2017-05-15 13:18] MED LIST changes: -ACETAMINOPHEN 325 MG TAB PO PRN; -ATROPINE SULFATE 0.1 MG/ML 5ML SYR IV PRN; -CIPROFLOXACIN 400MG / D5W IV SCH; -DEXAMETHASONE SOD INJ 4 MG/ML VIAL IV PRN; -DEXAMETHASONE SOD INJ 4 MG/ML VIAL ONE; -EpHEDrine SULFATE INJ 50 MG/ML AMP IV PRN; -FENTANYL CITRATE INJ 50 MCG/1 ML 2 ML VIAL IV PRN; -FENTANYL CITRATE INJ 50 MCG/1 ML 2 ML VIAL ONE; -KETOROLAC TROMETHAMINE 30 MG/ML VIAL IV. PRN; -LABETALOL HCL IV 5 MG/ML 20ML IV PRN; -LACTATED RINGER'S 1000ML 1,000 ML IV SCH; -LIDOCAINE HCL 2% 2 ML VIAL (20MG/ML) ONE; -METOCLOPRAMIDE HCL INJ 5 MG/ML 2 ML VIAL IV PRN; -MIDAZOLAM HCL 1 MG/ML 2ML VIAL ONE; -MoRPHine SULFATE 10 MG/ML CARP/VIAL IV PRN; -ONDANSETRON INJ 2 MG/ML 2 ML VIAL IV PRN; -ONDANSETRON INJ 2 MG/ML 2 ML VIAL ONE; -OXYCODONE HCL IR 5 MG TAB (IMMEDIATE RELEASE) PO PRN; -OXYCODONE/ACETAMINOPHEN 7.5-325 TAB PO PRN; -PHENYLEPHRINE 100MCG/ML 5ML SYR IV PRN; -PROPOFOL IV EMULSION 10 MG/ML 20 ML VIAL IV ONE
[2017-05-15 13:23] VITALS: Ht 152.4 cm; Wt 55.8 kg
[2017-05-15] MEDS ORDERED: ONDANSETRON INJ 2 MG/ML 2 ML VIAL IV STA (13:41)
[2017-05-15] MEDS ORDERED: KETOROLAC TROMETHAMINE 30 MG/ML VIAL IV STA (13:41)
[2017-05-15] MEDS ORDERED: SODIUM CHLORIDE 0.9% 1000ML 1,000 ML IV STA (13:41)
[2017-05-15] MEDS ORDERED: FENTANYL CITRATE INJ 50 MCG/1 ML 2 ML VIAL IV STA (13:41)
[2017-05-15 14:25] LABS: MANUAL MICROSCOPIC REQUIRED? YES; URINE APPEARANCE TURBID (CLEAR); URINE BILIRUBIN NEG (NEG); URINE COLOR RED; URINE NITRITE NEG (NEG); URINE PH 5.5 (4.5-7.5); URINE SPECIFIC GRAVITY 1.025 (1.000-1.030); UROBILINOGEN NEG (NEG)
[2017-05-15 14:36] LABS: REVIEW REQ? NO
[2017-05-15 14:37] LABS: URINE RBC >30 /hpf (0-4)
[2017-05-15 14:40] LABS: URINE BACTERIA NEG (NEG)
[2017-05-15 14:41] LABS: ZZUR CULT IF INDIC CLEAN CATCH NO
[2017-05-15 14:49] LABS: BASO % 0.3 %; BASO ABS # 0.02 K/uL (0-0.2); COMPLETE YES; EOS % 3.2 %; HEMATOCRIT 31.7 % (37-47); IG% 0.1 %; LYMPH % 41.1 %; LYMPH ABS # 2.81 K/uL (1.2-3.4); MEAN CELL VOLUME 89.3 fL (80-100); MEAN CORPUSCULAR HEMOGLOBIN 29.6 pg (25-34); MEAN CORPUSCULAR HGB CONC 33.1 g/dl (32-36); MONO % 10.5 %; NEUT % 44.8 %; PLATELET COUNT 245 K/uL (130-400); RED BLOOD COUNT 3.55 M/uL (4.2-5.4); WHITE BLOOD COUNT 6.83 K/uL (4.8-10.8)
--- NOTE | 2017-05-15 14:57 | DIAGNOSTIC IMAGING REPORT ---
ABD/PELVIS WITHOUT FOR STONE HISTORY: 31 years-old Female flank pain acute lower abdominal pain with recent lithotripsy and hematuria. COMPARISON: KUB 05/07/2017, CT 04/28/2017 TECHNIQUE: Multiple axial CT images of the abdomen and pelvis were obtained without contrast. A dose lowering technique was used consistent with the principals of JONNY. FINDINGS: Lung bases are clear. No pneumoperitoneum. Imaged inferior cardiac chambers are unremarkable. Liver, spleen, pancreas and gallbladder are unremarkable. Bilateral nephrolithiasis again seen with at least 3 calculi on the left measuring up to 3-4 mm. Large calculus of the inferior pole right kidney measures 8 mm. Punctate calculus of the interpolar right kidney. Moderate right-sided hydroureteronephrosis secondary to multiple calculi of the distal right ureter. Additionally, there is mild right-sided perinephric and periureteral inflammatory stranding. The proximal most calculi measure up to 6 mm as seen on images 301 and 305 of series 3. There are at least 3 additional calculi of the distal right ureter just proximal to the right ureterovesicular junction measuring up to 8 mm. The left ureter and urinary bladder are unremarkable. Uterus and adnexa are also within normal limits. Abdominal aorta is normal in course and caliber. No bulky adenopathy. Minimal mildly prominent cortical jugular likely physiologic. No bowel obstruction. Moderate diffuse stool burden suggests constipation. Unchanged appearance of the appendix which contains high attenuating material and is mildly dilated, however is unchanged from comparison. No inflammatory changes to suggest acute appendicitis. Soft tissues are unremarkable. Bones appear intact. IMPRESSION: 1. Moderate right-sided hydroureteronephrosis secondary to multiple calculi of the distal right ureter measuring up to 8 mm as above. Multiple bilateral nonobstructing renal calculi are also present. 2. Suggested constipation. The above report was generated using voice recognition software. It may contain grammatical, syntax or spelling errors. Electronically signed by: Russel Stone M.D. 05/15/2017 2:56 PM Dictated Date/Time: 05/15/2017 2:44 PM
[2017-05-15] MEDS ORDERED: TAMS0.4C38 PO (15:50)
[2017-05-15] MEDS ORDERED: OXYC-57 PO (15:50)
[2017-05-15] MEDS ORDERED: DOCU-94 PO (15:50)
--- NOTE | 2017-05-15 15:51 | EMERGENCY ROOM VISIT NOTE ---
History Report prepared by Maxim: Brian Portillo Under the Supervision of: Dr. Bc Onofre D.O. First contact with patient: 13:28 Chief Complaint: ABDOMINAL PAIN Stated Complaint: BLOOD IN URINE History of Present Illness The patient is a 31 year old female with a history of kidney stones who presents to the Emergency Room with complaints of worsening abdominal pain that started a couple days ago. She notes that she had a lithotripsy a week ago to break up a 1 cm right ureteral stone. The patient says that she was doing well for 3 days afterward and was urinating and was passing stones, but 2 days ago, she started having really bad abdominal cramps, similar to her period cramps, but she is not having her period. The patient states that her last period was 2 weeks ago. She notes that she took Ibuprofen and the pain went away, but 2 days ago, she noticed blood in her urine, which has persisted. The patient adds that her abdominal cramping came back again today, and is worse than her prior episode. She denies any nausea, vomiting, or fevers. Source of History: patient Onset: A couple days ago Position: abdomen Symptom Intensity: "really bad" Quality: other (like period cramps) Timing: worsening Associated Symptoms: + urinary symptoms (blood in urine), No fevers, No nausea, No vomiting, No diarrhea Note: No other associated symptoms noted. Review of Systems See HPI for pertinent positives & negatives. A total of 10 systems reviewed and were otherwise negative. Past Medical & Surgical Medical Problems: (1) Fibroid (bleeding) (uterine) (2) Kidney stones (3) Methicillin resistant Staphylococcus aureus infection (4) Uterine fibroid Surgical Problems: (1) History of lithotripsy Family History Diabetes mellitus Social History Smoking Status: Current Every Day Smoker Alcohol Use: none Drug Use: none Marital Status: single Housing Status: lives with family Occupation Status: employed Current/Historical Medications Scheduled Buprenorphine Hcl-Naloxone Hcl (Suboxone 8-2 Mg), 1 TAB PO QAM Docusate Sodium (Colace), 1 CAP PO BID Phenazopyridine Hcl (Pyridium), 200 MG PO TID Tamsulosin Hcl (Flomax), 0.4 MG PO HS Scheduled PRN Oxycodone/Acetaminophen 5MG/325MG (Percocet 5MG/325MG), 1 TAB PO Q6H PRN for Pain Allergies Coded Allergies: No Known Allergies (Unverified , 05/15/17) Physical Exam Vital Signs Date Time Temp Pulse Resp B/P (MAP) Pulse Ox O2 Delivery O2 Flow Rate FiO2 05/15/17 15:59 36.8 70 16 123/81 99 05/15/17 15:37 36.8 70 16 123/81 99 Room Air 05/15/17 13:23 36.7 81 18 160/99 99 Room Air Physical Exam CONSTITUTIONAL/VITAL SIGNS: Reviewed / noted above. GENERAL: Non-toxic in appearance. INTEGUMENTARY: Warm, dry, and [place]. HEAD: Normocephalic. EYES: without scleral icterus or trauma. ENT/OROPHARYNX: clear and moist. LYMPHADENOPATHY/NECK: Is supple without lymphadenopathy or meningismus. RESPIRATORY: Lungs clear and equal. CARDIOVASCULAR: Regular rate and rhythm. GI/ABDOMEN: Soft and nontender. No organomegaly or pulsatile mass. No rebound or guarding. Normal bowel sounds. EXTREMITIES: Warm and well perfused. BACK: No CVA tenderness. NEUROLOGICAL: Intact without focal deficits. PSYCHIATRIC: normal affect. MUSCULOSKELETAL: Normally developed with good muscle tone. Medical Decision & Procedures ER Provider Diagnostic Interpretation: CT results as stated below per my review and radiologist interpretation: ABD/PELVIS WITHOUT FOR STONE HISTORY: 31 years-old Female flank pain acute lower abdominal pain with recent lithotripsy and hematuria. COMPARISON: KUB 05/07/2017, CT 04/28/2017 TECHNIQUE: Multiple axial CT images of the abdomen and pelvis were obtained without contrast. A dose lowering technique was used consistent with the principals of JONNY. FINDINGS: Lung bases are clear. No pneumoperitoneum. Imaged inferior cardiac chambers are unremarkable. Liver, spleen, pancreas and gallbladder are unremarkable. Bilateral nephrolithiasis again seen with at least 3 calculi on the left measuring up to 3-4 mm. Large calculus of the inferior pole right kidney measures 8 mm. Punctate calculus of the interpolar right kidney. Moderate right-sided hydroureteronephrosis secondary to multiple calculi of the distal right ureter. Additionally, there is mild right-sided perinephric and periureteral inflammatory stranding. The proximal most calculi measure up to 6 mm as seen on images 301 and 305 of series 3. There are at least 3 additional calculi of the distal right ureter just proximal to the right ureterovesicular junction measuring up to 8 mm. The left ureter and urinary bladder are unremarkable. Uterus and adnexa are also within normal limits. Abdominal aorta is normal in course and caliber. No bulky adenopathy. Minimal mildly prominent cortical jugular likely physiologic. No bowel obstruction. Moderate diffuse stool burden suggests constipation. Unchanged appearance of the appendix which contains high attenuating material and is mildly dilated, however is unchanged from comparison. No inflammatory changes to suggest acute appendicitis. Soft tissues are unremarkable. Bones appear intact. IMPRESSION: 1. Moderate right-sided hydroureteronephrosis secondary to multiple calculi of the distal right ureter measuring up to 8 mm as above. Multiple bilateral nonobstructing renal calculi are also present. 2. Suggested constipation. The above report was generated using voice recognition software. It may contain grammatical, syntax or spelling errors. Electronically signed by: Russel Stone M.D. 05/15/2017 2:56 PM Dictated Date/Time: 05/15/2017 2:44 PM Laboratory Results 05/15/17 14:22 Red Blood Count 3.55, Mean Corpuscular Volume 89.3, Mean Corpuscular Hemoglobin 29.6, Mean Corpuscular Hemoglobin Concent 33.1, Mean Platelet Volume 10.0, Neutrophils (%) (Auto) 44.8, Lymphocytes (%) (Auto) 41.1, Monocytes (%) (Auto) 10.5, Eosinophils (%) (Auto) 3.2, Basophils (%) (Auto) 0.3, Neutrophils # (Auto ) 3.05, Lymphocytes # (Auto) 2.81, Monocytes # (Auto) 0.72, Eosinophils # (Auto ) 0.22, Basophils # (Auto) 0.02 05/15/17 14:42 Test 05/15/17 14:00 05/15/17 14:22 05/15/17 14:42 Urine Color RED Urine Appearance TURBID (CLEAR) Urine pH 5.5 (4.5-7.5) Urine Specific [place] 1.025 (1.000-1.030) Urine Protein 2+ (NEG) Urine Glucose (UA) NEG (NEG) Urine Ketones NEG (NEG) Urine Occult Blood 3+ (NEG) Urine Nitrite NEG (NEG) Urine Bilirubin NEG (NEG) Urine Urobilinogen NEG (NEG) Urine Leukocyte Esterase NEG (NEG) Urine RBC >30 /hpf (0-4) Urine WBC 1-5 /hpf (0-5) Urine Epithelial Cells 10-20 /lpf (0-5) Urine Bacteria NEG (NEG) Urine Hyaline Casts 5-10 /lpf (0-5) Urine Test NEG (NEG) White Blood Count 6.83 K/uL (4.8-10.8) Red Blood Count 3.55 M/uL (4.2-5.4) Hemoglobin 10.5 g/dL (12.0-16.0) Hematocrit 31.7 % (37-47) Mean Corpuscular Volume 89.3 fL (80-100) Mean Corpuscular Hemoglobin 29.6 pg (25-34) Mean Corpuscular Hemoglobin Concent 33.1 g/dl (32-36) Platelet Count 245 K/uL (130-400) Mean Platelet Volume 10.0 fL (7.4-10.4) Neutrophils (%) (Auto) 44.8 % Lymphocytes (%) (Auto) 41.1 % Monocytes (%) (Auto) 10.5 % Eosinophils (%) (Auto) 3.2 % Basophils (%) (Auto) 0.3 % Neutrophils # (Auto) 3.05 K/uL (1.4-6.5) Lymphocytes # (Auto) 2.81 K/uL (1.2-3.4) Monocytes # (Auto) 0.72 K/uL (0.11-0.59) Eosinophils # (Auto) 0.22 K/uL (0-0.5) Basophils # (Auto) 0.02 K/uL (0-0.2) RDW Standard Deviation 46.6 fL (36.4-46.3) RDW Coefficient of Variation 14.1 % (11.5-14.5) Immature Granulocyte % (Auto) 0.1 % Immature Granulocyte # (Auto) 0.01 K/uL (0.00-0.02) Anion Gap 7.0 mmol/L (3-11) Est Creatinine Clear Calc Drug Dose 108.1 ml/min Estimated GFR () 140.4 Estimated GFR (Non- 121.1 BUN/Creatinine Ratio 21.8 (10-20) Calcium Level 8.1 mg/dl (8.5-10.1) Total Bilirubin 0.1 mg/dl (0.2-1) Direct Bilirubin < 0.1 mg/dl (0-0.2) Aspartate Amino Transf (AST/SGOT) 13 U/L (15-37) Alanine Aminotransferase (ALT/SGPT) 16 U/L (12-78) Alkaline Phosphatase 69 U/L (45-117) Total Protein 6.8 gm/dl (6.4-8.2) Albumin 3.4 gm/dl (3.4-5.0) Lipase 68 U/L (73-393) Laboratory results as stated above per my review. Medications Administered Medications (Trade) Dose Ordered Sig/Juwan Route Start Time Stop Time Status Last Admin Dose Admin Sodium Chloride 1,000 ml @ 999 mls/hr Q1H1M STAT IV 05/15/17 13:41 05/15/17 14:41 DC 05/15/17 14:32 999 MLS/HR Fentanyl Citrate (Fentanyl Inj) 100 mcg NOW STAT IV 05/15/17 13:41 05/15/17 13:43 DC 05/15/17 14:24 100 MCG Ondansetron HCl (Zofran Inj) 4 mg NOW STAT IV 05/15/17 13:41 05/15/17 13:43 DC 05/15/17 14:25 4 MG Ketorolac Tromethamine (Toradol Inj) 30 mg NOW STAT IV 05/15/17 13:41 05/15/17 13:43 DC 05/15/17 14:25 30 MG ED Course 1333: Previous medical records were reviewed. The patient was evaluated in room B8. A complete history and physical examination was performed. 1341: Ordered Toradol Inj 30 mg IV, Zofran Inj 4 mg IV, Fentanyl Inj 100 mcg IV , NSS 1000 ml @ 999 mls/hr IV. 1535: I discussed the patient with Dr. Cali - [facility] - he says to stay the course, and discharge the patient with pain medication, hydration, and have her follow-up. 1940: Flomax po. 1540: On reevaluation, the patient is resting. I discussed the results and findings with the patient. She verbalized agreement of the treatment plan. She was discharged home. Medical Decision Differential considered: pancreatitis, hepatitis, or acute cholecystitis, AAA, UTI, pyelonephritis, kidney stones, appendicitis, diverticulitis, shingles, bowel obstruction mesenteric ischemia, intussusception, hernia, ovarian torsion , ruptured ovarian cyst, ectopic , . This is a 31-year-old female who presents to the ED with a chief complaint of abdominal discomfort and hematuria. The patient had lithotripsy on 05/08/17 to destroy a 1cm proximal ureteral stone. The patient reports having had some mild hematuria after this but today the patient had an increase in discomfort mainly throughout her entire abdomen associated with increased hematuria. She states the hematuria has been present for about 2 days. Her last menstrual periods was 2 weeks ago. She denies nausea, vomiting, diarrhea or fevers. She reports some cramps intermittently in the abdomen. The patient has a relatively normal exam. Abdomen soft and nontender. She does have gross blood on urine visualization. A CT scan of the abdomen and pelvis reveals moderate right-sided hydronephrosis secondary to multiple calculi in the distal right ureter measuring up to 8 mm. CBC was normal, test was negative. Urine shows 3+ blood. Chemistries were unremarkable. The patient was treated here with IV fluids, IV Toradol, IV fentanyl and IV Zofran. She did have improvement of her symptoms. I spoke with Dr. Cali about the CT scan results. He recommended that the patient stated course and provided pain medication and Flomax. She was to drink plenty of fluids. The patient is comfortable at this point and is agreeable with plan. She will be discharged on Percocet and Flomax. She was advised to take ibuprofen 600 mg every 6 hours as well. She does have a urine strainer already. Medication Reconcilliation Current Medication List: was personally reviewed by me Blood Pressure Screening Patient's blood pressure: Elevated blood pressure Blood pressure disposition: Elevated BP felt to be situational Consults Time Called: 1530 Consulting Physician: Dr. Viraj CABRERA urology Returned Call: 1531 I discussed the patient with Dr. Viraj CABRERA urology - he says to stay the course, and discharge the patient with pain medication, hydration, and have her follow-up. Impression Primary Impression: Renal colic on right side Additional Impressions: Ureteral stone Hematuria Scribe Attestation The scribe's documentation has been prepared under my direction and personally reviewed by me in its entirety. I confirm that the note above accurately reflects all work, treatment, procedures, and medical decision making performed by me. Departure Information Dispostion Home / Self-Care Prescriptions Docusate Sodium (COLACE) 100 Mg Cap 1 CAP PO BID for 10 Days, #20 CAP Prov: Bc Onofre D.O. 05/15/17 Oxycodone/Acetaminophen 5MG/325MG (PERCOCET 5MG/325MG) Tab 1 TAB PO Q6H Y for Pain, #20 TAB Prov: Bc Onofre D.O. 05/15/17 Tamsulosin Hcl (FLOMAX) 0.4 Mg Cap 0.4 MG PO HS, #10 CAP Prov: Bc Onofre D.O. 05/15/17 Referrals Josue Mayer D.O. (PCP) Patient Instructions My [facility] Additional Instructions Flomax as prescribed. Take ibuprofen 600 mg every 6 hours until stone is passed. Percocet as prescribed. No driving within 6 hours of use. Do not take additional Tylenol while taking Percocet. Colace as prescribed for constipation. Strain urine for stones. Drink plenty of fluids. Follow-up with Dr. Mayer next week for recheck. Returns for significant worsening, fevers, vomiting or other concerns. Problem Qualifiers
[2017-05-15 15:59] VITALS: BP 123/81; PULSE 70; TEMP 36.8; O2SAT 99
[2017-05-15 16:20] LABS: ALT/SGPT 16 U/L (12-78); BLOOD UREA NITROGEN 13 mg/dl (7-18); BUN/CREATININE RATIO 21.8 (10-20); CALCIUM 8.1 mg/dl (8.5-10.1); CARBON DIOXIDE 25 mmol/L (21-32); CHLORIDE 107 mmol/L (98-107); CREATININE 0.58 mg/dl (0.60-1.20); GLUCOSE 79 mg/dl (70-99); POTASSIUM 3.2 mmol/L (3.5-5.1); SODIUM 139 mmol/L (136-145)
[2017-05-15 16:23] LABS: ALKALINE PHOSPHATASE 69 U/L (45-117); AST/SGOT 13 U/L (15-37)
== END 2017-05-15 16:00 | disposition home or self-care (01) ==
LOC: C.EDB 13:20
DX: N20.1 Calculus of ureter (principal); R31.9 Hematuria, unspecified; F17.200 Nicotine dependence, unspecified, uncomplicated; Z86.14 Personal history of Methicillin resistant Staphylococcus aureus infection; Z87.442 Personal history of urinary calculi; Z98.890 Other specified postprocedural states; Z79.899 Other long term (current) drug therapy; Z83.3 Family history of diabetes mellitus

== ENCOUNTER → 2017-05-28 | Outpatient (CLI) | payer OTHER ==
[~2017-05-28] MED LIST changes: -CIPR-255 PO; +OXYC-57 PO; -OXYC7.5T65 PO; -PHEN-775 PO
== END | disposition home or self-care (01) ==
LOC: C.LAB 15:19
PROVIDERS: ATTEND Urology
DX: N20.1 Calculus of ureter (principal)

== ENCOUNTER 2017-11-04 15:19 | Emergency (ER) | payer SELFPAY ==
[~2017-11-04] VITALS: Ht 149.9 cm; Wt 56.8 kg
[~2017-11-04 15:19] MED LIST changes: -BUPR1SUB23 PO
[2017-11-04 15:30] VITALS: BP 151/98; PULSE 82; TEMP 36.6; O2SAT 99; Ht 149.9 cm; Wt 56.8 kg
[2017-11-04] MEDS ORDERED: OXYC-57 PO (16:36)
[2017-11-04] MEDS ORDERED: CEPH500C PO (16:36)
[2017-11-04] MEDS ORDERED: VALA1TAB31 PO (16:36)
--- NOTE | 2017-11-04 16:46 | EMERGENCY ROOM VISIT NOTE ---
History First contact with patient: 15:33 Chief Complaint: RASH Stated Complaint: RED BLISTER ON HEAD HURTS History of Present Illness The patient is a 32 year old female who presents to the Emergency Room via private vehicle with complaints of "red blister on head, hurts" the patient states that for the past 3 days she has been experiencing. She points to the back of her head as a location where the irritation first began to small red vesicles. The pain is described as a burning sensation. She rates the overall pain is a 10/10. She states that she thought that this was from dandruff but it persisted. Even after showering and scrubbing the area. She has had no fevers, chills, nausea or vomiting lately. Denies any close contacts with similar symptoms. She states that for the past 3 days she has also felt tired, lethargic and muscle pains. She has never had shingles before but does know she had chickenpox as a child. Review of Systems A complete 6-point Review of Systems was discussed with the patient, with pertinent positives and negatives listed in the History of Present Illness. All remaining Review of Systems questions can be considered negative unless otherwise specified. Past Medical/Surgical History Medical Problems: (1) Fibroid (bleeding) (uterine) (2) Kidney stones (3) Methicillin resistant Staphylococcus aureus infection (4) Uterine fibroid Surgical Problems: (1) History of lithotripsy Family History Diabetes mellitus Social History Smoking Status: Current Every Day Smoker Alcohol Use: none Drug Use: none Marital Status: single Housing Status: lives with family Occupation Status: employed Current/Historical Medications Scheduled Cephalexin Monohydrate (Keflex), 500 MG PO TID Valacyclovir Hcl (Valtrex), 1 GM PO TID Scheduled PRN Oxycodone/Acetaminophen 5MG/325MG (Percocet 5MG/325MG), 1 TAB PO Q4H PRN for Pain Physical Exam Vital Signs Date Time Temp Pulse Resp B/P (MAP) Pulse Ox O2 Delivery O2 Flow Rate FiO2 18 15:30 36.6 82 18 151/98 99 Room Air Physical Exam VITAL SIGNS - Vital signs and nursing notes were reviewed. Stable. GENERAL -32-year-old female appearing her stated age who is in no acute distress. Communicates well with provider and answers questions appropriately. SKIN -on the occiput region there are small subcentimeter erythematous blisters that appear to have been ruptured. There is also a central region on the superior occipital region favoring the right side which is a clustered group which appears to be scabbed over secondary to irritation. This follows a similar dermatome down towards the posterior right ear. There is no rash near the eye, on the face or in the ear. HEAD - NC/AT. EYES - PERRL with EOMI bilaterally. Sclera anicteric. EARS - No deformities of external structures noted on gross examination bilaterally. Medical Decision & Procedures Medical Decision Patient was seen and evaluated as above in room D9. Review was performed of nursing notes and vital signs. After obtaining a thorough history and physical examination the above work up was performed. She presents to us today with a 3 day history of pain on the posterior aspect of the right occipital region but then developed into blisters. She has broken these open and they were clear in nature. Given her history this is certainly concerning for that of shingles. She denies any immunocompromising health history, or medications. On exam this is consistent with that of shingles. I will treat with Valtrex. She notes that she has no insurance and I did work with her pharmacist as well as find coupons for the patient so that this could be covered at a much better cost. She will also be given Keflex in the event that she has a small underlying from her irritating/scratching the vesicles. Lastly, I will add Percocet for pain management given that these are quite painful. She was thoroughly educated upon these medications. We did help give her information for [facility] of which she will follow with. She is to return with worsening. The patient was educated upon management, had questions answered prior to discharge, and was discharged home in good condition. No red flags in the [place] drug monitoring system. Case was discussed with the attending physician. In the evaluation and treatment of this patient the following differential diagnoses were entertained: Shingles, cellulitis, skin eruption, drug reaction, among others. Impression Primary Impression: Shingles Departure Information Dispostion Home / Self-Care Condition GOOD Prescriptions Oxycodone/Acetaminophen 5MG/325MG (PERCOCET 5MG/325MG) Tab 1 TAB PO Q4H Y for Pain, #15 TAB For Initial Treatment Prov: Valdo Garza PA-C 11/04/17 Valacyclovir Hcl (VALTREX) 1 Gm Tab 1 GM PO TID for 7 Days, #21 TAB Prov: Valdo Garza PA-C 11/04/17 Cephalexin Monohydrate (Keflex) 500 Mg Cap 500 MG PO TID for 7 Days, #21 CAP Prov: Valdo Garza PA-C 11/04/17 Referrals No Doctor, Assigned (PCP) Patient Instructions ED Shingles, My [facility] Additional Instructions You have been treated in the Emergency Department for a suspected shingles. You have been prescribed Percocet to be used for pain control. This is a narcotic medication. You cannot drive or consume alcohol while on this medicine. This medicine should only be used for pain that cannot be controlled with [id number] pain medicines. Please no tylenol with this. Keflex 500mg every 8 hours for 7 days (alternatively doxycycline 100mg every 12 hours for 7 days) this is in case of bacterial infection on top of the shingles. For pain control, you can use the following [id number] medicines (if >12 yo): - Regular strength (325mg/tab) Tylenol (acetaminophen) 2 tabs every 4-6 hours as needed. Do not exceed 12 tablets in a 24 hour period. Avoid taking more than 3 grams (3000 mg) of Tylenol per day. This includes any other sources of acetaminophen you may take on a regular basis. Please do not take with the percocet. - Regular strength (200 mg/tab) Advil (ibuprofen) 1-2 tabs every 4-6 hours as needed. Do not exceed a dose of 3200 mg per day. Valtrex 1 g every 8 hours for 7 days. This is to help with the shingles. Please call to schedule follow-up with [facility]. Please return with any new/concerning symptoms. Return to the Emergency Department if your current symptoms worsen despite treatment course outlined above, or if you develop any new/concerning symptoms.
--- NOTE | 2017-11-04 17:23 | Pharmacy Progress Note ---
ED Pharmacist Progress Note Date of Service: Nov 04, 2017. Patient is self-pay. GoodRx coupon at [facility] pharmacy printed by Valdo - wanted to confirm if [facility] would honor the coupon. Called Branden Panchal - provided verbal Rx as follows. Medications Dose Route/Sig Max Daily Dose Days Date Category Dose Instructions Valtrex (Valacyclovir Hcl) 1 Gm Tab 1 Gm PO TID 7 11/04/17 Rx I also faxed the GoodRx coupon. Per [facility] pharmacist, patient's haines will be $19.23 with the coupon. [facility] is aware and will not provide the patient with the hard copy Rx for the valacyclovir that was printed as I provided [facility] pharmacy with a verbal prescription (which was required to determine patient-specific haines).
== END 2017-11-04 17:28 | disposition home or self-care (01) ==
LOC: C.EDB 15:20 → C.EDD 17:28
DX: B02.9 Zoster without complications (principal); F17.200 Nicotine dependence, unspecified, uncomplicated